=== PATIENT | female | born 1930 | race Caucasian/White ===

== ENCOUNTER → 2016-10-31 | Outpatient (CLI) | payer OTHER, BC ==
[~2016-10-31] MED LIST: ACET1TAB84 PO; ALPH1CAP PO; AMLO-110 PO; ATOR10TA88 PO; B-COCAP2 PO; BIOTPOW17 PO; CEPH500C2 PO; CHOLCAP5 PO; CYAN500T PO; FRRS300 PO; FURO-85 PO; KRIL1CAP7 PO; LACTCHW3 PO; MULTCAP36 PO; MULTTAB PO; POTA10CA28 PO; SULF800T23 PO; TYLOTC500 PO; VALS-58 PO
[2016-10-31 17:21] LABS: BLOOD UREA NITROGEN 24 mg/dl (7-18); BUN/CREATININE RATIO 29.1 (10-20); CALCIUM 9.3 mg/dl (8.5-10.1); CARBON DIOXIDE 29 mmol/L (21-32); CHLORIDE 106 mmol/L (98-107); CREATININE 0.84 mg/dl (0.60-1.20); GLUCOSE 95 mg/dl (70-99); POTASSIUM 3.6 mmol/L (3.5-5.1); SODIUM 142 mmol/L (136-145)
[2016-10-31 17:26] LABS: BASO % 0.1 %; BASO ABS # 0.01 K/uL (0-0.2); COMPLETE YES; EOS % 0.2 %; HEMATOCRIT 36.9 % (37-47); IG% 0.2 %; LYMPH ABS # 1.14 K/uL (1.2-3.4); MEAN CELL VOLUME 77.2 fL (80-100); MEAN CORPUSCULAR HEMOGLOBIN 24.5 pg (25-34); MEAN CORPUSCULAR HGB CONC 31.7 g/dl (32-36); MEAN PLATELET VOLUME 10.2 fL (7.4-10.4); MONO % 5.4 %; NEUT % 85.1 %; PLATELET COUNT 406 K/uL (130-400); RED BLOOD COUNT 4.78 M/uL (4.2-5.4); WHITE BLOOD COUNT 12.71 K/uL (4.8-10.8)
== END | disposition home or self-care (01) ==
LOC: C.LABBC 14:01
PROVIDERS: ATTEND Internal Medicine Geriatric Medicine
DX: I12.9 Hypertensive chronic kidney disease with stage 1 through stage 4 chronic kidney disease, or unspecified chronic kidney disease (principal); N18.9 Chronic kidney disease, unspecified; E21.3 Hyperparathyroidism, unspecified; M19.90 Unspecified osteoarthritis, unspecified site

== ENCOUNTER → 2016-11-13 | Outpatient (CLI) | payer OTHER, BC ==
[2016-11-13 11:46] LABS: MEAN CELL VOLUME 77.6 fL (80-100); MEAN CORPUSCULAR HEMOGLOBIN 25.1 pg (25-34); MEAN CORPUSCULAR HGB CONC 32.4 g/dl (32-36); MEAN PLATELET VOLUME 9.4 fL (7.4-10.4); PLATELET COUNT 295 K/uL (130-400); WHITE BLOOD COUNT 9.28 K/uL (4.8-10.8)
[2016-11-13 12:20] LABS: FERRITIN 32.3 ng/ml (8.0-388.0)
--- NOTE | 2016-11-20 07:45 | CODING QUERY MEDICAL NECESSITY ---
CQSUPPORTING DIAGNOSIS NEEDED A supporting diagnosis is required for the test/procedure performed on this patient in order for us to be reimbursed by the patient's insurance. Please provide a supporting diagnosis for the following test/procedure listed below next to the test name along with your signature. *If there is no additional diagnosis for this patient that would support the following test/procedure please document that below next to the test/procedure. Test(s)/Procedure(s) that require a supporting diagnosis: DOS 11/13/16 VITAMIN B12 TEST Provider Signature: Date: Thank you Trisha Villagomez Health Information Management Once completed, please kindly fax back to [phone] For questions please call [phone]
== END | disposition home or self-care (01) ==
LOC: C.LAB 10:48
PROVIDERS: ATTEND Internal Medicine Geriatric Medicine
DX: D64.9 Anemia, unspecified (principal)

== ENCOUNTER → 2016-11-21 | Outpatient (CLI) | payer OTHER, BC ==
--- NOTE | 2016-11-21 10:40 | DIAGNOSTIC IMAGING REPORT ---
ULTRASOUND VENOUS DOPPLER LWR EXT BILA CLINICAL HISTORY: BILAT LEG SWELLING COMPARISON STUDY: 11/25/2014 FINDINGS: Real-time and color flow Doppler imaging were performed. Flow was seen within the femoral, popliteal and calf veins with no intraluminal thrombus demonstrated. The saphenous vein is patent. There is a right popliteal cyst measuring 19 x 65 x 15 mm. There is a left popliteal cyst measuring 27 x 41 x 15 mm. IMPRESSION: No evidence of lower extremity DVT. Electronically signed by: Gregory Woodruff M.D. 11/21/2016 10:38 AM Dictated Date/Time: 11/21/2016 10:37 AM
== END | disposition home or self-care (01) ==
LOC: C.ULTRBC 09:50
PROVIDERS: ATTEND Internal Medicine Geriatric Medicine
DX: R60.0 Localized edema (principal)

== ENCOUNTER → 2016-11-28 | Outpatient (CLI) | payer OTHER, BC ==
--- NOTE | 2016-11-28 13:41 | DIAGNOSTIC IMAGING REPORT ---
FLUOROSCOPICALLY GUIDED LEFT HIP ANESTHETIC AND STEROID INJECTION CLINICAL HISTORY: LT HIP ARTHRITIS COMPARISON STUDY: None FLUOROSCOPY TIME: 41 seconds. A single fluoroscopic spot image was acquired.. FINDINGS: A timeout was performed. The risks the procedure were explained the patient informed consent was obtained. The patient was prepped and draped in sterile fashion. The skin was anesthetized 1% lidocaine. A 20-gauge spinal was introduced the joint capsule. Intra-articular location was documented with water-soluble contrast injection. 2 cc of betamethasone, and 3 cc of bupivacaine was then instilled into the joint capsule. There were no immediate complications. IMPRESSION: Successful intra-articular left hip injection. 2 cc of betamethasone and 3 cc of bupivacaine were introduced into the joint capsule. Electronically signed by: Gregory Woodruff M.D. 11/28/2016 1:39 PM Dictated Date/Time: 11/28/2016 1:37 PM
== END | disposition home or self-care (01) ==
LOC: C.RADBC 12:28
PROVIDERS: ATTEND Orthopaedic Surgery
DX: M16.12 Unilateral primary osteoarthritis, left hip (principal)

== ENCOUNTER → 2017-02-05 | Outpatient (CLI) | payer OTHER, BC ==
[~2017-02-05] MED LIST changes: +ATOR10TA82 PO; -ATOR10TA88 PO
[2017-02-05 13:28] LABS: COMPLETE YES; EOS % 0.4 %; HEMATOCRIT 39.1 % (37-47); IG% 0.2 %; LYMPH ABS # 1.22 K/uL (1.2-3.4); MEAN CELL VOLUME 81.5 fL (80-100); MEAN CORPUSCULAR HEMOGLOBIN 26.3 pg (25-34); MEAN CORPUSCULAR HGB CONC 32.2 g/dl (32-36); MEAN PLATELET VOLUME 9.8 fL (7.4-10.4); MONO % 4.1 %; NEUT % 83.3 %; PLATELET COUNT 289 K/uL (130-400); WHITE BLOOD COUNT 10.18 K/uL (4.8-10.8)
[2017-02-05 13:58] LABS: CHOLESTEROL/HDL RATIO 2.6
[2017-02-05 14:05] LABS: BLOOD UREA NITROGEN 25 mg/dl (7-18); BUN/CREATININE RATIO 29.5 (10-20); CARBON DIOXIDE 25 mmol/L (21-32); CHLORIDE 107 mmol/L (98-107); CREATININE 0.84 mg/dl (0.60-1.20); GLUCOSE 110 mg/dl (70-99); POTASSIUM 3.6 mmol/L (3.5-5.1); SODIUM 143 mmol/L (136-145)
[2017-02-05 14:15] LABS: CALCIUM 9.5 mg/dl (8.5-10.1)
== END | disposition home or self-care (01) ==
LOC: C.LABBC 10:11
PROVIDERS: ATTEND Internal Medicine Geriatric Medicine
DX: E78.5 Hyperlipidemia, unspecified (principal); I12.9 Hypertensive chronic kidney disease with stage 1 through stage 4 chronic kidney disease, or unspecified chronic kidney disease; M81.0 Age-related osteoporosis without current pathological fracture; D64.9 Anemia, unspecified; N18.9 Chronic kidney disease, unspecified

== ENCOUNTER 2017-03-28 12:50 | Emergency (ER) | payer OTHER, BC ==
[~2017-03-28 12:50] MED LIST changes: -ACET1TAB84 PO; -CEPH500C2 PO; -FRRS300 PO; -KRIL1CAP7 PO; -LACTCHW3 PO; -SULF800T23 PO
[2017-03-28 13:07] VITALS: TEMP 36.6; Ht 157.5 cm
[2017-03-28] MEDS ORDERED: KRIL1CAP7 PO (13:58)
[2017-03-28] MEDS ORDERED: FRRS300 PO (13:58)
[2017-03-28] MEDS ORDERED: ACET1TAB84 PO (13:58)
--- NOTE | 2017-03-28 14:01 | DIAGNOSTIC IMAGING REPORT ---
LEFT ANKLE 3 VIEWS CLINICAL HISTORY: Left ankle pain and swelling. Trauma. FINDINGS: 3 views of the left ankle are obtained. No prior studies are available for comparison at the time of dictation. The skeletal structures are osteopenic. No fracture is seen. The ankle mortise is intact. There is no significant joint effusion. Soft tissue edema is present throughout the visualized left lower extremity. Calcified phleboliths are noted in the pretibial region. There is a plantar calcaneal enthesophyte and mild degenerative spurring along the dorsal aspect of the tarsal bones. IMPRESSION: Soft tissue swelling with no radiographic evidence of left ankle fracture. Electronically signed by: Kayden Neff M.D. 03/28/2017 2:00 PM Dictated Date/Time: 03/28/2017 1:59 PM
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
[2017-03-28 15:55] VITALS: BP 148/54; PULSE 64; O2SAT 95
--- NOTE | 2017-03-28 23:32 | EMERGENCY ROOM VISIT NOTE ---
ED Visit Note First contact with patient: 15:14 I have personally seen and evaluated the patient with the PA. I agree with the diagnosis and management decisions and have been personally involved in the case. Please see Rebekah Holloway PA-C's notes for further details of the history, physical and visit.
[2017-03-30] MEDS ORDERED: CEPH500C2 PO (09:04)
[2017-04-05] MEDS ORDERED: CEPH500C2 PO (16:33)
[2017-04-05] MEDS ORDERED: SULF800T23 PO (16:33)
[2017-04-05] MEDS ORDERED: LACTCHW3 PO (16:33)
== END 2017-03-28 15:57 | disposition home or self-care (01) ==
LOC: C.EDB 12:51 → C.EDD 15:57
DX: S80.12XA Contusion of left lower leg, initial encounter (principal); X58.XXXA Exposure to other specified factors, initial encounter; I12.9 Hypertensive chronic kidney disease with stage 1 through stage 4 chronic kidney disease, or unspecified chronic kidney disease; N18.9 Chronic kidney disease, unspecified; E78.5 Hyperlipidemia, unspecified; Z86.19 Personal history of other infectious and parasitic diseases; Z79.899 Other long term (current) drug therapy; Z91.09 Other allergy status, other than to drugs and biological substances

== ENCOUNTER → 2017-03-28 | Outpatient (CLI) | payer OTHER, BC ==
[~2017-03-28] MED LIST changes: -ATOR10TA82 PO; +ATOR10TA88 PO
--- NOTE | 2017-03-28 12:51 | DIAGNOSTIC IMAGING REPORT ---
ULTRASOUND LEFT LOWER EXTREMITY VENOUS CLINICAL HISTORY: Left leg pain and erythema. COMPARISON STUDY: Left lower extremity venous ultrasound dated 01/04/2017. TECHNIQUE: Real-time, grayscale, and color Doppler sonography of the deep veins of the left lower extremity was performed from the inguinal crease to the calf. Compression and augmentation were utilized. FINDINGS: There is no sonographic evidence of deep venous thrombosis identified in the left lower extremity. The common femoral, superficial femoral, and popliteal veins are patent and normally compressible. The greater saphenous vein and the profunda femoris vein at the junction with the common femoral vein are clear. The visualized calf veins are patent. A popliteal cyst measures 4.8 x 1.2 x 2.9 cm. IMPRESSION: 1. There is no sonographic evidence of deep venous thrombosis identified in the left lower extremity. 2. Small popliteal cyst. Electronically signed by: Kayden Neff M.D. 03/28/2017 12:50 PM Dictated Date/Time: 03/28/2017 12:49 PM
== END | disposition home or self-care (01) ==
LOC: C.ULTR 12:09
PROVIDERS: ATTEND Emergency Medicine
DX: M79.605 Pain in left leg (principal); R23.8 Other skin changes; M71.22 Synovial cyst of popliteal space [Baker], left knee

== ENCOUNTER 2017-04-02 15:20 | Inpatient (IN) | payer OTHER, BC ==
[~2017-04-02] VITALS: Ht 154.9 cm; Wt 75.2 kg
[~2017-04-02 15:20] MED LIST changes: +ACET1TAB84 PO; -B-COCAP2 PO; -BIOTPOW17 PO; +CEPH500C2 PO; +FRRS300 PO; +KRIL1CAP7 PO; -TYLOTC500 PO; -VALS-58 PO
[2017-04-02 17:00] VITALS: BP 161/83; TEMP 36.8; O2SAT 94
[2017-04-02 17:01] VITALS: BP 161/83; PULSE 96; TEMP 36.8; O2SAT 94
[2017-04-02] MEDS ORDERED: PATIENT'S HEIGHT AND/OR WEIGHT NEEDED SCH (18:30)
[2017-04-02 18:32] VITALS: Ht 154.9 cm; Wt 75.2 kg
--- NOTE | 2017-04-02 19:03 | Medical Student: [facility] ---
Med Student History & Physical Date & Time of Service: Apr 02, 2017 at 18:56 Chief Complaint: Left Lower Extremity Cellulitis Primary Care Physician: Josiah Goldstein M.D. History of Present Illness Source: patient, family (Kayden (son)) Mrs. 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 She sustained a wound on her left anterior agarwal when she ran into a table 2 weeks ago and went to her local urgent care to have the leg bandaged. She over the next few days she developed warmth and sensitivity to touch in her left leg which prompted her to see her PCP Dr. Goldstein. She was referred to the [facility] wound care clinic where she underwent wound debridement, cultures positive for Staph aureus and she was started on Keflex on 03/28/17. She returned to the wound care clinic on 04/02/17 for f/u and her wound had enlarged, prompting direct admission to the inpatient medical floor for suspected nosocomial cellulitis of the left lower extremity with increasing leg swelling and tenderness to touch. Bilateral lower extremity US negative for DVTs. Repeat wound cultures on 04/02/17 pending. Past Medical/Surgical History Medical Problems: (1) Contusion of left leg Status: Acute D&C MOHs surgery for squamous cell carcinoma Social History Smoking Status: Never Smoker Alcohol Use: occasionally Drug Use: none Marital Status: Housing status: lives alone Occupational Status: retired Immunizations History of Influenza Vaccine: Yes History of Tetanus Vaccine?: Yes History of Pneumococcal: Yes History of Hepatitis B Vaccine: No Allergies Coded Allergies: Iodine (Verified Allergy, Mild, RASH, 03/28/17) topical Povidone Iodine (Verified Allergy, Mild, RASH, 03/28/17) topical Uncoded Allergies: [id number] (Allergy, Mild, RASH, 03/11/15) [id number] (Allergy, Mild, RASH, 03/11/15) Medications Acetaminophen (Tylenol Arthritis Ext Rel), 650 MG PO Q8H Alpha-Lipoic Acid (Thioctic Ac (Alpha-Lipoic Acid), 600 MG PO DAILY Amlodipine (Norvasc), 5 MG PO DAILY Atorvastatin (Lipitor), 10 MG PO HS Cephalexin Monohydrate (Keflex), 500 MG PO TID Cholecalciferol (Vitamin D3), 1 CAP PO DAILY Cyanocobalamin (Vitamin B-12), 1,000 MCG PO DAILY Ferrous Sulfate (Ferrous Sulfate), 325 MG PO DAILY Furosemide (Lasix), 20 MG PO DAILY Krill Oil (Krill Oil [place]-3), 1 CAP PO DAILY Multiple Vitamins W/ Minerals (Preservision/Lutein), 1 CAPSULE PO BID Multivitamins/Minerals (Mvi With Minerals), 1 TAB PO DAILY Potassium Chloride (Micro-K Ext Rel), 10 MEQ PO BID Review of Systems Constitutional: No fever, No chills, No sweats Eyes: No eye pain, No diplopia ENT: No sore throat, No trouble swallowing Respiratory: No cough, No wheezing, No shortness of breath Cardiovascular: + edema (L>R), No chest pain, No palpitations Abdomen: No pain, No nausea, No vomiting Musculoskeletal: + swelling (LLE > RLE ), + calf pain Genitourinary - Female: No urinary frequency, No urinary urgency, No urinary incontinence Neurologic: No paralysis, No weakness, No numbness/tingling Physical Exam Vital Signs (24 Hours) Date Time Temp Pulse Resp B/P (MAP) Pulse Ox O2 Delivery O2 Flow Rate FiO2 04/02/17 17:01 36.8 96 18 161/83 (109) 94 Room Air 04/02/17 17:00 36.8 18 161/83 General Appearance: + mild distress, + obese Head: normocephalic, atraumatic Eyes: normal inspection, PERRL, EOMI ENT: normal ENT inspection, hearing grossly normal, pharynx normal Neck: supple, no adenopathy, no carotid bruits Respiratory/Chest: lungs clear, normal breath sounds, no respiratory distress, no accessory muscle use Cardiovascular: regular rate, rhythm, no gallop, no murmur Abdomen/GI: normal bowel sounds, non tender, soft Extremities/Musculoskelatal: + calf tenderness (bilateral lower extremities exquisitely tender to palpation), + swelling (L>R, warm lower legs) Neurologic/Psych: ship's captain II-XII nml as tested, alert, normal mood/affect, oriented x 3 Skin: + pertinent finding (swollen left lower leg approx 5cm x 15cm and outlined by wound care, skin is taut and warm to touch) Impression Assessment and Plan This is a 86yo female with a 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 Initial cultures showed Staph aureus. Repeat cultures from 04/02/17 pending. Plan: 1. Left lower extremity cellulitis, cultures 04/02/17 pending -Start Vancomycin 1800mg [id number], 536ml @ 200mls/hr -Start ceftriaxone 1g, 50ml @ 100mls/hr -vancomycin trough level, draw on 04/04/17 before second dose of vancomycin -CBC drawn 04/03/17 AM -CMP drawn 04/03/17 AM -Consider PICC line as patient has history of "rolling veins" and is a hard stick 2. ?CHF -Continue home furosemide 20mg PO daily -Continue home potassium chloride 10meq PO daily 3. Hyperlipidemia -Continue home atorvastatin 10mg PO daily 4. Hypertension -Continue home amlodipine 5mg PO daily Pain -PRN Tylenol 650mg PO [id number] PRN pain FEN/GI -Regular diet -vitamin D 5000IU PO daily -vitamin B12 1000mcg PO daily DVT prophylaxis -Patient may ambulate as tolerated Disposition -Location: home to [place] [facility] -Date: TBD Level of Care Med/Surg DVT Prophylaxis patient low risk - not indicated (patient may ambulate as tolerated) Social Service Consult None Apply
[2017-04-02] MEDS ORDERED: VANCOMYCIN INJ 1,800 MG in SODIUM CHLORIDE 0.9% 500ML 500 ML IV ONE (19:30)
[2017-04-02] MEDS ORDERED: ONDANSETRON INJ 2 MG/ML 2 ML VIAL IV PRN (20:00)
[2017-04-02] MEDS ORDERED: ACETAMINOPHEN 325 MG TAB PO PRN (20:00)
[2017-04-02 20:24] LABS: COMPLETE YES; EOS % 0.7 %; HEMATOCRIT 40.5 % (37-47); IG% 0.3 %; LYMPH % 11.4 %; LYMPH ABS # 1.23 K/uL (1.2-3.4); MEAN CELL VOLUME 82.3 fL (80-100); MEAN CORPUSCULAR HEMOGLOBIN 27.6 pg (25-34); MEAN CORPUSCULAR HGB CONC 33.6 g/dl (32-36); MEAN PLATELET VOLUME 9.4 fL (7.4-10.4); MONO % 7.9 %; NEUT % 79.7 %; PLATELET COUNT 303 K/uL (130-400); RED BLOOD COUNT 4.92 M/uL (4.2-5.4)
--- NOTE | 2017-04-02 20:26 | Pharmacy Progress Note ---
Pharmacy Abx Initial Consult Date of Service Apr 02, 2017. Pharmacy Dosing Scope Date of Consult: 04/02/17 Consultation requested by: Dr. Luong Pharmacy is consulted to initiate Vancomycin IV dosing therapy, order appropriate labs and adjust drug dose/frequency. Subjective The patient is a 86 year old female admitted on Apr 02, 2017 at 16:36. Objective Height (Feet): 5 Height (Inches): 1.00 Weight (Kilograms): 75.200 Vital Signs (Past 12Hrs) Vital Signs Past 12 Hours Date Time Temp Pulse Resp B/P (MAP) Pulse Ox O2 Delivery O2 Flow Rate FiO2 04/02/17 17:01 36.8 96 18 161/83 (109) 94 Room Air 04/02/17 17:00 36.8 18 161/83 Lab Results (24Hrs) Laboratory Tests (24 Hours) Test 04/02/17 20:03 Risk Factors for Resistance * Antimicrobial use within the last 90 days; Keflex 03/28/17 to present Assessment & Plan Assessment 86 year old female admitted with left lower extremity cellulitis secondary to anterior agarwal wound * worsening pain and swelling despite being prescribed keflex PO on 03/28/17 * left leg culture from 03/28 grew MSSA * h/o walters sensitive Pseudomonas in left leg drainage (2010) Plan Vancomycin + Ceftriaxone IV for treatment of LLE cellulitis Vancomycin IV * Loading dose: 1800 mg (21 mg/kg) * Maintenance dose: 1250 mg IV (16.6 mg/kg) every 18 hours * Goal trough level for cellulitis : 15 to 20 mcg/mL (pending C&S results) * Trough level ordered for 04/05/17 Ceftriaxone 1g IV daily - not pharmacy consult Pharmacy will continue to follow and will adjust dose/frequency as necessary. Thank you.
[2017-04-02 20:43] LABS: BUN/CREATININE RATIO 26.1 (10-20); CALCIUM 9.2 mg/dl (8.5-10.1); CREATININE 0.74 mg/dl (0.60-1.20); POTASSIUM 3.7 mmol/L (3.5-5.1)
[2017-04-02 20:46] LABS: ALB/GLOB RATIO 0.9 (0.9-2)
[2017-04-02] MEDS: POTASSIUM CHLORIDE 10 MEQ TABCR PO SCH (21:00)
[2017-04-02] MEDS ORDERED: ATORVASTATIN 10 MG TAB PO SCH (21:00)
[2017-04-02] MEDS ORDERED: VANCOMYCIN CONSULT ACTIVE PRN (21:30)
[2017-04-02] MEDS: CEFTRIAXONE SOD INJ 1 GM in DEXTROSE 5% ADD-VANTAGE 50ML 50 ML IV SCH (21:33)
[2017-04-02 23:09] VITALS: BP 135/82; PULSE 78; TEMP 36.6; O2SAT 92
--- NOTE | 2017-04-03 02:38 | History and Physical ---
History & Physical Date & Time of Service: Apr 03, 2017 at 02:27. Patient was seen and examined on 04/02/2017 Chief Complaint: Left Lower Extremity Cellulitis Primary Care Physician: Josiah Goldstein M.D. History of Present Illness Source: patient, family The patient is a 86-year-old female who was referred from the wound care center today for persistent and noted worsening of left lower extremity cellulitis despite being on Keflex on March 28. Her wound culture has shown staph aureus pansensitive. She has been treated with Aquacel AG dressing. 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 The symptoms initially began after she ran into a table approximately 2 weeks ago and sustained a wound to her left anterior agarwal. Past Medical/Surgical History 1. Squamous cell carcinoma of the leg. 2. Bilateral knee osteoarthritis 3. Congestive heart failure 4. Hypertension 5. Hyperlipidemia 6. Chronic venous insufficiency 7. Vitamin B12 deficiency Family History Noncontributory Social History Smoking Status: Never Smoker Smokeless Tobacco Use: No Alcohol Use: none Drug Use: none Marital Status: Housing status: lives alone Occupational Status: retired Immunizations History of Influenza Vaccine: Yes History of Tetanus Vaccine?: Yes History of Pneumococcal: Yes History of Hepatitis B Vaccine: No Multi-Drug Resistant Organisms History of MDRO: No Allergies Coded Allergies: Iodine (Verified Allergy, Mild, RASH, 03/28/17) topical Povidone Iodine (Verified Allergy, Mild, RASH, 03/28/17) topical Uncoded Allergies: [id number] (Allergy, Mild, RASH, 03/11/15) [id number] (Allergy, Mild, RASH, 03/11/15) Home Medications Scheduled Acetaminophen (Tylenol Arthritis Ext Rel), 650 MG PO Q8H Alpha-Lipoic Acid (Thioctic Ac (Alpha-Lipoic Acid), 600 MG PO DAILY Amlodipine (Norvasc), 5 MG PO DAILY Atorvastatin (Lipitor), 10 MG PO HS Cephalexin Monohydrate (Keflex), 500 MG PO TID Cholecalciferol (Vitamin D3), 1 CAP PO DAILY Cyanocobalamin (Vitamin B-12), 1,000 MCG PO DAILY Ferrous Sulfate (Ferrous Sulfate), 325 MG PO DAILY Furosemide (Lasix), 20 MG PO DAILY Krill Oil (Krill Oil [place]-3), 1 CAP PO DAILY Multiple Vitamins W/ Minerals (Preservision/Lutein), 1 CAPSULE PO BID Multivitamins/Minerals (Mvi With Minerals), 1 TAB PO DAILY Potassium Chloride (Micro-K Ext Rel), 10 MEQ PO BID Review of Systems The patient denies chest pain, palpitations, shortness of breath, cough, sore throat, fevers, chills, sweats, weight change, fatigue, nausea, vomiting, abdominal pain, pelvic pain, blood in urine or stool, dysuria, urinary frequency or urgency, lightheadedness, dizziness, headache, memory loss, imbalance, focal or generalized weakness, numbness or tingling in arms, generalized arthralgias or myalgias, back or neck pain, night sweats, or allergy symptoms. The review of systems is otherwise negative other than for that already noted above, and at least 10 systems have been reviewed. Physical Exam Vital Signs Date Time Temp Pulse Resp B/P (MAP) Pulse Ox O2 Delivery O2 Flow Rate FiO2 04/03/17 00:45 Room Air 04/02/17 23:09 36.6 78 18 135/82 (99) 92 Room Air 04/02/17 17:01 36.8 96 18 161/83 (109) 94 Room Air 04/02/17 17:00 36.8 18 161/83 04/02/17 17:00 94 Room Air The patient is awake, well-developed and adequately nourished, alert and oriented 3, normocephalic and atraumatic, lying in bed and in no acute distress. HEENT--PERRL, EOMI, mucous membranes and oropharynx normal. Neck--supple, no JVD or bruits, thyroid normal, trachea midline, no adenopathy. Heart--normal S1 and S2, no extra beats, no murmurs, rubs or gallops. Lungs--clear bilaterally with good air movement, no respiratory distress, no accessory muscle use. Abdomen--normal bowel sounds and soft, nontender and nondistended, no hernias or masses, no organomegaly. Extremities--There are good distal pulses b/l. Dermatologic--swelling of left leg compared to right with trace to 1+ pitting edema, erythema area of erythema with 2 areas of surface abrasion. Neurologic--cranial nerves II through XII grossly intact, motor and sensory examination normal. Rheumatologic--normal range of motion Psychiatric--normal affect. Diagnostics Laboratory Results Results Past 24 Hours Test 04/02/17 20:03 Range/Units White Blood Count 10.80 4.8-10.8 K/uL Red Blood Count 4.92 4.2-5.4 M/uL Hemoglobin 13.6 12.0-16.0 g/dL Hematocrit 40.5 37-47 % Mean Corpuscular Volume 82.3 80-100 fL Mean Corpuscular Hemoglobin 27.6 25-34 pg Mean Corpuscular Hemoglobin Concent 33.6 32-36 g/dl Platelet Count 303 130-400 K/uL Mean Platelet Volume 9.4 7.4-10.4 fL Neutrophils (%) (Auto) 79.7 % Lymphocytes (%) (Auto) 11.4 % Monocytes (%) (Auto) 7.9 % Eosinophils (%) (Auto) 0.7 % Basophils (%) (Auto) 0.0 % Neutrophils # (Auto) 8.61 1.4-6.5 K/uL Lymphocytes # (Auto) 1.23 1.2-3.4 K/uL Monocytes # (Auto) 0.85 0.11-0.59 K/uL Eosinophils # (Auto) 0.08 0-0.5 K/uL Basophils # (Auto) 0.00 0-0.2 K/uL RDW Standard Deviation 47.1 36.4-46.3 fL RDW Coefficient of Variation 15.5 11.5-14.5 % Immature Granulocyte % (Auto) 0.3 % Immature Granulocyte # (Auto) 0.03 0.00-0.02 K/uL Sodium Level 141 136-145 mmol/L Potassium Level 3.7 3.5-5.1 mmol/L Chloride Level 107 98-107 mmol/L Carbon Dioxide Level 31 21-32 mmol/L Anion Gap 3.0 3-11 mmol/L Blood Urea Nitrogen 19 7-18 mg/dl Creatinine 0.74 0.60-1.20 mg/dl Est Creatinine Clear Calc Drug Dose 52.5 ml/min Estimated GFR () 86.2 Estimated GFR (Non- 74.4 BUN/Creatinine Ratio 26.1 10-20 Random Glucose 100 70-99 mg/dl Calcium Level 9.2 8.5-10.1 mg/dl Total Bilirubin 0.3 0.2-1 mg/dl Aspartate Amino Transf (AST/SGOT) 18 15-37 U/L Alanine Aminotransferase (ALT/SGPT) 24 12-78 U/L Alkaline Phosphatase 105 45-117 U/L Total Protein 6.8 6.4-8.2 gm/dl Albumin 3.3 3.4-5.0 gm/dl Globulin 3.5 2.5-4.0 gm/dl Albumin/Globulin Ratio 0.9 0.9-2 Impression Assessment and Plan Left lower extremity cellulitis/bilateral squamous cell carcinoma--stop oral Keflex. Start Vancomycin IV per pharmacokinetic monitoring, and ceftriaxone 1 g IV daily. Keep leg from being dependent. Consult wound care. Consult infectious disease Patient reports being a difficult IV stick, therefore suggested to consider a PICC line. Hypertension/CHF versus Venous insufficiency--continue amlodipine 5 mg by mouth daily, furosemide 20 mg by mouth daily and potassium chloride 10 mEq by mouth twice a day. Hyperlipidemia--continue atorvastatin 10 mg by mouth at bedtime. Vitamin B-12 deficiency--continue supplement 1000 g by mouth daily. Continue vitamin D, ferrous sulfate and multivitamins with minerals. Level of Care Med/Surg Advanced Directives Existing Advance Directive: No Existing Living Will: No Existing Power of Carbon Dioxide Operator: Yes Resuscitation Status FULL RESUSCITATION VTE Prophylaxis VTE Risk Assessment Done? Y/N: Yes Risk Level: Moderate Given or contraindicated: Treatment not indicated
[2017-04-03 07:22] LABS: BASO % 0.1 %; BASO ABS # 0.01 K/uL (0-0.2); COMPLETE YES; EOS % 1.6 %; HEMATOCRIT 39.4 % (37-47); IG% 0.1 %; LYMPH % 14.6 %; LYMPH ABS # 1.08 K/uL (1.2-3.4); MEAN CELL VOLUME 82.9 fL (80-100); MEAN CORPUSCULAR HEMOGLOBIN 27.4 pg (25-34); MEAN PLATELET VOLUME 9.5 fL (7.4-10.4); NEUT % 75.6 %; PLATELET COUNT 271 K/uL (130-400); RED BLOOD COUNT 4.75 M/uL (4.2-5.4); WHITE BLOOD COUNT 7.39 K/uL (4.8-10.8)
[2017-04-03 07:26] VITALS: BP 160/89; PULSE 78; TEMP 36.4; O2SAT 93
[2017-04-03 07:48] LABS: BUN/CREATININE RATIO 21.7 (10-20); CALCIUM 8.8 mg/dl (8.5-10.1); CREATININE 0.63 mg/dl (0.60-1.20); MAGNESIUM 2.3 mg/dl (1.8-2.4); POTASSIUM 3.7 mmol/L (3.5-5.1)
[2017-04-03] MEDS: FERROUS SULFATE 325 MG TAB PO SCH (07:58)
[2017-04-03] MEDS: POTASSIUM CHLORIDE 10 MEQ TABCR PO SCH ×2 (07:58→20:34)
[2017-04-03] MEDS: FUROSEMIDE 20 MG TAB PO SCH (07:58)
[2017-04-03] MEDS: CYANOCOBALAMIN 500 MCG TAB (VIT B-12) PO SCH (07:59)
[2017-04-03] MEDS: CHOLECALCIFEROL 1000 INTER.UNIT TAB PO SCH (07:59)
[2017-04-03] MEDS: ATORVASTATIN 10 MG TAB PO SCH (07:59)
[2017-04-03] MEDS: AMLODIPINE BESYLATE 5 MG TAB PO SCH (07:59)
--- NOTE | 2017-04-03 09:54 | Medical Consult ---
Consultation Date of Consultation: Apr 03, 2017. Attending Physician: Jamie Luong M.D. Reason for Consultation: Left lower extremity cellulitis History of Present Illness 86-year-old female in reasonably good health status post removal of squamous cell carcinoma from her left leg, who then suffered laceration recently involving her left agarwal, was seen at an urgent care center treated with Steri- Strips. She eventually went to the wound Care Center were cultures were done and patient recently grew a methicillin sensitive Staph aureus. She was started on cephalexin but very soon after developed increasing redness and severe pain and tenderness. No associated fever or chills. She was seen at the wound Care Center and referred for admission to the hospital. She has been started empirically on vancomycin and ceftriaxone and there has been improvement overnight with receding of the erythema and decrease in the tenderness. Remains afebrile. Cultures are pending. Past Medical/Surgical History Medical Problems: (1) Contusion of left leg Status: Acute Past Medical/Surgical History 1. Squamous cell carcinoma of the leg. 2. Bilateral knee osteoarthritis 3. Congestive heart failure 4. Hypertension 5. Hyperlipidemia 6. Chronic venous insufficiency 7. Vitamin B12 deficiency 8. D+C Family History Noncontributory Social History Smoking Status: Never Smoker Smokeless Tobacco Use: No Alcohol Use: none Drug Use: none Marital Status: Occupation Status: retired Allergies Coded Allergies: Iodine (Verified Allergy, Mild, RASH, 03/28/17) topical Povidone Iodine (Verified Allergy, Mild, RASH, 03/28/17) topical Current Inpatient Medications Current Inpatient Medications Medications (Trade) Dose Ordered Sig/Giovani Route Start Time Stop Time Status Last Admin Dose Admin Ceftriaxone Sodium 1 gm/ Dextrose 50 ml @ 100 mls/hr Q24H IV 04/02/17 19:00 04/12/17 18:59 04/02/17 21:33 100 MLS/HR Acetaminophen (Tylenol Tab) 650 mg Q4H PRN PO 04/02/17 20:00 05/02/17 19:59 Amlodipine Besylate (Norvasc Tab) 5 mg DAILY PO 04/03/17 09:00 05/03/17 08:59 04/03/17 07:59 5 MG Cyanocobalamin (Vitamin B-12 Tab) 1,000 mcg DAILY PO 04/03/17 09:00 05/03/17 08:59 04/03/17 07:59 1,000 MCG Ferrous Sulfate (Feosol Tab) 325 mg DAILY PO 04/03/17 09:00 05/03/17 08:59 04/03/17 07:58 325 MG Furosemide (Lasix Tab) 20 mg DAILY PO 04/03/17 09:00 05/03/17 08:59 04/03/17 07:58 20 MG Potassium Chloride (Klor-Con M10) 10 meq BID PO 04/02/17 21:00 05/02/17 20:59 04/03/17 07:58 10 MEQ Cholecalciferol (Vitamin D Tab) 5,000 inter.unit QAM PO 04/03/17 09:00 05/03/17 08:59 04/03/17 07:59 5,000 INTER.UNIT Ondansetron HCl (Zofran Inj) 4 mg Q6H PRN IV 04/02/17 20:00 05/02/17 19:59 Vancomycin HCl (Consult) 1 ea UD PRN N/A 04/02/17 21:30 05/02/17 21:29 Vancomycin HCl 1250 mg/Sodium Chloride 275 ml @ 125 mls/hr Q18H IV 04/03/17 14:00 04/12/17 20:59 Atorvastatin Calcium (Lipitor Tab) 10 mg QAM PO 04/03/17 09:00 05/02/17 20:59 04/03/17 07:59 10 MG Review of Systems All systems were reviewed and are negative except as per HPI Physical Exam Date Time Temp Pulse Resp B/P (MAP) Pulse Ox O2 Delivery O2 Flow Rate FiO2 04/03/17 08:42 Room Air 04/03/17 07:26 36.4 78 18 160/89 (112) 93 Room Air 04/03/17 00:45 Room Air 04/02/17 23:09 36.6 78 18 135/82 (99) 92 Room Air 04/02/17 17:01 36.8 96 18 161/83 (109) 94 Room Air 04/02/17 17:00 36.8 18 161/83 04/02/17 17:00 94 Room Air General Appearance: WD/WN, no apparent distress Head: normocephalic, atraumatic Eyes: normal inspection, EOMI, sclerae normal ENT: normal ENT inspection, pharynx normal Neck: supple, no adenopathy, thyroid normal, trachea midline Respiratory/Chest: chest non-tender, lungs clear, normal breath sounds, no respiratory distress Cardiovascular: regular rate, rhythm, no gallop, no murmur Abdomen/GI: normal bowel sounds, non tender, soft, no organomegaly Back: normal inspection, no CVA tenderness Extremities/Musculoskelatal: no calf tenderness, normal capillary refill Neurologic/Psych: alert, oriented x 3 Skin: normal color, no rash, + pertinent finding (Open wound left lower leg anterior with surrounding erythema, has receded from markings from admission) Lymphatic: no adenopathy Laboratory Results Last 24 Hours Test 04/02/17 20:03 04/03/17 07:00 White Blood Count 10.80 K/uL 7.39 K/uL Red Blood Count 4.92 M/uL 4.75 M/uL Hemoglobin 13.6 g/dL 13.0 g/dL Hematocrit 40.5 % 39.4 % Mean Corpuscular Volume 82.3 fL 82.9 fL Mean Corpuscular Hemoglobin 27.6 pg 27.4 pg Mean Corpuscular Hemoglobin Concent 33.6 g/dl 33.0 g/dl Platelet Count 303 K/uL 271 K/uL Mean Platelet Volume 9.4 fL 9.5 fL Neutrophils (%) (Auto) 79.7 % 75.6 % Lymphocytes (%) (Auto) 11.4 % 14.6 % Monocytes (%) (Auto) 7.9 % 8.0 % Eosinophils (%) (Auto) 0.7 % 1.6 % Basophils (%) (Auto) 0.0 % 0.1 % Neutrophils # (Auto) 8.61 K/uL 5.58 K/uL Lymphocytes # (Auto) 1.23 K/uL 1.08 K/uL Monocytes # (Auto) 0.85 K/uL 0.59 K/uL Eosinophils # (Auto) 0.08 K/uL 0.12 K/uL Basophils # (Auto) 0.00 K/uL 0.01 K/uL RDW Standard Deviation 47.1 fL 47.3 fL RDW Coefficient of Variation 15.5 % 15.6 % Immature Granulocyte % (Auto) 0.3 % 0.1 % Immature Granulocyte # (Auto) 0.03 K/uL 0.01 K/uL Sodium Level 141 mmol/L 144 mmol/L Potassium Level 3.7 mmol/L 3.7 mmol/L Chloride Level 107 mmol/L 110 mmol/L Carbon Dioxide Level 31 mmol/L 29 mmol/L Anion Gap 3.0 mmol/L 5.0 mmol/L Blood Urea Nitrogen 19 mg/dl 14 mg/dl Creatinine 0.74 mg/dl 0.63 mg/dl Est Creatinine Clear Calc Drug Dose 52.5 ml/min 61.6 ml/min Estimated GFR () 86.2 95.5 Estimated GFR (Non- 74.4 82.4 BUN/Creatinine Ratio 26.1 21.7 Random Glucose 100 mg/dl 83 mg/dl Calcium Level 9.2 mg/dl 8.8 mg/dl Total Bilirubin 0.3 mg/dl Aspartate Amino Transf (AST/SGOT) 18 U/L Alanine Aminotransferase (ALT/SGPT) 24 U/L Alkaline Phosphatase 105 U/L Total Protein 6.8 gm/dl Albumin 3.3 gm/dl Globulin 3.5 gm/dl Albumin/Globulin Ratio 0.9 Magnesium Level 2.3 mg/dl Assessment & Plan left lower extremity cellulitis, likely a Staph aureus, with what appears to be good response to current IV antibiotics. Will likely only need another 24- 48 hours of IV therapy, we will re-evaluate tomorrow.
[2017-04-03] MEDS: VANCOMYCIN INJ 1,250 MG in SODIUM CHLORIDE 0.9% 250ML 250 ML IV SCH (14:05)
[2017-04-03 15:04] VITALS: BP 147/81; PULSE 80; TEMP 36.7; O2SAT 93
[2017-04-03 16:03] VITALS: O2SAT 93
[2017-04-03] MEDS: CEFTRIAXONE SOD INJ 1 GM in DEXTROSE 5% ADD-VANTAGE 50ML 50 ML IV SCH (18:45)
--- NOTE | 2017-04-03 19:33 | Progress Note ---
Subjective Date of Service: Apr 03, 2017. Subjective Pt evaluation today including: conversation w/ patient, conversation w/ family , physical exam, chart review, lab review, review of inpatient medication list Problem List Medical Problems: (1) Contusion of left leg Status: Acute Review of Systems Constitutional: No see HPI, No fever, No chills, No sweats, No weight loss, No weakness, No fatigue, No problem reported Eyes: No see HPI, No worsening of vision, No eye pain, No redness, No discharge , No diplopia, No problem reported ENT: No see HPI, No hearing loss, No unusual epistaxis, No nasal symptoms, No sore throat, No tinnitus, No dental problems, No trouble swallowing, No problem reported Respiratory: No see HPI, No cough, No sputum, No wheezing, No shortness of breath, No dyspnea on exertion, No dyspnea at rest, No hemoptysis, No problem reported Cardiac: No see HPI, No chest pain, No orthopnea, No PND, No edema, No claudication, No palpitations, No problem reported Abdomen: No see HPI, No pain, No nausea, No vomiting, No diarrhea, No constipation, No GI bleeding, No problem reported Musculoskeletal: + problem reported (left lower ext pain), No see HPI, No joint pain, No muscle pain, No swelling, No calf pain Neurologic: No see HPI, No memory loss, No paralysis, No weakness, No numbness/ tingling, No vertigo, No balance problems, No problem reported Psychiatric: No see HPI, No depression symptoms, No anhedonism, No anxiety, No insomnia, No substance abuse, No problem reported Heme: No see HPI, No abnormal bleeding/bruising, No clotting problems, No swollen lymph nodes, No night sweats, No problem reported Endo: No see HPI, No fatigue, No excessive thirst, No excessive urination, No problem reported Skin: No see HPI, No rash, No itch, No new/changing skin lesions, No color change, No bleeding, No problem reported Objective Vital Signs Date Time Temp Pulse Resp B/P (MAP) Pulse Ox O2 Delivery O2 Flow Rate FiO2 04/03/17 16:03 93 Room Air 04/03/17 15:04 36.7 80 18 147/81 (103) 93 Room Air 04/03/17 08:42 Room Air 04/03/17 07:26 36.4 78 18 160/89 (112) 93 Room Air 04/03/17 00:45 Room Air 04/02/17 23:09 36.6 78 18 135/82 (99) 92 Room Air Physical Exam General Appearance: WD/WN, no apparent distress Eyes: normal inspection, EOMI ENT: normal ENT inspection, hearing grossly normal Neck: supple Respiratory/Chest: chest non-tender, lungs clear, normal breath sounds, no respiratory distress, no accessory muscle use Cardiovascular: regular rate, rhythm, no edema, no gallop, no JVD, no murmur Abdomen: normal bowel sounds, non tender, soft, no organomegaly Extremities: normal range of motion, + inflammation (left lower ext erythem and swelling, right lower ext scar of her Sq cell carcinoma healed well) Neurologic/Psychiatric: water conservationist II-XII nml as tested, no motor/sensory deficits, alert, normal mood/affect, oriented x 3 Skin: normal color, warm/dry, no rash Laboratory Results Last 24 Hours Test 04/02/17 20:03 04/03/17 07:00 White Blood Count 10.80 K/uL 7.39 K/uL Red Blood Count 4.92 M/uL 4.75 M/uL Hemoglobin 13.6 g/dL 13.0 g/dL Hematocrit 40.5 % 39.4 % Mean Corpuscular Volume 82.3 fL 82.9 fL Mean Corpuscular Hemoglobin 27.6 pg 27.4 pg Mean Corpuscular Hemoglobin Concent 33.6 g/dl 33.0 g/dl Platelet Count 303 K/uL 271 K/uL Mean Platelet Volume 9.4 fL 9.5 fL Neutrophils (%) (Auto) 79.7 % 75.6 % Lymphocytes (%) (Auto) 11.4 % 14.6 % Monocytes (%) (Auto) 7.9 % 8.0 % Eosinophils (%) (Auto) 0.7 % 1.6 % Basophils (%) (Auto) 0.0 % 0.1 % Neutrophils # (Auto) 8.61 K/uL 5.58 K/uL Lymphocytes # (Auto) 1.23 K/uL 1.08 K/uL Monocytes # (Auto) 0.85 K/uL 0.59 K/uL Eosinophils # (Auto) 0.08 K/uL 0.12 K/uL Basophils # (Auto) 0.00 K/uL 0.01 K/uL RDW Standard Deviation 47.1 fL 47.3 fL RDW Coefficient of Variation 15.5 % 15.6 % Immature Granulocyte % (Auto) 0.3 % 0.1 % Immature Granulocyte # (Auto) 0.03 K/uL 0.01 K/uL Sodium Level 141 mmol/L 144 mmol/L Potassium Level 3.7 mmol/L 3.7 mmol/L Chloride Level 107 mmol/L 110 mmol/L Carbon Dioxide Level 31 mmol/L 29 mmol/L Anion Gap 3.0 mmol/L 5.0 mmol/L Blood Urea Nitrogen 19 mg/dl 14 mg/dl Creatinine 0.74 mg/dl 0.63 mg/dl Est Creatinine Clear Calc Drug Dose 52.5 ml/min 61.6 ml/min Estimated GFR () 86.2 95.5 Estimated GFR (Non- 74.4 82.4 BUN/Creatinine Ratio 26.1 21.7 Random Glucose 100 mg/dl 83 mg/dl Calcium Level 9.2 mg/dl 8.8 mg/dl Total Bilirubin 0.3 mg/dl Aspartate Amino Transf (AST/SGOT) 18 U/L Alanine Aminotransferase (ALT/SGPT) 24 U/L Alkaline Phosphatase 105 U/L Total Protein 6.8 gm/dl Albumin 3.3 gm/dl Globulin 3.5 gm/dl Albumin/Globulin Ratio 0.9 Magnesium Level 2.3 mg/dl Assessment and Plan 86/F with Hx of B/L lower ext sq cell carcinoma. left lower ext got infected. failed out patient Abx therapy and sent from wound clinic Left lower extremity cellulitis/bilateral squamous cell carcinoma--stop oral Keflex. currently Vancomycin IV / ceftriaxone 1 g IV daily. responded well Dr. Mendez recommended 48 hours of IV therapy then will re evaluate well add lactinex labs in am Hypertension/CHF continue amlodipine 5 mg by mouth daily furosemide 20 mg by mouth daily and potassium chloride 10 mEq by mouth twice a day. Hyperlipidemia continue atorvastatin 10 mg by mouth at bedtime. Vitamin B-12 deficiency continue supplement 1000 g by mouth daily. Continue vitamin D, ferrous sulfate and multivitamins with minerals. Heparin for DVt prophylaxis
[2017-04-03 23:42] VITALS: BP 148/87; PULSE 80; TEMP 36.9; O2SAT 92
[2017-04-04 07:33] VITALS: BP 145/91; PULSE 88; TEMP 36.4; O2SAT 95
[2017-04-04] MEDS: VANCOMYCIN INJ 1,250 MG in SODIUM CHLORIDE 0.9% 250ML 250 ML IV SCH (08:03)
[2017-04-04] MEDS: LACTOBACILLUS ACIDOPHILUS 1 GM PACK PO SCH ×3 (08:03→17:52)
[2017-04-04] MEDS: FERROUS SULFATE 325 MG TAB PO SCH (08:04)
[2017-04-04] MEDS: ATORVASTATIN 10 MG TAB PO SCH (08:04)
[2017-04-04] MEDS: POTASSIUM CHLORIDE 10 MEQ TABCR PO SCH ×2 (08:04→20:46)
[2017-04-04] MEDS: FUROSEMIDE 20 MG TAB PO SCH (08:04)
[2017-04-04] MEDS: AMLODIPINE BESYLATE 5 MG TAB PO SCH (08:05)
[2017-04-04] MEDS: CYANOCOBALAMIN 500 MCG TAB (VIT B-12) PO SCH (08:05)
[2017-04-04] MEDS: CHOLECALCIFEROL 1000 INTER.UNIT TAB PO SCH (08:05)
[2017-04-04 08:26] LABS: BASO % 0.1 %; BASO ABS # 0.01 K/uL (0-0.2); COMPLETE YES; EOS % 0.9 %; IG% 0.4 %; LYMPH % 16.7 %; LYMPH ABS # 1.42 K/uL (1.2-3.4); MEAN CELL VOLUME 82.9 fL (80-100); MEAN CORPUSCULAR HEMOGLOBIN 27.7 pg (25-34); MEAN CORPUSCULAR HGB CONC 33.5 g/dl (32-36); MEAN PLATELET VOLUME 10.2 fL (7.4-10.4); MONO % 5.9 %; PLATELET COUNT 265 K/uL (130-400); RED BLOOD COUNT 5.55 M/uL (4.2-5.4); WHITE BLOOD COUNT 8.52 K/uL (4.8-10.8)
[2017-04-04 08:58] LABS: BUN/CREATININE RATIO 14.5 (10-20); CALCIUM 9.7 mg/dl (8.5-10.1); CREATININE 0.87 mg/dl (0.60-1.20); MAGNESIUM 2.4 mg/dl (1.8-2.4); POTASSIUM 3.9 mmol/L (3.5-5.1)
--- NOTE | 2017-04-04 10:32 | Infectious Disease Progress Nt ---
Progress Note Date of Service Apr 04, 2017. Subjective Pt evaluation today including: conversation w/ patient, physical exam, chart review, lab review, review of studies, conversation w/ talent consultant, review of inpatient medication list Patient offering no new complaints today. Left leg pain improved. No fever chills. Tolerating antibiotics without apparent difficulty. All Other Systems: Reviewed and Negative Medications Current Inpatient Medications Medications (Trade) Dose Ordered Sig/Giovani Route Start Time Stop Time Status Last Admin Dose Admin Ceftriaxone Sodium 1 gm/ Dextrose 50 ml @ 100 mls/hr Q24H IV 04/02/17 19:00 04/12/17 18:59 04/03/17 18:45 100 MLS/HR Acetaminophen (Tylenol Tab) 650 mg Q4H PRN PO 04/02/17 20:00 05/02/17 19:59 Amlodipine Besylate (Norvasc Tab) 5 mg DAILY PO 04/03/17 09:00 05/03/17 08:59 04/04/17 08:05 5 MG Cyanocobalamin (Vitamin B-12 Tab) 1,000 mcg DAILY PO 04/03/17 09:00 05/03/17 08:59 04/04/17 08:05 1,000 MCG Ferrous Sulfate (Feosol Tab) 325 mg DAILY PO 04/03/17 09:00 05/03/17 08:59 04/04/17 08:04 325 MG Furosemide (Lasix Tab) 20 mg DAILY PO 04/03/17 09:00 05/03/17 08:59 04/04/17 08:04 20 MG Potassium Chloride (Klor-Con M10) 10 meq BID PO 04/02/17 21:00 05/02/17 20:59 04/04/17 08:04 10 MEQ Cholecalciferol (Vitamin D Tab) 5,000 inter.unit QAM PO 04/03/17 09:00 05/03/17 08:59 04/04/17 08:05 5,000 INTER.UNIT Ondansetron HCl (Zofran Inj) 4 mg Q6H PRN IV 04/02/17 20:00 05/02/17 19:59 Vancomycin HCl (Consult) 1 ea UD PRN N/A 04/02/17 21:30 05/02/17 21:29 Vancomycin HCl 1250 mg/Sodium Chloride 275 ml @ 125 mls/hr Q18H IV 04/03/17 14:00 04/12/17 20:59 04/04/17 08:03 125 MLS/HR Atorvastatin Calcium (Lipitor Tab) 10 mg QAM PO 04/03/17 09:00 05/02/17 20:59 04/04/17 08:04 10 MG Lactobacillus Acidophilus (Lactinex Granules Pack) 1 gm TIDM PO 04/04/17 08:00 05/04/17 07:59 04/04/17 08:03 1 GM Objective Vital Signs Date Time Temp Pulse Resp B/P (MAP) Pulse Ox O2 Delivery O2 Flow Rate FiO2 04/04/17 09:57 Room Air 04/04/17 07:33 36.4 88 18 145/91 (109) 95 Room Air 04/04/17 00:15 Room Air 04/03/17 23:42 36.9 80 20 148/87 (107) 92 Room Air 04/03/17 16:03 93 Room Air 04/03/17 15:04 36.7 80 18 147/81 (103) 93 Room Air Physical Exam General Appearance: WD/WN, no apparent distress Eyes: normal inspection, EOMI, sclerae normal ENT: normal ENT inspection, pharynx normal Neck: supple, no adenopathy, trachea midline Respiratory/Chest: chest non-tender, lungs clear, normal breath sounds, no respiratory distress Cardiovascular: regular rate, rhythm, no gallop, no murmur Abdomen: normal bowel sounds, non tender, soft, no organomegaly Extremities: normal range of motion, non-tender, + inflammation (Left leg) Neurologic/Psychiatric: alert, oriented x 3 Skin: normal color, no rash, + pertinent finding (Improving left lower extremity cellulitis) Lymphatic: no adenopathy Laboratory Results Last 24 Hours Test 04/04/17 08:00 White Blood Count 8.52 K/uL Red Blood Count 5.55 M/uL Hemoglobin 15.4 g/dL Hematocrit 46.0 % Mean Corpuscular Volume 82.9 fL Mean Corpuscular Hemoglobin 27.7 pg Mean Corpuscular Hemoglobin Concent 33.5 g/dl Platelet Count 265 K/uL Mean Platelet Volume 10.2 fL Neutrophils (%) (Auto) 76.0 % Lymphocytes (%) (Auto) 16.7 % Monocytes (%) (Auto) 5.9 % Eosinophils (%) (Auto) 0.9 % Basophils (%) (Auto) 0.1 % Neutrophils # (Auto) 6.48 K/uL Lymphocytes # (Auto) 1.42 K/uL Monocytes # (Auto) 0.50 K/uL Eosinophils # (Auto) 0.08 K/uL Basophils # (Auto) 0.01 K/uL RDW Standard Deviation 47.1 fL RDW Coefficient of Variation 15.5 % Immature Granulocyte % (Auto) 0.4 % Immature Granulocyte # (Auto) 0.03 K/uL Sodium Level 141 mmol/L Potassium Level 3.9 mmol/L Chloride Level 107 mmol/L Carbon Dioxide Level 27 mmol/L Anion Gap 7.0 mmol/L Blood Urea Nitrogen 13 mg/dl Creatinine 0.87 mg/dl Est Creatinine Clear Calc Drug Dose 44.6 ml/min Estimated GFR () 70.9 Estimated GFR (Non- 61.2 BUN/Creatinine Ratio 14.5 Random Glucose 93 mg/dl Calcium Level 9.7 mg/dl Magnesium Level 2.4 mg/dl Assessment and Plan left lower extremity cellulitis, likely a Staph aureus, with what appears to be good response to current IV antibiotics. Will continue antibiotics IV through today, then hopefully transition to oral antibiotics tomorrow. We will continue to follow.
--- NOTE | 2017-04-04 12:11 | Clinical Documentation Query ---
VINAY Blair : CLINICAL DOCUMENTATION QUERY Documentation includes CHF, not otherwise specified. Last echocardiogram available to this reader (02/21/13) demonstrated normal biventricular systolic function. Patient is being treated with Lasix and Norvasc. In your clinical opinion is this patient being managed for: ( ) Chronic diastolic/preserved EF congestive heart failure ( ) Other explanation of clinical findings (Please Explain) ( ) Unable to determine (Please Define) ( ) Need to Discuss ( ) Not Agree The medical record reflects the following clinical findings, treatment, and risk factors. Clinical Indicators: As above Treatment:Lasix, Norvasc Risk Factors: Age, hypertension Please clarify and document your clinical opinion in the progress notes and discharge summary. Terms such as "probable", "suspected", "likely", "questionable", "possible", or "still to be ruled out" are acceptable. IF IN AGREEMENT, YOU MUST DOCUMENT ABOVE DIAGNOSTIC STATEMENT IN DAILY PROGRESS NOTES AND DISCHARGE SUMMARY. This document is not part of the patient's record. Thank You, Viktor Smyth, RN [phone]
[2017-04-04 14:47] VITALS: BP 133/78; PULSE 96; TEMP 36.7; O2SAT 93
[2017-04-04 16:01] VITALS: O2SAT 93
--- NOTE | 2017-04-04 20:42 | Progress Note ---
Subjective Date of Service: Apr 04, 2017. Subjective Pt evaluation today including: conversation w/ patient, conversation w/ family (son, daughter - at bedside), physical exam, chart review, lab review, review of studies (reviewed inpatient records & outpatient records from [facility]), review of inpatient medication list Pain: denies PO Intake: normal Voiding: no voiding problems no issues overnight states "I think I am going home tomorrow" was seen by wound care and left leg ulcer was dressed Problem List Medical Problems: (1) Contusion of left leg Status: Acute Review of Systems Constitutional: No fever Respiratory: No shortness of breath Cardiac: + edema, No chest pain Abdomen: No pain, No diarrhea Objective Vital Signs Date Time Temp Pulse Resp B/P (MAP) Pulse Ox O2 Delivery O2 Flow Rate FiO2 04/04/17 16:01 93 Room Air 04/04/17 14:47 36.7 96 18 133/78 (96) 93 Room Air 04/04/17 09:57 Room Air 04/04/17 07:33 36.4 88 18 145/91 (109) 95 Room Air 04/04/17 00:15 Room Air 04/03/17 23:42 36.9 80 20 148/87 (107) 92 Room Air Physical Exam General Appearance: no apparent distress ENT: pharynx normal Neck: no JVD Respiratory/Chest: lungs clear, no respiratory distress, no accessory muscle use Cardiovascular: regular rate, rhythm, no gallop, no murmur Abdomen: normal bowel sounds, non tender, soft, no organomegaly Extremities: + pedal edema (L>R leg), + swelling (2+ on left, 1+ on right) Skin: + pertinent finding (venous stasis changes b/l shins; left leg ulceration dressed - this was not removed; demarkation lines superior and inferior edges noted; erythema is NOT near the demarkation lines) Laboratory Results Last 24 Hours Test 04/04/17 08:00 White Blood Count 8.52 K/uL Red Blood Count 5.55 M/uL Hemoglobin 15.4 g/dL Hematocrit 46.0 % Mean Corpuscular Volume 82.9 fL Mean Corpuscular Hemoglobin 27.7 pg Mean Corpuscular Hemoglobin Concent 33.5 g/dl Platelet Count 265 K/uL Mean Platelet Volume 10.2 fL Neutrophils (%) (Auto) 76.0 % Lymphocytes (%) (Auto) 16.7 % Monocytes (%) (Auto) 5.9 % Eosinophils (%) (Auto) 0.9 % Basophils (%) (Auto) 0.1 % Neutrophils # (Auto) 6.48 K/uL Lymphocytes # (Auto) 1.42 K/uL Monocytes # (Auto) 0.50 K/uL Eosinophils # (Auto) 0.08 K/uL Basophils # (Auto) 0.01 K/uL RDW Standard Deviation 47.1 fL RDW Coefficient of Variation 15.5 % Immature Granulocyte % (Auto) 0.4 % Immature Granulocyte # (Auto) 0.03 K/uL Sodium Level 141 mmol/L Potassium Level 3.9 mmol/L Chloride Level 107 mmol/L Carbon Dioxide Level 27 mmol/L Anion Gap 7.0 mmol/L Blood Urea Nitrogen 13 mg/dl Creatinine 0.87 mg/dl Est Creatinine Clear Calc Drug Dose 44.6 ml/min Estimated GFR () 70.9 Estimated GFR (Non- 61.2 BUN/Creatinine Ratio 14.5 Random Glucose 93 mg/dl Calcium Level 9.7 mg/dl Magnesium Level 2.4 mg/dl Assessment and Plan 86yo female with: 1. LLE venous stasis ulcer/traumatic ulcer with superimposed cellulitis - by history is improving. All cultures grew walters-sensitive staph aureus. ID feels can transition to PO antibiotics in am and likely d/c home. Appreciate ID and wound care consultations. Will need wound care center f/u in 1 week. 2. HTN - controlled. 3. ? h/o CHF - inpatient and outpatient records reviewed. Outpatient record makes no mention of CHF. Inpatient record refers to 2013 hospital stay suggesting possible acute CHF but this was not proven. ECHO 2013 was normal; no mention of diastolic dysfunction on that echo. Has no CHF symptoms by history. Will give reassurance to patient & her family there is no evidence of CHF. 4. chronic venous insufficiency - lasix, really needs compression moving forward. 5. DVT proph - add lovenox 40mg daily. 6. CKD stage 3 - creatinine at baseline. Family updated. Anticipate d/c tomorrow. Continued [facility] stay due to: multiple IV medications needed Discharge planning: home
[2017-04-04] MEDS ORDERED: ENOXAPARIN 40 MG/0.4 ML SYR SQ STA (20:45)
[2017-04-04] MEDS: CEFTRIAXONE SOD INJ 1 GM in DEXTROSE 5% ADD-VANTAGE 50ML 50 ML IV SCH (20:46)
[2017-04-04 21:56] LABS: CREATININE 0.91 mg/dl (0.60-1.20)
[2017-04-04 22:22] LABS: INR 0.9 (0.9-1.1); PROTHROMBIN TIME (PATIENT) 10.1 SECONDS (9.0-12.0)
[2017-04-04 22:42] VITALS: BP 131/83; PULSE 84; TEMP 36.6; O2SAT 91
[2017-04-05] MEDS ORDERED: VANCOMYCIN TROUGH SCH (01:30)
[2017-04-05] MEDS: VANCOMYCIN INJ 1,250 MG in SODIUM CHLORIDE 0.9% 250ML 250 ML IV SCH (02:10)
[2017-04-05 07:18] VITALS: BP 145/81; PULSE 90; TEMP 36.6; O2SAT 93
[2017-04-05 07:57] LABS: BASO % 0.1 %; BASO ABS # 0.01 K/uL (0-0.2); COMPLETE YES; EOS % 0.7 %; HEMATOCRIT 44.4 % (37-47); IG% 0.2 %; LYMPH % 13.9 %; LYMPH ABS # 1.22 K/uL (1.2-3.4); MEAN CELL VOLUME 83.3 fL (80-100); MEAN CORPUSCULAR HEMOGLOBIN 25.9 pg (25-34); MEAN CORPUSCULAR HGB CONC 31.1 g/dl (32-36); MEAN PLATELET VOLUME 9.3 fL (7.4-10.4); MONO % 5.6 %; NEUT % 79.5 %; PLATELET COUNT 296 K/uL (130-400); RED BLOOD COUNT 5.33 M/uL (4.2-5.4); WHITE BLOOD COUNT 8.76 K/uL (4.8-10.8)
[2017-04-05 08:28] LABS: BUN/CREATININE RATIO 21.7 (10-20); CALCIUM 9.2 mg/dl (8.5-10.1); CREATININE 0.88 mg/dl (0.60-1.20); MAGNESIUM 2.1 mg/dl (1.8-2.4); POTASSIUM 3.6 mmol/L (3.5-5.1)
[2017-04-05] MEDS: FERROUS SULFATE 325 MG TAB PO SCH (08:40)
[2017-04-05] MEDS: LACTOBACILLUS ACIDOPHILUS 1 GM PACK PO SCH ×3 (08:40→17:00)
[2017-04-05] MEDS: POTASSIUM CHLORIDE 10 MEQ TABCR PO SCH (08:40)
[2017-04-05] MEDS: AMLODIPINE BESYLATE 5 MG TAB PO SCH (08:41)
[2017-04-05] MEDS: CHOLECALCIFEROL 1000 INTER.UNIT TAB PO SCH (08:41)
[2017-04-05] MEDS: FUROSEMIDE 20 MG TAB PO SCH (08:41)
[2017-04-05] MEDS: CYANOCOBALAMIN 500 MCG TAB (VIT B-12) PO SCH (08:41)
[2017-04-05] MEDS: ATORVASTATIN 10 MG TAB PO SCH (08:41)
--- NOTE | 2017-04-05 08:49 | Pharmacy Progress Note ---
Pharmacy Abx Dose Short Note Date of Service Apr 05, 2017. Assessment & Plan Assessment 86 year old female receiving IV Vancomycin/IV Ceftriaxone for treatment of left lower extremity cellulitis. Patient symptomatically improving and note that change to oral antibiotics and discharge to home may be imminent today. Patient had worsening pain and swelling despite being prescribed keflex PO on . Left leg culture from 03/28 grew MSSA Day # 12/11 of antimicrobial therapy. Plan Vancomycin * Trough level of 15.1 mcg/mL is therapeutic. * Continue dose of Vancomycin 1250 mg IV every 18 hours * Goal trough level for cellulitis (VIJAY Vanc = 2): 15 to 20 mcg/mL * No further levels planned Pharmacy will continue to follow and will adjust dose/frequency as necessary. Thank you.
--- NOTE | 2017-04-05 11:43 | Infectious Disease Progress Nt ---
Progress Note Date of Service Apr 05, 2017. Subjective Pt evaluation today including: conversation w/ patient, physical exam, chart review, lab review, review of studies, conversation w/ event management consultant, review of inpatient medication list Offers no new complaints. Remains afebrile. Leg improving. All Other Systems: Reviewed and Negative Medications Current Inpatient Medications Medications (Trade) Dose Ordered Sig/Giovani Route Start Time Stop Time Status Last Admin Dose Admin Ceftriaxone Sodium 1 gm/ Dextrose 50 ml @ 100 mls/hr Q24H IV 04/02/17 19:00 04/12/17 18:59 04/04/17 20:46 100 MLS/HR Acetaminophen (Tylenol Tab) 650 mg Q4H PRN PO 04/02/17 20:00 05/02/17 19:59 Amlodipine Besylate (Norvasc Tab) 5 mg DAILY PO 04/03/17 09:00 05/03/17 08:59 04/05/17 08:41 5 MG Cyanocobalamin (Vitamin B-12 Tab) 1,000 mcg DAILY PO 04/03/17 09:00 05/03/17 08:59 04/05/17 08:41 1,000 MCG Ferrous Sulfate (Feosol Tab) 325 mg DAILY PO 04/03/17 09:00 05/03/17 08:59 04/05/17 08:40 325 MG Furosemide (Lasix Tab) 20 mg DAILY PO 04/03/17 09:00 05/03/17 08:59 04/05/17 08:41 20 MG Potassium Chloride (Klor-Con M10) 10 meq BID PO 04/02/17 21:00 05/02/17 20:59 04/05/17 08:40 10 MEQ Cholecalciferol (Vitamin D Tab) 5,000 inter.unit QAM PO 04/03/17 09:00 05/03/17 08:59 04/05/17 08:41 5,000 INTER.UNIT Ondansetron HCl (Zofran Inj) 4 mg Q6H PRN IV 04/02/17 20:00 05/02/17 19:59 Vancomycin HCl (Consult) 1 ea UD PRN N/A 04/02/17 21:30 05/02/17 21:29 Vancomycin HCl 1250 mg/Sodium Chloride 275 ml @ 125 mls/hr Q18H IV 04/03/17 14:00 04/12/17 20:59 04/05/17 02:10 125 MLS/HR Atorvastatin Calcium (Lipitor Tab) 10 mg QAM PO 04/03/17 09:00 05/02/17 20:59 04/05/17 08:41 10 MG Lactobacillus Acidophilus (Lactinex Granules Pack) 1 gm TIDM PO 04/04/17 08:00 05/04/17 07:59 04/05/17 08:40 1 GM Enoxaparin Sodium (Lovenox Inj) 40 mg DAILY@2100 SQ 04/05/17 21:00 05/05/17 20:59 Objective Vital Signs Date Time Temp Pulse Resp B/P (MAP) Pulse Ox O2 Delivery O2 Flow Rate FiO2 04/05/17 07:18 36.6 90 17 145/81 (102) 93 Room Air 04/05/17 00:00 Room Air 04/04/17 22:42 36.6 84 18 131/83 (99) 91 Room Air 04/04/17 16:01 93 Room Air 04/04/17 14:47 36.7 96 18 133/78 (96) 93 Room Air Physical Exam General Appearance: WD/WN, no apparent distress Eyes: normal inspection, sclerae normal ENT: normal ENT inspection, pharynx normal Neck: supple, no adenopathy, trachea midline Respiratory/Chest: lungs clear, normal breath sounds, no respiratory distress Cardiovascular: regular rate, rhythm, no gallop, no murmur Abdomen: normal bowel sounds, non tender, soft, no organomegaly Extremities: no calf tenderness, + swelling Neurologic/Psychiatric: alert Skin: normal color, no rash, + pertinent finding (improving cellulitis) Lymphatic: no adenopathy Laboratory Results Last 24 Hours Test 04/04/17 20:55 04/04/17 21:38 04/05/17 01:28 04/05/17 07:39 Creatinine 0.91 mg/dl 0.88 mg/dl Est Creatinine Clear Calc Drug Dose 42.7 ml/min 44.1 ml/min Estimated GFR () 67.1 69.9 Estimated GFR (Non- 57.9 60.3 Prothrombin Time 10.1 SECONDS Prothromb Time International Ratio 0.9 Vancomycin Level Trough 15.2 mcg/ml White Blood Count 8.76 K/uL Red Blood Count 5.33 M/uL Hemoglobin 13.8 g/dL Hematocrit 44.4 % Mean Corpuscular Volume 83.3 fL Mean Corpuscular Hemoglobin 25.9 pg Mean Corpuscular Hemoglobin Concent 31.1 g/dl Platelet Count 296 K/uL Mean Platelet Volume 9.3 fL Neutrophils (%) (Auto) 79.5 % Lymphocytes (%) (Auto) 13.9 % Monocytes (%) (Auto) 5.6 % Eosinophils (%) (Auto) 0.7 % Basophils (%) (Auto) 0.1 % Neutrophils # (Auto) 6.96 K/uL Lymphocytes # (Auto) 1.22 K/uL Monocytes # (Auto) 0.49 K/uL Eosinophils # (Auto) 0.06 K/uL Basophils # (Auto) 0.01 K/uL RDW Standard Deviation 47.3 fL RDW Coefficient of Variation 15.5 % Immature Granulocyte % (Auto) 0.2 % Immature Granulocyte # (Auto) 0.02 K/uL Sodium Level 141 mmol/L Potassium Level 3.6 mmol/L Chloride Level 106 mmol/L Carbon Dioxide Level 27 mmol/L Anion Gap 8.0 mmol/L Blood Urea Nitrogen 19 mg/dl BUN/Creatinine Ratio 21.7 Random Glucose 114 mg/dl Calcium Level 9.2 mg/dl Magnesium Level 2.1 mg/dl Assessment and Plan left lower extremity cellulitis, likely a Staph aureus, with what appears to be good response to current IV antibiotics. Will transition to oral Rx with Bactrim and cephalexin for 10 more days.
[2017-04-05 15:04] VITALS: BP 145/81; PULSE 90; TEMP 36.6; O2SAT 93
[2017-04-05] MEDS ORDERED: CEPH500C2 PO (16:33)
[2017-04-05] MEDS ORDERED: SULF800T23 PO (16:33)
[2017-04-05] MEDS ORDERED: LACTCHW3 PO (16:33)
--- NOTE | 2017-04-05 16:44 | Discharge Instructions ---
Discharge Instructions Date of Service Apr 05, 2017. Admission Reason for Admission: Left Leg Cellulitis and Ulcer Discharge Discharge Diagnosis / Problem: left leg ulcer with cellulitis (skin infection) - much improved Discharge Goals Goal(s): Learn about illness, Diagnostic testing, Therapeutic intervention Activity Recommendations Activity Limitations: resume your previous activity Bathing - you may shower at this time but keep the dressing on the leg covered with a plastic bag, etc during the shower. Do not take a tub bath or submerge the leg until given the OK by the wound care clinic. . Instructions / Follow-Up Instructions / Follow-Up From Dr. Aquino - 1. Antibiotics for your left leg infection - * start the following antibiotics on 04/06/17, in the morning * both antibiotics have been called to your pharmacy ([facility], [facility]) * bactrim (sulfa drug) 1 tablet twice daily for 10 days * cephalexin (keflex) 500mg three times daily for 10 days * you can use your current cephalexin supply (you have about 6.5 days left in the bottle) and when that runs out you have an additional 4 days that I have called to the [facility] for you * I have also called to [facility] "lactinex"; this is a probiotic to help prevent diarrhea from the antibiotics; take these for 10 days 2. A home health nurse will come to your home daily to help change the dressings on the left leg. 3. Try to keep your left leg elevated when you are at home resting to help with swelling. In the future we will recommend compression stockings for you to prevent chronic swelling and reduce the chances of additional infections. 4. All of your other chronic medications are the same including your blood pressure medication, diuretic, etc. 5. As discussed I have reviewed all of your inpatient and outpatient records. You do NOT have a diagnosis of congestive heart failure at this time. 6. Return to [facility] if - * you develop fever greater than 100.5 degrees * you notice worsening redness, swelling, pain, or drainage from the left leg 7. Appointments have been made for you for next week for the wound care clinic , Dr. Mendez (infectious disease), and your primary care doctor/family doctor ( see separate appointment information). Current Hospital Diet Patient's current hospital diet: Regular Diet Discharge Diet Recommended Diet: AHA Diet (Heart Healthy) Pending Studies Studies pending at discharge: no Laboratory Results Lipid Panel Test 6/5/17 10:22 Range/Units Triglycerides Level 183 H 0-150 mg/dl Cholesterol Level 164 0-200 mg/dl HDL Cholesterol 62 mg/dl Cholesterol/HDL Ratio 2.6 LDL Cholesterol, Calculated 65 mg/dl Medical Emergencies . Who to Call and When: Medical Emergencies: If at any time you feel your situation is an emergency, please call 911 immediately. . Non-Emergent Contact Non-Emergency issues call your: Primary Care Provider Call Non-Emergent contact if: temperature is above 100.5, wound has increased drainage, wound has increased redness, wound has increased pain, you have any medication questions . . "Provider Documentation" section prepared by Rigo Aquino. . VTE Core Measure Inpt VTE Proph given/why not?: Treatment not indicated
[2017-04-05] MEDS ORDERED: ENOXAPARIN 40 MG/0.4 ML SYR SQ SCH (21:00)
--- NOTE | 2017-04-10 22:01 | Discharge Summary ---
Discharge Summary Date of Service Apr 10, 2017. Discharge Summary Admission Date: Apr 02, 2017 at 19:55 Discharge Date: Apr 05, 2017 Discharge Disposition: Home with services Principal Diagnosis: left leg ulcer with superimposed infection & cellulitis - 2nd staph aureus Problems/Secondary Diagnoses: 1. chronic venous insufficiency 2. HTN 3. 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 Bilateral knee osteoarthritis 6. Hyperlipidemia Immunizations: Have You Had Influenza Vaccine: Yes History of Tetanus Vaccine?: Yes History of Pneumococcal: Yes History of Hepatitis B Vaccine: No Consultations: wound care nurse & provider infectious disease - Dr. Bony Mendez Medication Reconciliation New Medications: Lactobacillus (Lactinex) Chw 3 TAB PO TID for 10 Days, #90 CHW 0 Refills Sulfa/Trimethoprim (Bactrim Ds 800MG/160MG) Tab 1 TAB PO BID, #20 TAB 0 Refills Continued Medications: Acetaminophen (Tylenol Arthritis Ext Rel) 650 Mg Cplt 650 MG PO Q8H, CAP Alpha-Lipoic Acid (Thioctic Ac (Alpha-Lipoic Acid) 200 Mg Cap 600 MG PO DAILY Amlodipine (Norvasc) 5 Mg Tab 5 MG PO DAILY, TAB Atorvastatin (Lipitor) 10 Mg Tab 10 MG PO HS, TAB Cephalexin Monohydrate (Keflex) 500 Mg Cap 500 MG PO TID, #12 CAP 0 Refills (This prescription has been renewed) Cholecalciferol (Vitamin D3) 5,000 Unit Cap 1 CAP PO DAILY Cyanocobalamin (Vitamin B-12) 500 Mcg Tab 1000 MCG PO DAILY, TAB Ferrous Sulfate (Ferrous Sulfate) 325 Mg Tab 325 MG PO DAILY Furosemide (Lasix) 20 Mg Tab 20 MG PO DAILY, TAB Krill Oil (Krill Oil [place]-3) 1 Cap Cap 1 CAP PO DAILY Multiple Vitamins W/ Minerals (Preservision/Lutein) 1 Cap Cap 1 CAPSULE PO BID Multivitamins/Minerals (Mvi With Minerals) Tab 1 TAB PO DAILY, TAB Potassium Chloride (Micro-K Ext Rel) 10 Meq Capcr 10 MEQ PO BID, CAP Referrals At Discharge Follow up Referrals: Infectious Disease - 04/11/17 with Bony Mendez MD Physician Referral - 04/10/17 with Junito De, DO Discharge Exam Physical Exam: General Appearance: no apparent distress ENT: pharynx normal Neck: no JVD Respiratory/Chest: lungs clear, no respiratory distress, no accessory muscle use Cardiovascular: regular rate, rhythm, no gallop, no murmur, normal peripheral pulses Abdomen / GI: normal bowel sounds, non tender, soft, no organomegaly Extremities: + pedal edema (2+ on left, 1+ on right ), + swelling Neurologic/Psychiatric: alert Skin: + pertinent finding (left leg agarwal ulcer relatively clean; resolving cellulitis surrounding the ulcer, venous stasis changes b/l shins) Hospital Course HISTORY OF PRESENT ILLNESS: The patient is a 86-year-old female who was referred from the wound care center for worsening left lower extremity cellulitis despite being on Keflex since March 28. Her wound culture from an ulcer of the left leg grew pansensitive staph aureus. She had been treated with Aquacel AG dressing. 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 The symptoms initially began after she ran into a table approximately 2 weeks ago and sustained a wound to her left anterior agarwal. HOSPITAL COURSE: The patient's LLE venous stasis ulcer/traumatic ulcer with superimposed cellulitis improved during her stay with IV antibiotic therapy. Multiple wound cultures from the outpatient clinic all grew walters-sensitive staph aureus. She was seen by Dr. Bony Mendez, infectious disease, and he recommended a course of keflex with bactrim after discharge. She was also seen in consult by the wound care team who provided local wound care and dressings. She was set up with home health to assist with daily dressing changes and will continue to see Dr. Junito De in the [facility]. All other medical problems remained stable while hospitalized. She remained afebrile with stable vitals. Lastly, although her [place] health record suggests a history of CHF, she does NOT have clinical CHF. I reviewed all of her inpatient & outpatient records and in 2012 there was some concern about possible diastolic CHF but this was ruled out at that time. I reassured the patient and her family that her chronic venous insufficiency is not synonymous with CHF. I did recommend she ultimately get fitted for compression stockings for her chronic lower extremity edema once her infection has resolved. Total Time Spent: Greater than 30 minutes This includes examination of the patient, discharge planning, medication reconciliation, and communication with other providers. Discharge Instructions Please refer to the electronic Patient Visit Report (Discharge Instructions) for additional information. Follow-Up 1. Wound Care - Dr De -Sunday 8th - 830am 2. PCP - Lin Turcios PA-C Sunday 9 - 11am 3. Infectious Disease - Dr Mendez - Sunday 16 - 115pm Additional Copies To Bony Mendez MD; Josiah Goldstein M.D.; Lin Turcios,P.A.; Junito De, DO
--- NOTE | 2017-04-11 07:57 | Wound Progress Note: Inpatient ---
Wound Progress Note Date of Service Apr 04, 2017. Subjective Patient was seen today for further evaluation following admission to the hospital for cellulitis secondary to a traumatic wound of the left lower extremity. Patient today denies any significant pain swelling or redness at site. Patient denies any fever chills. Patient denies any other systemic complaints. Objective Physical Exam Notes: Patient currently lying in a hospital bed in no acute distress alert and cooperative throughout the examination. Patients vital signs were reviewed and found to be unremarkable patient is afebrile. The wound site today measures 3 x 3 x 0.1 cm on the left lower extremity. There is central slough and surrounding eschar noted. There is no active drainage or odor no periwound erythema noted. Assessment and Plan Assessment: Traumatic wound left lower extremity Plan: At this time the site did require debridement with patient's permission and after the application of topical Xylocaine 4% site was debridement with a # 5 curette central slough eschar and some subcutaneous tissue was removed minimal bleeding occurred which was controlled direct pressure site will be dressed with Aquacel Ag and gauze changed daily basis patient will continue to be monitored during her hospitalization and followed up in the outpatient clinic. This represented an excisional debridement of less than 20 cm.
== END 2017-04-05 17:45 | disposition home health service (06) | DRG 580 ==
LOC: C.MS2W 16:36 → UNDOADMIN 16:36 → C.MS2W 19:55
PROVIDERS: ADMIT Hospitalist; ATTEND Internal Medicine
PROC: 0JBP3ZZ Excision of Left Lower Leg Subcutaneous Tissue and Fascia, Percutaneous Approach (ICD-10-PCS; principal; 2017-04-02)
DX: L03.116 Cellulitis of left lower limb (principal); L97.329 Non-pressure chronic ulcer of left ankle with unspecified severity; Z85.828 Personal history of other malignant neoplasm of skin; M17.0 Bilateral primary osteoarthritis of knee; I12.9 Hypertensive chronic kidney disease with stage 1 through stage 4 chronic kidney disease, or unspecified chronic kidney disease; N18.3 Chronic kidney disease, stage 3 (moderate); E53.8 Deficiency of other specified B group vitamins; E78.5 Hyperlipidemia, unspecified; I87.2 Venous insufficiency (chronic) (peripheral); Z91.041 Radiographic dye allergy status; Z79.899 Other long term (current) drug therapy; S81.802A Unspecified open wound, left lower leg, initial encounter; X58.XXXA Exposure to other specified factors, initial encounter; Y84.8 Other medical procedures as the cause of abnormal reaction of the patient, or of later complication, without mention of misadventure at the time of the procedure; C44.729 Squamous cell carcinoma of skin of left lower limb, including hip; R60.9 Edema, unspecified; Z87.891 Personal history of nicotine dependence; R23.8 Other skin changes; M71.22 Synovial cyst of popliteal space [Baker], left knee; S80.12XA Contusion of left lower leg, initial encounter; N18.9 Chronic kidney disease, unspecified; Z86.19 Personal history of other infectious and parasitic diseases; Z91.09 Other allergy status, other than to drugs and biological substances

== ENCOUNTER → 2017-07-31 | Outpatient (CLI) | payer OTHER, BC ==
[~2017-07-31] MED LIST changes: +ATOR10TA82 PO; -ATOR10TA88 PO; -CEPH500C2 PO; +LACTCHW3 PO
[2017-07-31 16:57] LABS: BASO % 0.1 %; BASO ABS # 0.01 K/uL (0-0.2); COMPLETE YES; EOS % 0.2 %; HEMATOCRIT 36.8 % (37-47); IG% 0.3 %; LYMPH % 10.7 %; LYMPH ABS # 1.19 K/uL (1.2-3.4); MEAN CELL VOLUME 81.8 fL (80-100); MEAN CORPUSCULAR HEMOGLOBIN 25.8 pg (25-34); MEAN CORPUSCULAR HGB CONC 31.5 g/dl (32-36); MEAN PLATELET VOLUME 9.6 fL (7.4-10.4); MONO % 5.6 %; NEUT % 83.1 %; PLATELET COUNT 344 K/uL (130-400); WHITE BLOOD COUNT 11.09 K/uL (4.8-10.8)
[2017-07-31 17:05] LABS: BLOOD UREA NITROGEN 17 mg/dl (7-18); BUN/CREATININE RATIO 21.8 (10-20); CALCIUM 9.5 mg/dl (8.5-10.1); CARBON DIOXIDE 28 mmol/L (21-32); CHLORIDE 106 mmol/L (98-107); CREATININE 0.79 mg/dl (0.60-1.20); GLUCOSE 102 mg/dl (70-99); POTASSIUM 3.6 mmol/L (3.5-5.1); SODIUM 141 mmol/L (136-145)
[2017-07-31 17:16] LABS: THYROID STIMULATING HORMONE 0.939 uIu/ml (0.300-4.500)
== END | disposition home or self-care (01) ==
LOC: C.LABBC 14:56
PROVIDERS: ATTEND Internal Medicine Geriatric Medicine
DX: I10 Essential (primary) hypertension (principal); E21.3 Hyperparathyroidism, unspecified; D64.9 Anemia, unspecified

== ENCOUNTER → 2017-11-22 | Outpatient (CLI) | payer OTHER, BC ==
--- NOTE | 2017-11-22 14:51 | DIAGNOSTIC IMAGING REPORT ---
L FOOT MIN 3 VIEWS ROUTINE CLINICAL HISTORY: 86 years-old Female presenting with M79.673 Foot [id number]. TECHNIQUE: Frontal, oblique, and lateral views of the left foot were obtained. COMPARISON: 11/16/2015. FINDINGS: Severe osteopenia. This limits evaluation for nondisplaced fracture. Allowing for this, no displaced fracture. No advanced degenerative change. No malalignment. Prominent enthesophyte at the origin of the plantar fascia. Mild diffuse subcutaneous edema suggested. IMPRESSION: 1. Severe osteopenia limits evaluation for nondisplaced fracture. Allowing for this, no acute osseous injury. 2. Enthesophyte at the origin of the plantar fascia. Electronically signed by: Joni Linares M.D. 11/22/2017 2:49 PM Dictated Date/Time: 11/22/2017 2:48 PM
[2017-11-22 17:16] LABS: BASO % 0.1 %; BASO ABS # 0.01 K/uL (0-0.2); EOS % 0.3 %; EOS ABS # 0.03 K/uL (0-0.5); HEMATOCRIT 40.2 % (37-47); HEMOGLOBIN 13.2 g/dL (12.0-16.0); IG# 0.04 K/uL (0.00-0.02); LYMPH % 12.8 %; LYMPH ABS # 1.36 K/uL (1.2-3.4); MEAN CELL VOLUME 79.9 fL (80-100); MEAN CORPUSCULAR HEMOGLOBIN 26.2 pg (25-34); MEAN CORPUSCULAR HGB CONC 32.8 g/dl (32-36); MEAN PLATELET VOLUME 10.3 fL (7.4-10.4); MONO % 5.6 %; MONO ABS # 0.59 K/uL (0.11-0.59); NEUT % 80.8 %; PLATELET COUNT 278 K/uL (130-400); RED CELL DISTRIBUTION WIDTH CV 17.4 % (11.5-14.5); RED CELL DISTRIBUTION WIDTH SD 50.5 fL (36.4-46.3); WHITE BLOOD COUNT 10.63 K/uL (4.8-10.8)
[2017-11-22 17:28] LABS: BLOOD UREA NITROGEN 23 mg/dl (7-18); CALCIUM 9.1 mg/dl (8.5-10.1); CARBON DIOXIDE 27 mmol/L (21-32); CREATININE 0.82 mg/dl (0.60-1.20); GLUCOSE 89 mg/dl (70-99); POTASSIUM 3.8 mmol/L (3.5-5.1); SODIUM 140 mmol/L (136-145)
== END | disposition home or self-care (01) ==
LOC: C.RADBC 14:18
PROVIDERS: ATTEND Internal Medicine Geriatric Medicine
DX: M79.673 Pain in unspecified foot (principal); I12.9 Hypertensive chronic kidney disease with stage 1 through stage 4 chronic kidney disease, or unspecified chronic kidney disease; N18.9 Chronic kidney disease, unspecified; D64.9 Anemia, unspecified; E21.3 Hyperparathyroidism, unspecified

== ENCOUNTER → 2017-12-19 | Outpatient (CLI) | payer OTHER, BC | END | disposition home or self-care (01) | LOC: C.PATHSPEC 17:11 | PROVIDERS: ATTEND Dermatology | DX: L57.0 Actinic keratosis (principal) ==

== ENCOUNTER 2020-04-03 10:26 | Inpatient (IN) ==
[2020-04-03] MEDS ORDERED: MoRPHine SULFATE 2 MG/ML CARP IV PRN (11:06)
[2020-04-03] MEDS ORDERED: ACETAMINOPHEN 1,000 MG/100 ML VIAL IV STA (11:09)
[2020-04-03] MEDS: MoRPHine SULFATE 4 MG/ML 1 ML CARP\\VIAL IV PRN ×3 (11:33→15:09)
[2020-04-03 11:43] LABS: Basophils # (auto) 0.01 K/uL (0-0.2); Basophils % (auto) 0.1 %; Eosinophils # (auto) 0.02 K/uL (0-0.5); Eosinophils % (auto) 0.1 %; Hematocrit (blood only) 42.6 % (37-47); Hemoglobin 14.3 g/dL (12.0-16.0); Immature Granulocytes # (auto) 0.05 K/uL (0.00-0.02); Immature Granulocytes % (auto) 0.3 %; Lymphocytes # (auto) 1.07 K/uL (1.2-3.4); Lymphocytes % (auto) 6.8 %; Mean Corpuscular Hemoglobin 28.6 pg (25-34); Mean Corpuscular Hgb Conc 33.6 g/dL (32-36); Mean Corpuscular Volume 85.2 fL (80-100); Mean Platelet Volume 9.3 fL (7.4-10.4); Monocytes # (auto) 0.81 K/uL (0.11-0.59); Monocytes % (auto) 5.1 %; Neutrophils # (auto) 13.77 K/uL (1.4-6.5); Neutrophils % (auto) 87.6 %; Platelet Count 257 K/uL (130-400); RDW Coefficient of Variation 15.4 % (11.5-14.5); RDW Standard Deviation 47.9 fL (36.4-46.3); White Blood Count 15.73 K/uL (4.8-10.8)
[2020-04-03 11:53] LABS: Partial Thromboplastin Time 27.5 Seconds (21.0-31.0); Prothrombin Time 10.4 Seconds (9.0-12.0)
[2020-04-03 11:59] LABS: BUN Creatinine Ratio 21.9 (10-20); Calcium 9.8 mg/dl (8.5-10.1); Creatinine Clr Calc Pharmacy 45.6 ml/min; Est GFR (African American) 76.8; Est GFR (Non-African American) 66.3; Potassium 3.5 mmol/L (3.5-5.1)
--- NOTE | 2020-04-03 12:26 | CT Scan Report ---
Study: CT bony pelvis HISTORY: Left hip pain COMPARISON: None. FINDINGS: Fracture base left femoral neck. Considerable degenerative change of the hip joint spaces b ilaterally. Slight superior migration left femoral shaft. There is again negative for dislocation. Nonspecific lucency at the base of the femoral neck which may simply represent osteoporotic change al though pathologic component is not excluded. The recent PET scan dated 03/31/2020 suggest a probable n onpathologic fracture although this again is not stated with absolute certainty. There are degenerative changes of all remaining bony structures. No additional acute abnormality is a ppreciated. IMPRESSION: 1. Slightly angled fracture base left femoral neck.. 2. This statistically is most consistent with that of an osteoporotic etiology, with a true pathologi c etiology less likely 3. Slight superior migration left femoral shaft. 4. No evidence for dislocation. Electronically signed by: Junito Flaherty M.D. 04/03/2020 12:25 PM
--- NOTE | 2020-04-03 13:47 | History & Physical Report ---
Date of Service April 03, 2020 Assessment & Plan (1) 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: Presented with progressively worsening left hip pain over the last month to the point where she could no longer walk and had severe pain With region of hypermetabolic activity noted in the left hip on recent PET/CT scan on 03/31 performed due to new diagnosis of breast cancer Fracture may be related to stress fracture in the setting of osteoporosis versus pathologic fracture related to metastatic breast cancer -Admit to medical/surgical floor -Consult orthopedic surgery-discussed the case with Dr. Pena who will perform surgery tomorrow to stabilize the fracture -Pain control with IV morphine, p.o. tramadol, and scheduled p.o. Tylenol -N.p.o. after midnight -We will check a rapid COVID test prior to surgery -Preoperative antibiotics ordered with Ancef-MRSA swab ordered-if positive, wou ld change preoperative antibiotics to IV vancomycin -Complete bedrest, Padilla catheter placed -Bowel regimen ordered on a as needed basis ECG is without significant abnormalities. Her renal function is stable, normally she is active and can easily achieve at least 4 METS. She has no evidence of angina or heart failure. She is at average cardiovascular perioperative risk to undergo an intermediate risk surgery and should proceed with surgery as planned. -Start maintenance IV fluids at midnight when she is n.p.o. (2) Breast cancer: Recently diagnosed, in the right breast, with evidence of hypermetabolic activity in right-sided right axillary, subpectoral and internal mammary chain lymph node involvement, as well as a hypermetabolic mass in the right hepatic lobe of the liver, and also with uptake on PET/CT in the left femoral neck. She has already been seen by Dr. Horner on one occasion for consultation in his office and he was awaiting results of PET/CT scan. 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 Membreno, and there are upcoming plans for right mastectomy with right axillary dissection after consideration of neoadjuvant chemotherapy - will consult hematology on Sunday as per patient's request -Orthopedics plans on sending the bone for pathology analysis as well after surgery to see if this is indeed metastatic disease in the bone (3) Bilateral lower extremity edema: Patient has a long history of lower extremity edema and takes Lasix as needed On examination here, her left lower extremity is more swollen than the right Venous Doppler of the left lower extremity is negative for DVT Could be secondary to venous insufficiency versus side effect of amlodipine -We will hold home Lasix for now and give as needed (4) Leukocytosis: WBC count elevated at 15 with neutrophilia on admission She is afebrile and no evidence of infection anywhere Suspect this is a stress response due to significant pain. Also completed a recent course of prednisone which could be contributing. 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, baseline GFR in the 50s to 60s Currently at baseline creatinine of 0.8 -Avoid nephrotoxins -renally dose meds when appropriate -follow BMP (9) Macular degeneration: Continue eye vitamins (10) Spinal stenosis: Pain control as needed (11) Cystocele, midline: Has a pessary in place Padilla catheter currently inserted (12) DVT prophylaxis: SCDs Disposition-admit to medical/surgical floor Full code All care discussed with daughter at the bedside at length History of Present Illness Chief Complaint: Left hip pain Primary Care Provider: Viktor Ayon, DO This patient is an 89-year-old female with a history of HTN, hyperlipidemia, CKD stage II-III, lower extremity edema secondary to venous insufficiency, osteoporosis, spinal stenosis with chronic pain, cystocele, macular degeneration and history of gastric ulcer with recent diagnosis of likely metastatic breast cancer who presents to the ER with significantly worsening left hip pain. She has had left hip pain for the last month. An x-ray initially showed arthritis a month ago. She then was diagnosed with breast cancer/invasive ductal carcinoma ER positive/OR negative, HER-2/REUBEN positive and had a PET scan which showed m etastatic disease to lymph nodes, possibly in the liver and the left hip. She was being treated with NSAIDs and a prednisone taper and then tramadol for left hip pain but the pain became worse to the point where she could not walk for the last few days. Here in the ER, she was found to have a slightly angled fracture of the base of the left femoral neck with slight superior migration of the left femoral shaft on a CT scan of the pelvis which was then confirmed also on plain films. Her WBC count was elevated at 15 K, but has been afebrile. No urinary symptoms, no cough or chest pain or shortness of breath. Denies nausea or vomiting, no abdominal pain. She will be admitted for left hip pathologic fracture for pain control and further evaluation with orthopedics. She has had no known COVID contacts and no risk factors for COVID. She lives alone and her daughter assists her. Allergies Allergy/AdvReac Type Severity Reaction Status Date / Time povidone-iodine Allergy Mild Rash Verified 04/03/20 11:17 triamcinolone [From Kenalog] Allergy hoarseness Verified 04/03/20 11:17 chlorthalidone AdvReac Intermediate hypercalcem Verified 04/03/20 11:17 ia Home Medications Home Medications Medication Instructions Recorded Confirmed Type biotin 10 mg tablet 10 mg PO Q2D tab 02/17/19 04/03/20 History cholecalciferol (vitamin D3) 125 5,000 unit PO QAM tab 02/17/19 04/03/20 History mcg (5,000 unit) tablet cyanocobalamin (vitamin B-12) 500 500 mcg PO QAM tab 02/17/19 04/03/20 History mcg tablet ferrous sulfate 325 mg (65 mg 325 mg PO 3XWK tab 02/17/19 04/03/20 History iron) tablet furosemide 20 mg tablet 20 mg PO DAILY PRN #30 tab 02/27/19 04/03/20 History vit C-vit K-[id number]-hkvk-lutein 1 cap PO BID 02/27/19 04/03/20 History [PreserVision Lutein] amlodipine 5 mg tablet 5 mg PO QAM #90 tab 02/03/20 04/03/20 Rx atorvastatin 10 mg tablet 5 mg PO QAM #45 tab 02/03/20 04/03/20 Rx acetaminophen 500 mg capsule 500 mg PO TID cap 02/24/20 04/03/20 History ascorbic acid (vitamin C) 500 mg 500 mg PO QAM cap 03/18/20 04/03/20 History capsule estradiol 2 gm PV WK gm 03/18/20 04/03/20 History tramadol 50 mg tablet 50 - 100 mg PO Q8H PRN #90 tab 03/29/20 04/03/20 Rx valsartan 160 mg tablet 160 mg PO QAM #90 tab 03/29/20 04/03/20 Rx meloxicam 15 mg tablet 15 mg PO DAILY #30 tab 04/02/20 04/03/20 Rx [id number] 12.5 mg PO QAM 04/03/20 04/03/20 History [Immune Support] Past Med/Surg History Medical History Actinic keratosis AMD (age related macular degeneration) Anxiety (Acute) Arthritis Back problem Bilateral chronic knee pain (Inactive) Osteoarthritis Bilateral lower extremity edema (Chronic) Cataract Chronic kidney disease (Suspected) Chronic serous otitis media of left ear Cystocele, midline (Acute) Dyslipidemia (Chronic) Gait disturbance (Acute) History of basal cell carcinoma History of bronchitis History of gastric ulcer History of SCC (squamous cell carcinoma) of skin Hyperparathyroidism (Acute) Hypertension (Chronic) Lentigines (Acute) Lumbar radiculopathy Macular degeneration 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 Osteoporosis (Chronic) 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 Rectocele (Acute) Spinal stenosis (Acute) Urticaria (Acute) Venous insufficiency Surgical History H/O Mohs micrographic surgery for skin cancer H/O oral surgery History of dilation and curettage Hx of cataract surgery S/P tonsillectomy Family History Mother Diabetes Acute myocardial infarction Aneurysm of abdominal aorta Hypertension Aunt Breast cancer Colon cancer Father Renal failure Prostate cancer Hypertension Unknown FHx: deafness or hearing loss Daughter Breast cancer Social History Smoking Status: Never smoker Hx Alcohol Use: No Hx Substance Use: No Preferred Language: Mauritian Communication Ability: Effective Visual Impairment: Limited Hearing Ability: Normal [employer] Required: No Beliefs That Will Affect Care: None marital status: / Current Living Situation: Alone current occupational status: retired Feels Safe at Home: Yes caffeine: Yes Dental Care, Regularly: No Physical Activity Frequency: 3-4 Times per Week Seatbelt Use: always Review of Systems Review of Systems: All systems reviewed & are unremarkable except as noted in HPI & below Physical Exam Constitutional: WD/WN, vitals as above Eyes: PERRL, conjunctivae normal, anicteric sclerae ENMT: external ear and nose normal, oropharynx normal Neck: trachea midline, no thyromegaly Respiratory: normal respiratory effort, lungs clear to auscultation Cardiovascular: Rate/Rhythm: regular rate and regular rhythm Heart Sounds: no murmur Extremities: + edema (Trace edema of the left leg); no calf tenderness Chest (Breasts): Chest: normal inspection of chest Gastrointestinal (Abdomen): normal bowel sounds, soft, nontender, no hepatosplenomegaly Musculoskeletal: Extremities: no cyanosis and no clubbing Positive tenderness to palpation over the left groin and pain in the left groin with any movement of the left lower extremity Neurovascularly intact throughout lower extremities bilaterally Skin: no rashes, warm and dry Neurologic: awake; no focal motor deficits Psychiatric: A+Ox3, euthymic affect Genitourinary: Padilla catheter in place draining clear yellow urine Lymphatic: no lymphedema Results & Data Results & Data ([facility]) Vital Signs (Past 12 Hours) Vital Signs Temp Pulse Pulse Resp BP BP Pulse Ox 04/03/20 13:00 88 18 192/96 H 96 04/03/20 11:53 90 20 166/90 H 92 04/03/20 10:29 36.7 C 92 H 20 186/90 H 97 Laboratory Results 04/03/20 04/03/20 04/03/20 Range/Units 13:55 13:30 11:30 WBC (4.8-10.8) K/uL RBC (4.2-5.4) M/uL Hgb (12.0-16.0) g/dL Hct (37-47) % MCV (80-100) fL MCH (25-34) pg MCHC (32-36) g/dL RDW Std Deviation (36.4-46.3) fL RDW Coeff of Sukhwinder (11.5-14.5) % Plt Count (130-400) K/uL MPV (7.4-10.4) fL Immature Gran % (Auto) % Neut % (Auto) % Lymph % (Auto) % [facility] % (Auto) % Eos % (Auto) % Baso % (Auto) % Neut # (Auto) (1.4-6.5) K/uL Lymph # (Auto) (1.2-3.4) K/uL [facility] # (Auto) (0.11-0.59) K/uL Eos # (Auto) (0-0.5) K/uL Baso # (Auto) (0-0.2) K/uL Immature Gran # (Auto) (0.00-0.02) K/uL PT (9.0-12.0) Seconds INR (0.9-1.1) APTT (21.0-31.0) Seconds PTT Ratio Sodium 139 (136-145) mmol/L Potassium 3.5 (3.5-5.1) mmol/L Chloride 105 (98-107) mmol/L Carbon Dioxide 31 (21-32) mmol/L Anion Gap 4.0 (3-11) BUN 17 (7-18) mg/dl Creatinine 0.80 (0.6-1.2) mg/dl Est Cr Clr Drug Dosing 45.6 ml/min Est GFR ( Amer) 76.8 Est GFR (Non-Af Amer) 66.3 BUN/Creatinine Ratio 21.9 H (10-20) Glucose 104 H (70-99) mg/dl Calcium 9.8 (8.5-10.1) mg/dl Urine Color Yellow Urine Appearance Clear (Clear) Urine pH 7.5 (4.5-7.5) Ur Specific [place] 1.010 (1.000-1.030) Urine Protein Negative (Negative) Urine Glucose (UA) Negative (Negative) Urine Ketones Negative (Negative) Urine Blood Negative (Negative) Urine Nitrite Negative (Negative) Urine Bilirubin Negative (Negative) Urine Urobilinogen Negative (Negative) Ur Leukocyte Esterase Trace H (Negative) Urine WBC (Auto) 1-5 (0-5) /hpf Urine RBC (Auto) 0-4 (0-4) /hpf U Hyaline Cast (Auto) 1-5 (0-5) /lpf U Epithel Cells (Auto) 10-20 H (0-5) /lpf Urine Bacteria (Auto) Negative (Negative) Blood Type O Positive Antibody Screen NEGATIVE 04/03/20 04/03/20 Range/Units 11:30 11:30 WBC 15.73 H (4.8-10.8) K/uL RBC 5.00 (4.2-5.4) M/uL Hgb 14.3 (12.0-16.0) g/dL Hct 42.6 (37-47) % MCV 85.2 (80-100) fL MCH 28.6 (25-34) pg MCHC 33.6 (32-36) g/dL RDW Std Deviation 47.9 H (36.4-46.3) fL RDW Coeff of Sukhwinder 15.4 H (11.5-14.5) % Plt Count 257 (130-400) K/uL MPV 9.3 (7.4-10.4) fL Immature Gran % (Auto) 0.3 % Neut % (Auto) 87.6 % Lymph % (Auto) 6.8 % [facility] % (Auto) 5.1 % Eos % (Auto) 0.1 % Baso % (Auto) 0.1 % Neut # (Auto) 13.77 H (1.4-6.5) K/uL Lymph # (Auto) 1.07 L (1.2-3.4) K/uL [facility] # (Auto) 0.81 H (0.11-0.59) K/uL Eos # (Auto) 0.02 (0-0.5) K/uL Baso # (Auto) 0.01 (0-0.2) K/uL Immature Gran # (Auto) 0.05 H (0.00-0.02) K/uL PT 10.4 (9.0-12.0) Seconds INR 1.0 (0.9-1.1) APTT 27.5 (21.0-31.0) Seconds PTT Ratio 1.0 Sodium (136-145) mmol/L Potassium (3.5-5.1) mmol/L Chloride (98-107) mmol/L Carbon Dioxide (21-32) mmol/L Anion Gap (3-11) BUN (7-18) mg/dl Creatinine (0.6-1.2) mg/dl Est Cr Clr Drug Dosing ml/min Est GFR ( Amer) Est GFR (Non-Af Amer) BUN/Creatinine Ratio (10-20) Glucose (70-99) mg/dl Calcium (8.5-10.1) mg/dl Urine Color Urine Appearance (Clear) Urine pH (4.5-7.5) Ur Specific [place] (1.000-1.030) Urine Protein (Negative) Urine Glucose (UA) (Negative) Urine Ketones (Negative) Urine Blood (Negative) Urine Nitrite (Negative) Urine Bilirubin (Negative) Urine Urobilinogen (Negative) Ur Leukocyte Esterase (Negative) Urine WBC (Auto) (0-5) /hpf Urine RBC (Auto) (0-4) /hpf U Hyaline Cast (Auto) (0-5) /lpf U Epithel Cells (Auto) (0-5) /lpf Urine Bacteria (Auto) (Negative) Blood Type Antibody Screen Diagnostic Findings CT of the pelvis images personally reviewed by me and agree with the following report: Study: CT bony pelvis HISTORY: Left hip pain COMPARISON: None. FINDINGS: Fracture base left femoral neck. Considerable degenerative change of the hip joint spaces bilaterally. Slight superior migration left femoral shaft. There is again negative for dislocation. Nonspecific lucency at the base of the femoral neck which may simply represent osteoporotic change although pathologic component is not excluded. The recent PET scan dated 03/31/2020 suggest a probable nonpathologic fracture although this again is not stated with absolute certainty. There are degenerative changes of all remaining bony structures. No additional acute abnormality is appreciated. IMPRESSION: 1. Slightly angled fracture base left femoral neck.. 2. This statistically is most consistent with that of an osteoporotic etiology, with a true pathologic etiology less likely 3. Slight superior migration left femoral shaft. 4. No evidence for dislocation. Chest x-ray images personally reviewed by me and agree with the following report: XR chest 1V portable CLINICAL HISTORY: preop preoperative COMPARISON STUDY: 04/23/2013 FINDINGS: Mild cardiomegaly. Hiatal hernia. Lungs are clear. Diaphragms are smooth. IMPRESSION: Hiatal hernia. Otherwise negative study. XR hip LT 2V w pelvis CLINICAL HISTORY: left hip fx pain COMPARISON: None. DISCUSSION: Fracture base left femoral neck. Slight superior migration left femoral shaft. Remaining bony structures are intact. There is no evidence for soft tissue swelling. IMPRESSION: Fracture base left femoral neck. XR femur LT 2V routine CLINICAL HISTORY: fracture/metastatic disease evaluation COMPARISON: None. DISCUSSION: The bones and joint spaces appear intact. There is no evidence of fracture, dislocation or bony disease. There is no evidence for soft tissue swelling. IMPRESSION: Negative study. US venous doppler LE LT CLINICAL HISTORY: r/o DVT,edema,Breast CA COMPARISON STUDY: No previous studies for comparison. FINDINGS: Real-time and color flow Doppler imaging were performed. Flow was seen within the femoral, popliteal and calf veins with no intraluminal thrombus demonstrated. The saphenous vein is patent. IMPRESSION: No evidence of deep venous thrombosis. ECG Additional Comments: ECG on 04/03/2020 at 1501 with normal sinus rhythm, rate 84, nonspecific ST and T wave abnormality, unchanged from previous Code Status & VTE Plan Code Status Full code, but states she would not want prolonged life support if in a vegetative state VTE Prophylaxis Plan VTE Prophylaxis will be ordered: Yes PG Care Time/CCT Total # of Minutes Spent Total Time Spent with Patient: Total time spent is greater than 50% in coordination of care (as documented) at patient's floor/unit and/or counseling patient: Coding Level of Care Code 85857 Initial Inpt Care Lvl 3 Diagnoses 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 M84.452A Breast cancer C50.919 Bilateral lower extremity edema R60.0 Leukocytosis D72.829 Osteoporosis M81.0 Hypertension I10 Dyslipidemia E78.5 Chronic kidney disease N18.9 Macular degeneration H35.30 Spinal stenosis M48.00 Cystocele, midline N81.11 DVT prophylaxis Z29.9
[2020-04-03 14:12] LABS: Appearance Urine Clear (Clear); Bacteria Urine Automated Negative (Negative); Bilirubin Urine Negative (Negative); Blood Urine Negative (Negative); Color Urine Yellow; Glucose Urine UA Negative (Negative); Ketones Urine Negative (Negative); Leukocyte Esterase Urine Trace (Negative); Nitrite Urine Negative (Negative); Protein Urine Negative (Negative); RBC Urine Automated 0-4 /hpf (0-4); Urobilinogen Urine Negative (Negative); pH Urine 7.5 (4.5-7.5)
--- NOTE | 2020-04-03 15:44 | XRay Report ---
XR hip LT 2V w pelvis CLINICAL HISTORY: left hip fx pain COMPARISON: None. DISCUSSION: Fracture base left femoral neck. Slight superior migration left femoral shaft. Remaining bony structures are intact. There is no evidence for soft tissue swelling. IMPRESSION: Fracture base left femoral neck. ACT 112: Negative or not required by law. The above report was generated using voice recognition software. It may contain grammatical, syntax or spelling errors. Electronically signed by: Junito Flaherty M.D. 04/03/2020 3:43 PM
--- NOTE | 2020-04-03 15:46 | XRay Report ---
XR chest 1V portable CLINICAL HISTORY: preop preoperative COMPARISON STUDY: 04/23/2013 FINDINGS: Mild cardiomegaly. Hiatal hernia. Lungs are clear. Diaphragms are smooth. IMPRESSION: Hiatal hernia. Otherwise negative study. ACT 112: Negative or not required by law. The above report was generated using voice recognition software. It may contain grammatical, syntax or spelling errors. Electronically signed by: Junito Flaherty M.D. 04/03/2020 3:45 PM
--- NOTE | 2020-04-03 15:47 | XRay Report ---
XR femur LT 2V routine CLINICAL HISTORY: fracture/metastatic disease evaluation COMPARISON: None. DISCUSSION: The bones and joint spaces appear intact. There is no evidence of fracture, dislocation o r bony disease. There is no evidence for soft tissue swelling. IMPRESSION: Negative study. ACT 112: Negative or not required by law. The above report was generated using voice recognition software. It may contain grammatical, syntax or spelling errors. Electronically signed by: Junito Flaherty M.D. 04/03/2020 3:46 PM
--- NOTE | 2020-04-03 16:44 | Orthopedic Consultation ---
Date of Consultation April 03, 2020 Assessment & Plan (1) 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: History and imaging are consistent with a pathological fracture due to the absence of trauma. More than likely, it is a pathologic fracture from metastatic disease versus completed stress fracture from osteoporosis. In either regard, this fracture should be stabilized with surgery which which would involve arthroplasty. Given her age and likely metastatic disease, consideration should be given to hemiarthroplasty. She does have symptomology and radiographs consistent with end-stage osteoarthritis, so a total hip arthroplasty is not out of the question. I like to confer with my partners to do total hip arthroplasty to ensure that we have the right plan for her. Hemiarthroplasty offers the advantage of the less blood loss, less morbidity and less complications such as hip instability. Resected bone will be sent to pathology for tissue diagnosis. Implant will be chosen to allow any adjuvant radiation the may be necessary from an oncologic perspective. I evaluated the patient in the emergency room with her daughter present. They both offered history and appropriate questions. I discussed the purpose and indications for surgery. The risks were discussed include but not limited to infection, neurovascular injury, arthrofibrosis of the hip, persistent pain related to osteoarthritis if a hemiarthroplasty is chosen, hip instability, leg length discrepancy, blood clots, and complications related to anesthesia. They both asked appropriate questions, demonstrated good understanding, and elected proceed with surgery. I did offer that I will consult with my partners before make a definitive surgical plan. I will make contact with the primary medical admitting team to ensure she is otherwise healthy and optimized for surgery. She should be n.p.o. at midnight and be on bedrest. Plan for DVT prophylaxis postop for least 6 weeks. Present on Admission?: Yes History of Present Illness Reason for Consultation: LEFT hip fx History of Present Illness 89-year-old female with a history of HTN, hyperlipidemia, CKD stage III, lower extremity edema secondary to venous insufficiency, multiple episodes of cellulitis and soft tissue infections, osteoporosis, spinal stenosis with chronic pain, history of gastric ulcer, and recent diagnosis of likely metastatic breast cancer (biopsy for breast cancer/invasive ductal carcinoma ER positive/MA negative, HER-2/REUBEN positive; PET scan showing increased metabolic activity in the lymph nodes, liver and left femoral neck) presents to the ER with significantly worsening left hip pain and inability to ambulate. Prior to 1 month ago, she was quite active. She did ambulate with a walker to avoid falling but she regularly exercised and went swimming. She has had left hip pain for the last month. This is been managed by her primary care. Initial x-ray showed no evidence of pathologic bone and there was severe osteoarthritis of the left femoral acetabular joint. She been managed with pain control and physical therapy. She was due to see Dr. Peña in the orthopedic clinic at the end of April. In the last few days, hip pain is increased to the point where she had difficulty walking. She denies any acute injuries or falls. Her ambulation was so limited that she was brought to the emergency room for this hip pain. Recent treatment for the osteoarthritis has included a prednisone taper. Patient reports that she has been otherwise well. She denies any fevers, chills, nausea, vomiting, respiratory complaints nor urinary symptoms. She has had a history of bilateral lower extremity edema that is been complicated by soft tissue trauma and infections. More recently, the left lower extremity has been more swollen and there was some concern for potential blood clot. She denies a history of any blood clots. Oncological work-up was underway. She was due to see Dr. Armstrong again in the coming weeks. Allergies Allergy/AdvReac Type Severity Reaction Status Date / Time povidone-iodine Allergy Mild Rash Verified 04/03/20 11:17 triamcinolone [From Kenalog] Allergy hoarseness Verified 04/03/20 11:17 chlorthalidone AdvReac Intermediate hypercalcem Verified 04/03/20 11:17 ia Home Medications Home Medications Medication Instructions Recorded Confirmed Type biotin 10 mg tablet 10 mg PO Q2D tab 02/17/19 04/03/20 History cholecalciferol (vitamin D3) 125 5,000 unit PO QAM tab 02/17/19 04/03/20 History mcg (5,000 unit) tablet cyanocobalamin (vitamin B-12) 500 500 mcg PO QAM tab 02/17/19 04/03/20 History mcg tablet ferrous sulfate 325 mg (65 mg 325 mg PO 3XWK tab 02/17/19 04/03/20 History iron) tablet furosemide 20 mg tablet 20 mg PO DAILY PRN #30 tab 02/27/19 04/03/20 History vit C-vit I-ushbgk-tffr-lutein 1 cap PO BID 02/27/19 04/03/20 History [PreserVision Lutein] amlodipine 5 mg tablet 5 mg PO QAM #90 tab 02/03/20 04/03/20 Rx atorvastatin 10 mg tablet 5 mg PO QAM #45 tab 02/03/20 04/03/20 Rx acetaminophen 500 mg capsule 500 mg PO TID cap 02/24/20 04/03/20 History ascorbic acid (vitamin C) 500 mg 500 mg PO QAM cap 03/18/20 04/03/20 History capsule estradiol 2 gm PV WK gm 03/18/20 04/03/20 History tramadol 50 mg tablet 50 - 100 mg PO Q8H PRN #90 tab 03/29/20 04/03/20 Rx valsartan 160 mg tablet 160 mg PO QAM #90 tab 03/29/20 04/03/20 Rx meloxicam 15 mg tablet 15 mg PO DAILY #30 tab 04/02/20 04/03/20 Rx [id number] 12.5 mg PO QAM 04/03/20 04/03/20 History [Immune Support] Patient History Medical History Actinic keratosis AMD (age related macular degeneration) Anxiety (Acute) Arthritis Back problem Bilateral chronic knee pain (Inactive) Osteoarthritis Bilateral lower extremity edema (Chronic) Cataract Chronic kidney disease (Suspected) Chronic serous otitis media of left ear Cystocele, midline (Acute) Dyslipidemia (Chronic) Gait disturbance (Acute) History of basal cell carcinoma History of bronchitis History of gastric ulcer History of SCC (squamous cell carcinoma) of skin Hyperparathyroidism (Acute) Hypertension (Chronic) Lentigines (Acute) Lumbar radiculopathy Macular degeneration 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 Osteoporosis (Chronic) Rectocele (Acute) Spinal stenosis (Acute) Urticaria (Acute) Venous insufficiency Surgical History H/O Mohs micrographic surgery for skin cancer H/O oral surgery History of dilation and curettage Hx of cataract surgery S/P tonsillectomy Family History Mother Diabetes Acute myocardial infarction Aneurysm of abdominal aorta Hypertension Aunt Breast cancer Colon cancer Father Renal failure Prostate cancer Hypertension Unknown FHx: deafness or hearing loss Daughter Breast cancer Social History Smoking Status: Former smoker Hx Alcohol Use: Yes Hx Substance Use: No Preferred Language: Chinese Communication Ability: Effective Visual Impairment: Limited Hearing Ability: Normal Share D[employer] Required: No marital status: / current occupational status: retired Feels Safe at Home: Yes caffeine: Yes Dental Care, Regularly: No Physical Activity Frequency: 3-4 Times per Week Seatbelt Use: always Review of Systems Review of Systems: All systems reviewed & are unremarkable except as noted in HPI & below Respiratory: no dyspnea and no pain on inspiration Cardiovascular: no chest pain and no lightheadedness Gastrointestinal: no nausea and no vomiting Genitourinary: no urinary frequency, no urinary hesitancy and no urinary urgency Integumentary: no rash and no lesions Neurologic: no numbness and no paresthesia Results & Data ([facility]) Vital Signs (Past 12 Hours) Vital Signs Temp Pulse Pulse Resp BP BP Pulse Ox 04/03/20 16:01 89 20 190/80 H 95 04/03/20 15:01 85 20 183/97 H 95 04/03/20 13:00 88 18 192/96 H 96 04/03/20 11:53 90 20 166/90 H 92 04/03/20 10:29 36.7 C 92 H 20 186/90 H 97 Radiographs have been performed of the pelvis, hip and left femur. Radiographs demonstrate a comminuted fracture at the base of the femoral neck with complete displacement. There is no obvious atypical bone on the x-rays. The full-length femur x-ray demonstrates no lytic bone lesions nor atypical architecture. PET scan from earlier this month demonstrates increased metabolic activity in the femoral neck that extends to about the level of the calcar. The lesser trochanter appears uninvolved. The proximal femur is without any lesions. CT imaging was reviewed as well as radiologist for interpretation. I agree with the interpretation that there is an isolated fracture to the femoral neck. There is some osteoporotic appearing bone at the base of the femoral neck adjacent to the fracture. There is no definitive atypical bone. There is severe osteoarthritis with [id number] articulation in the femoral acetabular joint. The acetabular bone architecture appears to be normal. PG Care Time/CCT Total # of Minutes Spent Total Time Spent with Patient: Total time spent is greater than 50% in coordination of care (as documented) at patient's floor/unit and/or counseling patient: Coding Level of Care Code 07258 Initial Inpt Care Lvl 3 Diagnoses 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 M84.452A
[2020-04-03] MEDS ORDERED: MAGNESIUM HYDROXIDE SUSP 30 ML UDC PO PRN (17:02)
[2020-04-03] MEDS ORDERED: ONDANSETRON INJ 2 MG/ML 2 ML VIAL IV PRN (17:02)
[2020-04-03] MEDS ORDERED: bisacodyL 10 MG SUPP PR PRN (17:02)
[2020-04-03] MEDS ORDERED: TRAMADOL HCL 50 MG TABLET PO PRN (17:02)
[2020-04-03] MEDS ORDERED: NALOXONE HCL 0.4 MG/1 ML VIAL/CARP IV PRN (17:02)
[2020-04-03] MEDS ORDERED: HydrALAZINE HCL 20 MG/ML VIAL IV PRN (17:02)
[2020-04-03] MEDS: MoRPHine SULFATE 2 MG/ML CARP IV PRN ×3 (17:36→22:15)
--- NOTE | 2020-04-03 17:49 | Emergency Department Note ---
Impression & Plan Femoral neck fracture, Metastatic breast cancer, Osteoporosis ED Provider Note NAME: ANIBAL KEY AGE: 89 SEX: F ARRIVES VIA: Walk-In INFORMANT: Patient, ED PROVIDER(S): Jayme Nelson MD CHIEF COMPLAINT: Left hip pain PLAN: Disposition: Admit MEDICAL DECISION MAKING: The patient is a pleasant 89 y/o woman with a pmhx of HTN, Osteoarthritis, and recent diagnosis of metastatic breast cancer with lymphatic spread and hepatic lesion on PET scan who presents to the emergency department with worsening left hip pain over the past few days where she is unable to walk 2/2 to her pain, which occurs in the setting of Hip XR in early March showing osteoarthritis but no fracture. PET scan this week showed question of healing stress fracture though could no exclude metastasis. Patient and daughter at beside deny any falls. Denies fevers, cough, congestion, n/v/d, urinary sx. On arrival the patient is uncomfortable but in NAD, AFVSS. On exam she exhibits moderate left inguinal tenderness with limited ROM 2/2 pain. Distal PMS intact. EKG without evidence of acute ischemia. CXR negative. WBC 15.7, nonspecific. H/H and platelets wnl. Chemistry without acidosis. UA negative for infection. CT pelvis demonstrates slightly angled fracture base left femoral neck. Dr. Kennedy, orthopedic surgery on-call, and agrees with admission to medicine service. They will be available for inpatient team consultation. Findings and plan for admission reviewed with patient and daughter. They agree. Dr. Bradshaw, [facility] hospitalist, who will evaluate the patient for admssion. Triage Nursing notes reviewed and agree them. Additional history obtained from Prior medical records reviewed Vital Signs: reviewed and remarkable for no significant abnormalities Differential diagnosis: Fracture, subluxation, dislocation, contusion, ligamentous injury, neurovascular, compartment syndrome, rhabdomyolysis, as well as other pathologies. ER treatment provided: See below. Diagnostics interpreted by me: ECG: NSR, 84 bpm, no ectopy, non specific ST and TW abnormality, no overt ST elevation or depression, QTC 451, QRS 90 Cardiac Monitoring: An order for continuous cardiac monitoring was placed and demonstrated NSR, 84 bpm, no ectopy Laboratory studies: See below Imaging studies: XR chest 1V portable CLINICAL HISTORY: preop preoperative COMPARISON STUDY: 04/23/2013 FINDINGS: Mild cardiomegaly. Hiatal hernia. Lungs are clear. Diaphragms are smooth. IMPRESSION: Hiatal hernia. Otherwise negative study. -- Study: CT bony pelvis HISTORY: Left hip pain COMPARISON: None. FINDINGS: Fracture base left femoral neck. Considerable degenerative change of the hip joint spaces bilaterally. Slight superior migration left femoral shaft. There is again negative for dislocation. Nonspecific lucency at the base of the femoral neck which may simply represent osteoporotic change although pathologic component is not excluded. The recent PET scan dated 03/31/2020 suggest a probable nonpathologic fracture although this again is not stated with absolute certainty. There are degenerative changes of all remaining bony structures. No additional acute abnormality is appreciated. IMPRESSION: 1. Slightly angled fracture base left femoral neck.. 2. This statistically is most consistent with that of an osteoporotic etiology, with a true pathologic etiology less likely 3. Slight superior migration left femoral shaft. -- XR hip LT 2V w pelvis CLINICAL HISTORY: left hip fx pain COMPARISON: None. DISCUSSION: Fracture base left femoral neck. Slight superior migration left femoral shaft. Remaining bony structures are intact. There is no evidence for soft tissue swelling. IMPRESSION: Fracture base left femoral neck. -- Consultation(s): Dr. Kennedy, orthopedic surgery on-call. Dr. Bradshaw, [facility] hospitalist. HPI: The patient is a pleasant 89 y/o woman with a pmhx of HTN, Osteoarthritis, and recent diagnosis of metastatic breast cancer with lymphatic spread and hepatic lesion on PET scan who presents to the emergency department with worsening left hip pain over the past few days where she is unable to walk 2/2 to her pain, which occurs in the setting of Hip XR in early March showing osteoarthritis but no fracture. PET scan this week showed question of healing stress fracture though could no exclude metastasis. Patient and daughter at beside deny any falls. Denies fevers, cough, congestion, n/v/d, urinary sx. ROS: See above HPI for pertinent positives & negatives. A total of 10 systems reviewed and were otherwise negative. PAST MEDICAL HISTORY:See Below PAST SURGICAL HISTORY:See Below FAMILY HISTORY:See Below SOCIAL HISTORY:See Below HOME MEDICATIONS:See Below ALLERGIES:See Below VITALS:See Below PHYSICAL EXAMINATION: GENERAL: Awake, alert, uncomfortable-appearing, in no distress HENT: Normocephalic, atraumatic. Oropharynx with dry mucous membranes and otherwise unremarkable. EYES: Normal conjunctiva. Sclera non-icteric. NECK: Supple. No nuchal rigidity. FROM. No JVD. RESPIRATORY: Clear to auscultation. CARDIAC: Regular rate, normal rhythm. Extremities warm and well perfused. Pulses equal. ABDOMEN: Soft, non-distended. No tenderness to palpation. No rebound or guarding. No masses. RECTAL: Deferred. MUSCULOSKELETAL: Chest examination reveals no tenderness. The back is symmetrical on inspection without obvious abnormality. There is no CVA tenderness to palpation. Moderate left inguinal tenderness with limited ROM 2/2 pain. Distal PMS intact. LOWER EXTREMITIES: Calves are equal size bilaterally and non-tender. Scant BLE edema. No discoloration. NEURO: Normal sensorium. No sensory or motor deficits noted. SKIN: No rash or jaundice noted. Jayme Nelson MD Past Med/Surg History Medical History Actinic keratosis AMD (age related macular degeneration) Anxiety (Acute) Arthritis Back problem Bilateral chronic knee pain (Inactive) Osteoarthritis Bilateral lower extremity edema (Chronic) Cataract Chronic kidney disease (Suspected) Chronic serous otitis media of left ear Cystocele, midline (Acute) Dyslipidemia (Chronic) Gait disturbance (Acute) History of basal cell carcinoma History of bronchitis History of gastric ulcer History of SCC (squamous cell carcinoma) of skin Hyperparathyroidism (Acute) Hypertension (Chronic) Lentigines (Acute) Lumbar radiculopathy Macular degeneration 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 Osteoarthritis of left hip Osteoporosis (Chronic) 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 Rectocele (Acute) Spinal stenosis (Acute) Urticaria (Acute) Venous insufficiency Surgical History H/O Mohs micrographic surgery for skin cancer H/O oral surgery History of dilation and curettage Hx of cataract surgery S/P tonsillectomy Family History Mother Diabetes Acute myocardial infarction Aneurysm of abdominal aorta Hypertension Aunt Breast cancer Colon cancer Father Renal failure Prostate cancer Hypertension Unknown FHx: deafness or hearing loss Daughter Breast cancer Social History Smoking Status: Never smoker Hx Alcohol Use: No Hx Substance Use: No Preferred Language: Georgian Communication Ability: Effective Visual Impairment: Limited Hearing Ability: Normal 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 Beliefs That Will Affect Care: None marital status: / Current Living Situation: Alone current occupational status: retired Feels Safe at Home: Yes caffeine: Yes Dental Care, Regularly: No Physical Activity Frequency: 3-4 Times per Week Seatbelt Use: always Allergies Allergies Allergy/AdvReac Type Severity Reaction Status Date / Time povidone-iodine Allergy Mild Rash Verified 04/03/20 11:17 triamcinolone [From Kenalog] Allergy hoarseness Verified 04/03/20 11:17 chlorthalidone AdvReac Intermediate hypercalcem Verified 04/03/20 11:17 ia Home Meds Home Medications Medication Instructions Recorded Confirmed biotin 10 mg tablet 10 mg PO Q2D tab 02/17/19 04/03/20 cholecalciferol (vitamin D3) 125 5,000 unit PO QAM tab 02/17/19 04/03/20 mcg (5,000 unit) tablet cyanocobalamin (vitamin B-12) 500 500 mcg PO QAM tab 02/17/19 04/03/20 mcg tablet ferrous sulfate 325 mg (65 mg 325 mg PO 3XWK tab 02/17/19 04/03/20 iron) tablet furosemide 20 mg tablet 20 mg PO DAILY PRN #30 tab 02/27/19 04/03/20 vit C-vit Y-pmfqga-inon-lutein 1 cap PO BID 02/27/19 04/03/20 [PreserVision Lutein] acetaminophen 500 mg capsule 500 mg PO TID cap 02/24/20 04/03/20 ascorbic acid (vitamin C) 500 mg 500 mg PO QAM cap 03/18/20 04/03/20 capsule estradiol 2 gm PV WK gm 03/18/20 04/03/20 [id number]-[id number]-[id number]-[id number] 12.5 mg PO QAM 04/03/20 04/03/20 [Immune Support] Previous Rx's Medication Instructions Recorded amlodipine 5 mg tablet 5 mg PO QAM #90 tab 02/03/20 atorvastatin 10 mg tablet 5 mg PO QAM #45 tab 02/03/20 tramadol 50 mg tablet 50 - 100 mg PO Q8H PRN #90 tab 03/29/20 valsartan 160 mg tablet 160 mg PO QAM #90 tab 03/29/20 meloxicam 15 mg tablet 15 mg PO DAILY #30 tab 04/02/20 Results & Data (ED) Vital Signs Vital Signs - 24 hr 04/03/20 10:29 04/03/20 11:53 04/03/20 13:00 Temperature 36.7 C Temperature Source Oral Pulse Rate 92 H Pulse Rate [Left Finger] 90 88 Pulse Rhythm Regular Pulse Strength Normal Respiratory Rate 20 20 18 Respiratory Effort / Characteristics Non-Labored Spontaneous Respiratory Depth Normal Respiratory Pattern Regular Blood Pressure 186/90 H Blood Pressure [Left Arm] 166/90 H 192/96 H Blood Pressure Mean 122 Blood Pressure Mean [Left Arm] 115 128 Blood Pressure Position Sitting Pulse Oximetry 97 92 96 Oxygen Delivery Method Room Air Room Air Room Air Sepsis Recent Fever Within 48 Hours No Sepsis New/Unexplained Change in Mental Status No Sepsis Action Taken by Nursing No Action Required Laboratory Data Attestation: I reviewed the patient's lab results. Result diagrams: 04/03/20 11:30 04/03/20 11:30 Lab Results 04/03/20 04/03/20 04/03/20 Range/Units 11:30 11:30 11:30 WBC 15.73 H (4.8-10.8) K/uL RBC 5.00 (4.2-5.4) M/uL Hgb 14.3 (12.0-16.0) g/dL Hct 42.6 (37-47) % MCV 85.2 (80-100) fL MCH 28.6 (25-34) pg MCHC 33.6 (32-36) g/dL RDW Std Deviation 47.9 H (36.4-46.3) fL RDW Coeff of Sukhwinder 15.4 H (11.5-14.5) % Plt Count 257 (130-400) K/uL MPV 9.3 (7.4-10.4) fL Immature Gran % (Auto) 0.3 % Neut % (Auto) 87.6 % Lymph % (Auto) 6.8 % [place] % (Auto) 5.1 % Eos % (Auto) 0.1 % Baso % (Auto) 0.1 % Neut # (Auto) 13.77 H (1.4-6.5) K/uL Lymph # (Auto) 1.07 L (1.2-3.4) K/uL [place] # (Auto) 0.81 H (0.11-0.59) K/uL Eos # (Auto) 0.02 (0-0.5) K/uL Baso # (Auto) 0.01 (0-0.2) K/uL Immature Gran # (Auto) 0.05 H (0.00-0.02) K/uL PT 10.4 (9.0-12.0) Seconds INR 1.0 (0.9-1.1) APTT 27.5 (21.0-31.0) Seconds PTT Ratio 1.0 Sodium 139 (136-145) mmol/L Potassium 3.5 (3.5-5.1) mmol/L Chloride 105 (98-107) mmol/L Carbon Dioxide 31 (21-32) mmol/L Anion Gap 4.0 (3-11) BUN 17 (7-18) mg/dl Creatinine 0.80 (0.6-1.2) mg/dl Est Cr Clr Drug Dosing 45.6 ml/min Est GFR ( Amer) 76.8 Est GFR (Non-Af Amer) 66.3 BUN/Creatinine Ratio 21.9 H (10-20) Glucose 104 H (70-99) mg/dl Calcium 9.8 (8.5-10.1) mg/dl Urine Color Urine Appearance (Clear) Urine pH (4.5-7.5) Ur Specific [place] (1.000-1.030) Urine Protein (Negative) Urine Glucose (UA) (Negative) Urine Ketones (Negative) Urine Blood (Negative) Urine Nitrite (Negative) Urine Bilirubin (Negative) Urine Urobilinogen (Negative) Ur Leukocyte Esterase (Negative) Urine WBC (Auto) (0-5) /hpf Urine RBC (Auto) (0-4) /hpf U Hyaline Cast (Auto) (0-5) /lpf U Epithel Cells (Auto) (0-5) /lpf Urine Bacteria (Auto) (Negative) Blood Type Antibody Screen 04/03/20 04/03/20 Range/Units 13:30 13:55 WBC (4.8-10.8) K/uL RBC (4.2-5.4) M/uL Hgb (12.0-16.0) g/dL Hct (37-47) % MCV (80-100) fL MCH (25-34) pg MCHC (32-36) g/dL RDW Std Deviation (36.4-46.3) fL RDW Coeff of Sukhwinder (11.5-14.5) % Plt Count (130-400) K/uL MPV (7.4-10.4) fL Immature Gran % (Auto) % Neut % (Auto) % Lymph % (Auto) % [place] % (Auto) % Eos % (Auto) % Baso % (Auto) % Neut # (Auto) (1.4-6.5) K/uL Lymph # (Auto) (1.2-3.4) K/uL [place] # (Auto) (0.11-0.59) K/uL Eos # (Auto) (0-0.5) K/uL Baso # (Auto) (0-0.2) K/uL Immature Gran # (Auto) (0.00-0.02) K/uL PT (9.0-12.0) Seconds INR (0.9-1.1) APTT (21.0-31.0) Seconds PTT Ratio Sodium (136-145) mmol/L Potassium (3.5-5.1) mmol/L Chloride (98-107) mmol/L Carbon Dioxide (21-32) mmol/L Anion Gap (3-11) BUN (7-18) mg/dl Creatinine (0.6-1.2) mg/dl Est Cr Clr Drug Dosing ml/min Est GFR ( Amer) Est GFR (Non-Af Amer) BUN/Creatinine Ratio (10-20) Glucose (70-99) mg/dl Calcium (8.5-10.1) mg/dl Urine Color Yellow Urine Appearance Clear (Clear) Urine pH 7.5 (4.5-7.5) Ur Specific [place] 1.010 (1.000-1.030) Urine Protein Negative (Negative) Urine Glucose (UA) Negative (Negative) Urine Ketones Negative (Negative) Urine Blood Negative (Negative) Urine Nitrite Negative (Negative) Urine Bilirubin Negative (Negative) Urine Urobilinogen Negative (Negative) Ur Leukocyte Esterase Trace H (Negative) Urine WBC (Auto) 1-5 (0-5) /hpf Urine RBC (Auto) 0-4 (0-4) /hpf U Hyaline Cast (Auto) 1-5 (0-5) /lpf U Epithel Cells (Auto) 10-20 H (0-5) /lpf Urine Bacteria (Auto) Negative (Negative) Blood Type O Positive Antibody Screen NEGATIVE Administered Medications Acetaminophen (Tylenol) 1,000 mg PO TID CHELLE Stop: 05/03/20 20:59 Last Admin: 04/03/20 20:06 Dose: 1,000 mg Documented by: [id number] Hydralazine HCl (Hydralazine Hcl) 5 mg IV Q8H PRN PRN Reason: SBP>180 Stop: 05/03/20 17:01 Last Admin: 04/03/20 17:36 Dose: 5 mg Documented by: [id number] Morphine Sulfate (Morphine Sulfate) 2 mg IV Q2H PRN PRN Reason: MODERATE Pain (Scale 4,5,6) Stop: 04/17/20 17:01 Last Admin: 04/03/20 20:05 Dose: 2 mg Documented by: [id number] Admin: 04/03/20 17:36 Dose: 2 mg Documented by: [id number] Multivitamins/Minerals (Multivitamin W/ Minerals Tab) 1 tab PO QAM CHELLE Stop: 05/03/20 17:29 Last Admin: 04/03/20 18:36 Dose: 1 tab Documented by: [id number] Senna/Docusate Sodium (Senokot S) 2 tab PO HS [facility] Stop: 05/03/20 20:59 Last Admin: 04/03/20 20:06 Dose: Not Given Documented by: [id number] Discontinued Medications Acetaminophen (Ofirmev) 1,000 mg in 100 mls @ 400 mls/hr IV NOW STA Stop: 04/03/20 11:23 Last Infusion: 04/03/20 11:50 Dose: 0 mls/hr Documented by: [id number] Admin: 04/03/20 11:32 Dose: 400 mls/hr Documented by: [id number] Morphine Sulfate (Morphine Sulfate) 4 mg IV Q1H PRN PRN Reason: Severe Pain (Rating 7,8,9,10) Stop: 04/17/20 11:05 Last Admin: 04/03/20 15:09 Dose: 4 mg Documented by: [id number] Admin: 04/03/20 12:58 Dose: 4 mg Documented by: [id number] Admin: 04/03/20 11:33 Dose: 4 mg Documented by: [id number] Blood Pressure Blood Pressure Findings: Elevated blood pressure Blood Pressure Disposition: further management by hospitalist Discharge Plan Visit Data *Final* Discharge Date/Time: 04/03/20 16:01 Chief Complaint: Hip Pain Stated Complaint: LEFT HIP PAIN - DR PRO REF ED Provider: Jayme Nelson Discharge Problem: Femoral neck fracture, Metastatic breast cancer, Osteoporosis Patient Disposition: Admitted As Inpatient Discharge Instructions Interventions: ED Discharge Assessment Last Done: 04/03/20 16:01 Discharge Problem: Femoral neck fracture Qualifiers: Encounter type: initial encounter Fracture type: closed Laterality: left Qualified Code(s): S72.002A - Fracture of unspecified part of neck of left femur, initial encounter for closed fracture
[2020-04-03] MEDS: CEROVITE ADV FORMULA TAB PO SCH (18:36)
--- NOTE | 2020-04-03 19:41 | Ultrasound Report ---
US venous doppler LE LT CLINICAL HISTORY: r/o DVT,edema,Breast CA COMPARISON STUDY: No previous studies for comparison. FINDINGS: Real-time and color flow Doppler imaging were performed. Flow was seen within the femoral, popliteal and calf veins with no intraluminal thrombus demonstrated. The saphenous vein is patent. IMPRESSION: No evidence of deep venous thrombosis. ACT 112: Negative or not required by law. The above report was generated using voice recognition software. It may contain grammatical, syntax or spelling errors. Electronically signed by: Junito Flaherty M.D. 04/03/2020 7:39 PM
[2020-04-03] MEDS: DOCUSATE SODIUM/SENNA 50/8.6MG TAB PO SCH (20:06)
[2020-04-03] MEDS: ACETAMINOPHEN 500 MG TAB PO SCH (20:06)
[2020-04-04] MEDS: NSS + 20MEQ KCL 20 MEQ/1,000 ML BAG IV SCH ×2 (00:10→13:36)
[2020-04-04] MEDS ORDERED: CEFAZOLIN 2000MG 2,000 MG/15 ML SYR IV SCH (06:00)
[2020-04-04 06:07] LABS: Eosinophils # (auto) 0.04 K/uL (0-0.5); Eosinophils % (auto) 0.3 %; Hemoglobin 13.5 g/dL (12.0-16.0); Immature Granulocytes # (auto) 0.03 K/uL (0.00-0.02); Immature Granulocytes % (auto) 0.3 %; Lymphocytes # (auto) 1.24 K/uL (1.2-3.4); Lymphocytes % (auto) 10.8 %; Mean Corpuscular Hgb Conc 32.9 g/dL (32-36); Mean Corpuscular Volume 85.1 fL (80-100); Mean Platelet Volume 9.5 fL (7.4-10.4); Monocytes # (auto) 0.72 K/uL (0.11-0.59); Monocytes % (auto) 6.3 %; Neutrophils # (auto) 9.45 K/uL (1.4-6.5); Neutrophils % (auto) 82.3 %; Platelet Count 224 K/uL (130-400); RDW Coefficient of Variation 15.8 % (11.5-14.5); RDW Standard Deviation 49.4 fL (36.4-46.3); Red Blood Count 4.82 M/uL (4.2-5.4); White Blood Count 11.48 K/uL (4.8-10.8)
[2020-04-04 06:42] LABS: BUN Creatinine Ratio 23.5 (10-20); Calcium 9.2 mg/dl (8.5-10.1); Est GFR (African American) 73.5; Est GFR (Non-African American) 63.4
[2020-04-04] MEDS: MoRPHine SULFATE 2 MG/ML CARP IV PRN ×3 (06:42→23:32)
--- NOTE | 2020-04-04 07:47 | Anesthesiology Consultation ---
Date of Service April 04, 2020 Assessment & Plan (1) Encounter for pre-operative examination: Chart Review Chart Review: Acceptable Risk for Surgery and Patient NOT seen in Pre Admission Testing Consults Requested none ASA ASA3 Proposed Anesthesia Anesthesia Type: General Risk / Benefits Reviewed With: PT / POA / Parent / Guardian, Accepts Plan and I nformed Consent Obtained Additional Notes Discussed both GA and spinal anesthesia with the patient and her daughters. Advised GA since there is a small but possible risk of introducing metastatic cancer cells to the CSF. Discussed risks of GA including postoperative memory loss. Patient and family comfortable with proceeding with GA. History Surgery Operation Date: 04/04/20 08:00 Proposed Procedures p Total Hip Arthroplasty Cemented(Left) - Easton Pena Height/Weight Height: 5 ft 2.5 in Weight: 69 kg Allergies Allergy/AdvReac Type Severity Reaction Status Date / Time povidone-iodine Allergy Mild Rash Verified 04/03/20 11:17 triamcinolone [From Kenalog] Allergy hoarseness Verified 04/03/20 11:17 chlorthalidone AdvReac Intermediate hypercalcem Verified 04/03/20 11:17 ia Medications Home Medications Medication Instructions Recorded Confirmed Last Taken biotin 10 mg tablet 10 mg PO Q2D tab 02/17/19 04/03/20 04/01/20 cholecalciferol (vitamin D3) 125 5,000 unit PO QAM tab 02/17/19 04/03/20 04/02/20 mcg (5,000 unit) tablet cyanocobalamin (vitamin B-12) 500 500 mcg PO QAM tab 02/17/19 04/03/20 04/02/20 mcg tablet ferrous sulfate 325 mg (65 mg 325 mg PO 3XWK tab 02/17/19 04/03/20 04/02/20 iron) tablet furosemide 20 mg tablet 20 mg PO DAILY PRN #30 tab 02/27/19 04/03/20 04/02/20 vit C-vit G-sqoujg-mzyj-lutein 1 cap PO BID 02/27/19 04/03/20 04/02/20 [PreserVision Lutein] amlodipine 5 mg tablet 5 mg PO QAM #90 tab 02/03/20 04/03/20 04/03/20 atorvastatin 10 mg tablet 5 mg PO QAM #45 tab 02/03/20 04/03/20 04/03/20 acetaminophen 500 mg capsule 500 mg PO TID cap 02/24/20 04/03/20 04/03/20 ascorbic acid (vitamin C) 500 mg 500 mg PO QAM cap 03/18/20 04/03/20 04/02/20 capsule estradiol 2 gm PV WK gm 03/18/20 04/03/20 Unknown tramadol 50 mg tablet 50 - 100 mg PO Q8H PRN #90 tab 03/29/20 04/03/20 04/02/20 75 MG valsartan 160 mg tablet 160 mg PO QAM #90 tab 03/29/20 04/03/20 04/03/20 meloxicam 15 mg tablet 15 mg PO DAILY #30 tab 04/02/20 04/03/20 04/02/20 [id number]-[id number]-H-[id number]-[id number]-[id number] 12.5 mg PO QAM 04/03/20 04/03/20 04/02/20 [Immune Support] Active Medications Generic Name Dose Route Start Last Admin Trade Name Fre PRN Reason Stop Dose Admin Acetaminophen 1,000 mg 04/03/20 21:00 04/03/20 20:06 Tylenol PO 05/03/20 20:59 1,000 mg TID CHELLE Administration Hydralazine HCl 5 mg 04/03/20 17:02 04/03/20 17:36 Hydralazine Hcl IV 05/03/20 17:01 5 mg Q8H PRN Administration SBP>180 Potassium Chloride/Sodium Chloride 20 meq in 1,000 mls @ 70 mls/hr 04/03/20 23:59 04/04/20 00:10 Normal Saline W/20 Meq Kcl IV 05/03/20 23:58 70 mls/hr .[id number] CHELLE Administration Miscellaneous 1 ea 04/04/20 00:00 04/04/20 00:13 Order Awaiting Action N/A 05/04/20 00:00 Not Given QS CHELLE Morphine Sulfate 2 mg 04/03/20 17:02 04/04/20 06:42 Morphine Sulfate IV 04/17/20 17:01 2 mg Q2H PRN Administration MODERATE Pain (Scale 4,5,6) Multivitamins/Minerals 1 tab 04/03/20 17:30 04/03/20 18:36 Multivitamin W/ Minerals Tab PO 08/31/20 17:29 1 tab QAM CHELLE Administration Senna/Docusate Sodium 2 tab 04/03/20 21:00 04/03/20 20:06 Senokot S PO 05/03/20 20:59 Not Given HS CHELLE NPO Date Last Intake of Fluids: 04/03/20 Time Last Intake of Fluids: 18:30 Date Last Intake of Solids: 04/03/20 Time Last Intake of Solids: 18:30 Past Medical History Medical History Actinic keratosis AMD (age related macular degeneration) Anxiety (Acute) Arthritis Back problem Bilateral chronic knee pain (Inactive) Osteoarthritis Bilateral lower extremity edema (Chronic) Cataract Chronic kidney disease (Suspected) Chronic serous otitis media of left ear Cystocele, midline (Acute) Dyslipidemia (Chronic) Gait disturbance (Acute) History of basal cell carcinoma History of bronchitis History of gastric ulcer History of SCC (squamous cell carcinoma) of skin Hyperparathyroidism (Acute) Hypertension (Chronic) Lentigines (Acute) Lumbar radiculopathy Macular degeneration 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 Osteoporosis (Chronic) 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 Rectocele (Acute) Spinal stenosis (Acute) Urticaria (Acute) Venous insufficiency Exercise / Class Metabolic Activity III < 4 Walking/Shop/Light housework Past Family History Family History Mother Diabetes Acute myocardial infarction Aneurysm of abdominal aorta Hypertension Aunt Breast cancer Colon cancer Father Renal failure Prostate cancer Hypertension Unknown FHx: deafness or hearing loss Daughter Breast cancer Past Surgical History Surgical History H/O Mohs micrographic surgery for skin cancer H/O oral surgery History of dilation and curettage Hx of cataract surgery S/P tonsillectomy Past Anesthesia History No Hx of Anesthesia Complications History of PONV No Hx of PONV Social History Smoking Status: Never smoker Hx Alcohol Use: No Hx Substance Use: No Review of Systems Negative for chest pain or shortness of breath. Patient denies active symptoms of GERD. Physical Exam Vital Signs Last Vital Signs Temp 36.9 C 04/04/20 07:00 Pulse 89 04/04/20 07:00 Resp 20 04/04/20 07:00 BP 134/78 04/04/20 07:00 Pulse Ox 94 04/04/20 07:00 Constitutional not obese ENMT Mouth: + edentulous; no TMJ abnormality and oral opening not small Thyromental Distance: < 3.5 Finger Breadths Mallampati Class: II Neck normal visual inspection; neck extension not limited Respiratory normal respiratory effort Auscultation: lungs clear to auscultation bilaterally Cardiovascular Rate/Rhythm: regular rate and regular rhythm Heart Sounds: no murmur Neurologic moves all extremities Psychiatric Orientation: alert and oriented x 3 Testing Laboratory Results 04/04/20 05:33 04/04/20 05:33 PT 10.4 Seconds (9.0-12.0) 04/03/20 11:30 INR 1.0 (0.9-1.1) 04/03/20 11:30 APTT 27.5 Seconds (21.0-31.0) 04/03/20 11:30 Urine Color Yellow 04/03/20 13:30 Urine Appearance Clear (Clear) 04/03/20 13:30 Urine pH 7.5 (4.5-7.5) 04/03/20 13:30 Ur Specific [place] 1.010 (1.000-1.030) 04/03/20 13:30 Urine Protein Negative (Negative) 04/03/20 13:30 Urine Glucose (UA) Negative (Negative) 04/03/20 13:30 Urine Ketones Negative (Negative) 04/03/20 13:30 Urine Nitrite Negative (Negative) 04/03/20 13:30 Ur Leukocyte Esterase Trace (Negative) H 04/03/20 13:30 Urine WBC (Auto) 1-5 /hpf (0-5) 04/03/20 13:30 Urine RBC (Auto) 0-4 /hpf (0-4) 04/03/20 13:30 U Hyaline Cast (Auto) 1-5 /lpf (0-5) 04/03/20 13:30 U Epithel Cells (Auto) 10-20 /lpf (0-5) H 04/03/20 13:30 Urine Bacteria (Auto) Negative (Negative) 04/03/20 13:30 Blood Type O Positive 04/03/20 13:55 Antibody Screen NEGATIVE 04/03/20 13:55 Electrocardiogram Date: 04/03/20 Findings: + NSR @ (84) Nonspecific ST and T wave abnormality
[2020-04-04] MEDS ORDERED: fentaNYL citrate 100 MCG/2 ML VIAL ONE ×3 (07:57→11:12)
[2020-04-04] MEDS ORDERED: PROPOFOL IV EMULSION 10 MG/ML 20 ML VIAL IV ONE (07:59)
[2020-04-04] MEDS ORDERED: ROCURONIUM BROMIDE 10 MG/ML 5 ML VIAL IV ONE (07:59)
[2020-04-04] MEDS ORDERED: LIDOCAINE HCL 2% 2 ML VIAL/AMP(20MG/ML) INFIL ONE (07:59)
[2020-04-04] MEDS ORDERED: ONDANSETRON INJ 2 MG/ML 2 ML VIAL ONE (07:59)
[2020-04-04] MEDS ORDERED: DEXAMETHASONE SOD INJ 4 MG/ML VIAL ONE (07:59)
[2020-04-04] MEDS ORDERED: EPINEPHrine INJ 1 MG/ML AMP ONE (08:23)
[2020-04-04] MEDS ORDERED: BUPIVACAINE 0.5 % 5 MG/1 ML MPF 30ML VIAL ONE (08:24)
[2020-04-04] MEDS ORDERED: BACITRACIN INJ 50,000 UNIT VIAL ONE (08:24)
[2020-04-04] MEDS ORDERED: CEFAZOLIN 250 MG/ML 1 GM VIAL ONE (08:43)
[2020-04-04] MEDS ORDERED: GLYCOPYRROLATE 0.2 MG/ML VIAL ONE (08:58)
[2020-04-04] MEDS ORDERED: NEOSTIGMINE METHYLSULFATE 5 MG/5 ML SYR ONE (08:58)
[2020-04-04] MEDS ORDERED: ASCORBIC ACID 500 MG TAB PO SCH (09:00)
[2020-04-04] MEDS ORDERED: HYDROmorphone INJ 2 MG/ML SYR/VIAL IV PRN (09:11)
[2020-04-04] MEDS ORDERED: ATROPINE SULFATE 0.1 MG/ML 10ML SYR IV PRN (09:11)
[2020-04-04] MEDS ORDERED: ONDANSETRON INJ 2 MG/ML 2 ML VIAL IV PRN ×2 (09:11→11:45)
[2020-04-04] MEDS ORDERED: ePHEDrine sulfate 50 MG/ML AMP IV PRN (09:11)
--- NOTE | 2020-04-04 10:43 | Post Operative Brief Note ---
PG Immediate Post Op with CF Date of Surgery April 04, 2020 Pre & Post Diagnosis Operation Date: 04/04/20 08:00 Pre-Op Diagnosis: Left Hip Fracture Post-Op Diagnosis: Left Hip Fracture I identified the patient and participated in the time-out.: Yes Procedure Operation Date: 04/04/20 08:00 Actual Procedures p Total Hip Arthroplasty Cemented(Left) - Abdirashid Peña Surgeon Abdirashid Peña MD Silk Screener Easton Pena MD Estimated Blood Loss 200 Findings Consistent with Post-Op Diagnosis Specimens Specimen Description: A. Left Femoral Head
--- NOTE | 2020-04-04 10:58 | Operative Report ---
Post Operative Report Pre & Post Diagnosis Operation Date: 04/04/20 08:00 Pre-Op Diagnosis: Left displaced femoral neck/hip Fracture Post-Op Diagnosis: Left displaced femoral neck/hip Fracture I identified the patient and participated in the time-out.: Yes Procedure Operation Date: 04/04/20 08:00 Actual Procedures p Total Hip Arthroplasty Cemented(Left) - Easton Pena Surgeon Abdirashid Peña MD Powerhouse Mechanic Supervisor Easton Pena MD Estimated Blood Loss 200 Findings Consistent with Post-Op Diagnosis Operative findings were displaced femoral neck fracture. There was a fairly noted lower neck fracture. She had diffuse osteopenia. There was no obvious pathological fracture. She did have underlying hip arthritis. Fluids 1100 cc. Specimens Left femoral head sent for pathology. Drains None. Anesthesia Type General Complications none Disposition Accompanied Patient To Recovery: Yes Disposition: Recovery Room Indications Patient is an 89-year-old elderly frail female with a host of medical issues but a fairly active despite this to had a several week history of increasing left hip pain discomfort. She is recently been diagnosed with metastatic breast cancer. She had a PET scan which suggested increased activity in the femoral neck area. It was questionable whether this is metastatic disease versus a stress fracture. She was scheduled to be seen later this week at the end of the week in clinic and she had increased pain discomfort decreased ambulatory ability. She was brought to emergency room x-ray of his x-rays revealed a displaced femoral neck fracture. She was medically admitted and medically optimized and indicated for surgical fixation. She does have underlying hip arthritis and therefore elected proceed with hybrid total hip arthroplasty. Was felt that this was most likely an osteopenic insufficiency fracture but always a possibility of a metastatic lesion and pathological fracture. Description of Procedure Operative implants consist of: 1. Biomet G7 size 54 mm acetabular shell. 2. 6.5 cancellus acetabular screws 1 of 35 mm length and 120 mm length. 3. Dola hole eliminator. 4. Highly cross-linked polyethylene liner with a 54 mm outer diameter and 40 mm inner diameter. 5. Josefina size 12 cemented LD fracture fracture stem. 6. +10.5/40 mm metal articular ball. Patient was taken to the operating identified and placed on the operating table supine position protectors were properly padded. IV antibiotics arrived by anesthesia team. A general anesthetic was employed by the anesthesia team. Patient was then placed in the right lateral decubitus position. An axillary roll was placed. A Stulberg hip positioner was used for positioning. Left hip and leg were then prepped and draped in usual sterile fashion. A posterior lateral posterior left hip was then performed through a curvilinear incision centered over the greater trochanter but sharp dissection got through subcutaneous tissue down to level the IT band gluteal fascia the IT band gluteal fascia were then incised longitudinally in line with skin incision. There is quite a bit of hemorrhage posteriorly. I did release the external rotators as well as the piriformis along with the posterior capsule as a single layer. Hip was internally rotated. Femoral neck osteotomy cut was made at the base of the fracture which was just above the lesser trochanter. The femoral neck was removed and sent to pathology. The femoral head was removed and sent for pathology. The femur was retracted anteriorly. Attention drawn the acetabulum. The acetabulum labrum was excised. The pulmonary fat was excised. Sequential reaming the acetabular was then performed begin with size 45 and progressing up to 53. A 54 mm Biomet G7 acetabular shell was then placed in about 40 degrees lateral opening and 20 degrees of anteversion. Fairly large anterior osteophyte was removed. Trial liner was placed. Attention drawn the femur. The proximal femur was entered with a cookie-cutter followed by canal finder. I then broached begin the size 10 and progressing up to 12. We got pretty good fit of the 12. I did leave this just a little proud of the calcar cut. We then trialed the hip. Her soft tissue tension was fairly lax. Therefore we ended up using a test of 10.5 head in order to try to maximize her soft tissue tension and her stability. The hip was fully stable in full extension and external rotation flexion to 9 degrees internal rotation about [address] these implants. All trial implants were removed. An apex hole eliminator was placed. Highly cross-linked polyethylene liner was placed. A small cement restrictor was placed in the canal. A double batch Palacos G cement was mixed and injected into the canal and a size 12 LD fracture fracture stem was impacted in position along with a centralizer. We held this until the cement hardened. I then trialed it again and elected to place a 10.5 neck length in order to optimize soft tissue tension and stability. We did use a 40 head in order to maximize her stability. Attention drawn toward closing. The posterior capsule and external rotators were repaired as a single layer through drill holes in the posterior trochanter. The IT band gluteal fascia then closed in 1 PDS suture in a running fashion the subcutaneous tissue then closed 2 layers the deep layer #1 Vicryl suture and subcutaneous tissues with 2- 0 Dexon suture in a buried interrupted fashion the skin was closed skin prem. Leg was then cleaned dried a sterile dressing composed Xeroform, 4 x 4's, sterile ABD pad and foam tape was applied. Patient then transferred to the recovery room in stable condition. She was brought out of general anesthesia and transferred to the recovery room. All needle sponge counts were correct at the end the operation. Easton Pena MD was present and scrubbed and assisted throughout the entire case. His presence was essential to appropriate positioning, prepping and draping, exposure, performing the technical aspects of the surgery, implanting the implants, closure, and placement of the sterile dressing. I attest to the content of the Intraoperative Record and any orders documented therein. Any exceptions are noted below.
[2020-04-04] MEDS: fentaNYL citrate 100 MCG/2 ML VIAL IV PRN ×2 (11:13→11:19)
--- NOTE | 2020-04-04 11:31 | XRay Report ---
XR hip LT min 2V CLINICAL HISTORY: Total hip arthroplasty COMPARISON: 04/03/2020 DISCUSSION: There are postsurgical changes of a total left hip arthroplasty. The acetabular and femor al components appear well seated. There are no acute fractures. There is no dislocation. There is gas present within the soft tissues consistent with recent surgery. There are overlying skin prem. IMPRESSION: Postsurgical changes of a total left hip arthroplasty. ACT 112: Negative or not required by law. Electronically signed by: Gregory Woodruff M.D. 04/04/2020 11:29 AM
[2020-04-04] MEDS ORDERED: SODIUM CHLORIDE 0.9% 1000ML 1,000 ML IV SCH (11:45)
[2020-04-04] MEDS ORDERED: ALUMINUM/MAGNESIUM SUSP 30 ML UDC PO PRN (11:45)
[2020-04-04] MEDS ORDERED: METOCLOPRAMIDE HCL INJ 5 MG/ML 2 ML VIAL IV PRN (11:45)
[2020-04-04] MEDS ORDERED: NALOXONE HCL 0.4 MG/1 ML VIAL/CARP IV PRN (11:45)
[2020-04-04] MEDS ORDERED: MAGNESIUM HYDROXIDE SUSP 30 ML UDC PO PRN (11:45)
[2020-04-04] MEDS ORDERED: bisacodyL 10 MG SUPP PR PRN (11:45)
[2020-04-04] MEDS ORDERED: HYDROmorphone INJ 0.5 MG/0.5 ML SYR IV PRN (11:45)
--- NOTE | 2020-04-04 11:45 | Anesthesiology Progress Note ---
Date of Service April 04, 2020 Anesthesia Post Procedure Vital Signs Vital Signs: Temp Pulse Pulse Pulse Pulse Pulse Resp 04/04/20 11:35 36.6 C 94 H 13 04/04/20 11:25 94 H 12 04/04/20 11:15 102 H 16 04/04/20 11:05 97 H 15 04/04/20 10:55 97 H 14 04/04/20 10:45 37 C 96 H 16 04/04/20 07:00 36.9 C 89 20 04/03/20 23:08 36.6 C 97 H 16 04/03/20 18:34 04/03/20 17:03 36.7 C 96 H 16 04/03/20 16:01 89 20 04/03/20 15:01 85 20 04/03/20 13:00 88 18 04/03/20 11:53 90 20 BP BP Pulse Ox 04/04/20 11:35 138/66 100 04/04/20 11:25 146/64 H 100 04/04/20 11:15 156/83 H 100 04/04/20 11:05 158/74 H 100 04/04/20 10:55 156/81 H 100 04/04/20 10:45 154/80 H 100 04/04/20 07:00 134/78 94 04/03/20 23:08 122/76 93 04/03/20 18:34 136/80 94 04/03/20 17:03 187/106 H 99 04/03/20 16:01 190/80 H 95 04/03/20 15:01 183/97 H 95 04/03/20 13:00 192/96 H 96 04/03/20 11:53 166/90 H 92 Pain Intensity Head: Pain Intensity: 5 Left Hip: Pain Intensity: 7 Left Leg: Pain Intensity: 3 Transfer of Care Handoff Completed per policy Notes Mental Status: alert / awake / arousable and participated in evaluation Patient Amnestic to Procedure: Yes Nausea / Vomiting: adequately controlled Pain: adequately controlled Airway Patency, RR, SpO2: stable & adequate BP & HR: stable & adequate Hydration State: stable & adequate Anesthetic Complications: no major complications apparent and Pt Satisfied with anesthetic care
--- NOTE | 2020-04-04 13:10 | Electrocardiogram Report ---
Test Reason : Blood Pressure : / mmHG Vent. Rate : 084 BPM Atrial Rate : 084 BPM P-R Int : 160 ms QRS Dur : 090 ms QT Int : 382 ms P-R-T Axes : 059 020 071 degrees QTc Int : 451 ms Normal sinus rhythm Nonspecific ST and T wave abnormality Abnormal ECG When compared with ECG of 23-APR-2013 09:04, No significant change was found Confirmed by Jordon Solis ([id number]) on 04/04/2020 1:09:38 PM Referred By: REFERRED SELF Confirmed By:Jordon Solis
[2020-04-04] MEDS: ACETAMINOPHEN 500 MG TAB PO SCH ×3 (13:29→20:19)
[2020-04-04] MEDS: VALSARTAN 80 MG TAB PO SCH (13:30)
[2020-04-04] MEDS: ATORVASTATIN 10 MG TAB PO SCH (13:31)
[2020-04-04] MEDS: CEROVITE ADV FORMULA TAB PO SCH (13:32)
[2020-04-04] MEDS: CYANOCOBALAMIN 500 MCG TABLET (VITAMIN B-12) PO SCH (13:32)
[2020-04-04] MEDS: AMLODIPINE BESYLATE 5 MG TAB PO SCH (13:32)
[2020-04-04] MEDS: CHOLECALCIFEROL 1,000 UNITS 25 MCG TAB PO SCH (13:33)
[2020-04-04] MEDS ORDERED: ACETAMINOPHEN 500 MG TAB PO SCH (14:00)
[2020-04-04] MEDS ORDERED: Nursing to Pharmacy Communication SCH (14:00)
[2020-04-04] MEDS: ASCORBIC ACID 500 MG TAB PO SCH (16:41)
[2020-04-04] MEDS: FERROUS GLUCONATE 324 MG TAB PO SCH (16:41)
[2020-04-04] MEDS: CEFAZOLIN 1000MG 1,000 MG/7.5 ML SYR IV SCH (16:42)
[2020-04-04] MEDS ORDERED: TRANEXAMIC ACID / 0.7% NACL 1,000 MG/100 ML BAG IV SCH (17:01)
[2020-04-04] MEDS: ASPIRIN 81 MG ECTAB PO SCH (20:19)
[2020-04-04] MEDS: DOCUSATE SODIUM 100 MG CAP PO SCH (20:19)
[2020-04-04] MEDS: SENNA 8.6 MG TAB PO SCH (20:19)
[2020-04-04] MEDS: DOCUSATE SODIUM/SENNA 50/8.6MG TAB PO SCH (20:20)
--- NOTE | 2020-04-04 22:09 | Communication Note ---
Date of Service: April 04, 2020 Patient was reassigned to ortho as primary service. please call hospital service if needs to be seen.
[2020-04-05] MEDS: CEFAZOLIN 1000MG 1,000 MG/7.5 ML SYR IV SCH (00:10)
[2020-04-05] MEDS: NSS + 20MEQ KCL 20 MEQ/1,000 ML BAG IV SCH ×2 (02:36→16:03)
[2020-04-05] MEDS: MoRPHine SULFATE 2 MG/ML CARP IV PRN ×3 (05:06→13:42)
[2020-04-05] MEDS: ASCORBIC ACID 500 MG TAB PO SCH ×2 (07:54→16:05)
[2020-04-05] MEDS: ASPIRIN 81 MG ECTAB PO SCH ×2 (07:55→20:55)
[2020-04-05] MEDS: MULTIVITAMIN TAB PO SCH (07:58)
[2020-04-05] MEDS: VALSARTAN 80 MG TAB PO SCH (08:12)
[2020-04-05] MEDS: AMLODIPINE BESYLATE 5 MG TAB PO SCH (08:12)
[2020-04-05] MEDS: ATORVASTATIN 10 MG TAB PO SCH (08:12)
[2020-04-05] MEDS: CEROVITE ADV FORMULA TAB PO SCH (08:12)
[2020-04-05] MEDS: CYANOCOBALAMIN 500 MCG TABLET (VITAMIN B-12) PO SCH (08:12)
[2020-04-05] MEDS: ACETAMINOPHEN 500 MG TAB PO SCH ×3 (08:14→20:43)
[2020-04-05] MEDS: DOCUSATE SODIUM 100 MG CAP PO SCH ×2 (08:14→20:56)
[2020-04-05] MEDS: CHOLECALCIFEROL 1,000 UNITS 25 MCG TAB PO SCH (08:14)
[2020-04-05] MEDS: FERROUS GLUCONATE 324 MG TAB PO SCH ×2 (08:15→16:05)
[2020-04-05] MEDS ORDERED: FERROUS SULFATE 325 MG TAB PO SCH (09:00)
[2020-04-05] MEDS: OXYCODONE HCL IR 5 MG TAB (IMMEDIATE RELEASE) PO PRN (10:06)
--- NOTE | 2020-04-05 10:39 | Orthopedic Progress Note ---
Date of Service April 05, 2020 Assessment & Plan (1) Femoral neck fracture: Uncomplicated progress at [facility] for ANDRES for femoral neck fracture - may be completed stress fx or metastatic lesion, path pending. - Mobilize with PT/OT: posterior hip precautions, WBAT. - DVT ppx - Pain control: wean towards oral regimen. - Dressing change tomorrow and then daily Dispo: Depending on PT/OT eval. Could be ready tomorrow if pain is tolerable. Present on Admission?: Yes Subjective Seen in the room with her daughter, Nanad, present. She reports that she stood at bedside last night. Pain was severe and required morphine but comfortable now. Patient and daughter interested in Oncology input, if possible, on this admission, but they are aware that oncology unlikely to provide treatment during this stay. They have appt with Dr. Armstrong on Saturday 04/07. Review of Systems Review of Systems: All systems reviewed & are unremarkable except as noted in HPI & below Physical Exam Physical Exam: LLE: Dressing c/d/i. +DF/PF/EHL. palpable dp/pt pulses. Abd pillow present. Constitutional: well developed and well nourished; no acute distress and not intoxicated appearing ENMT: external ear and nose normal, oropharynx normal Respiratory: normal respiratory effort; no respiratory distress Cardiovascular: Extremities: normal capillary refill; no edema Skin: no rashes, warm and dry Psychiatric: A+Ox3, euthymic affect Results & Data ([facility]) Vital Signs (Past 12 Hours) Vital Signs Temp Pulse Resp BP Pulse Ox 04/05/20 07:13 36.4 C L 86 16 133/78 92 04/05/20 03:03 36.4 C L 87 16 114/71 97 04/04/20 23:25 100 04/04/20 23:20 99 04/04/20 22:59 36.8 C 93 H 16 107/68 100 PG Care Time/CCT Total # of Minutes Spent Total Time Spent with Patient: Total time spent is greater than 50% in coordination of care (as documented) at patient's floor/unit and/or counseling patient: Coding Level of Care Code None Diagnoses Femoral neck fracture S72.002A Encounter type: initial encounter Fracture type: closed Laterality: left (1) Femoral neck fracture Encounter type: initial encounter Fracture type: closed Laterality: left Qualified Code(s): S72.002A - Fracture of unspecified part of neck of left femur, initial encounter for closed fracture
[2020-04-05] MEDS: SENNA 8.6 MG TAB PO SCH (20:44)
[2020-04-05] MEDS: DOCUSATE SODIUM/SENNA 50/8.6MG TAB PO SCH (20:55)
[2020-04-06 06:54] LABS: Hematocrit (blood only) 28.6 % (37-47); Hemoglobin 9.3 g/dL (12.0-16.0); Mean Corpuscular Hemoglobin 28.3 pg (25-34); Mean Corpuscular Hgb Conc 32.5 g/dL (32-36); Mean Corpuscular Volume 86.9 fL (80-100); Mean Platelet Volume 9.7 fL (7.4-10.4); Platelet Count 199 K/uL (130-400); RDW Standard Deviation 51.9 fL (36.4-46.3); Red Blood Count 3.29 M/uL (4.2-5.4); White Blood Count 14.77 K/uL (4.8-10.8)
[2020-04-06 07:05] LABS: BUN Creatinine Ratio 47.1 (10-20); Calcium 8.7 mg/dl (8.5-10.1); Creatinine Clr Calc Pharmacy 39.7 ml/min; Est GFR (African American) 64.9
[2020-04-06] MEDS: OXYCODONE HCL IR 5 MG TAB (IMMEDIATE RELEASE) PO PRN (08:57)
[2020-04-06] MEDS: ASPIRIN 81 MG ECTAB PO SCH ×2 (08:58→21:54)
[2020-04-06] MEDS: AMLODIPINE BESYLATE 5 MG TAB PO SCH (08:58)
[2020-04-06] MEDS: DOCUSATE SODIUM 100 MG CAP PO SCH ×2 (08:58→21:54)
[2020-04-06] MEDS: CYANOCOBALAMIN 500 MCG TABLET (VITAMIN B-12) PO SCH (08:58)
[2020-04-06] MEDS: CHOLECALCIFEROL 1,000 UNITS 25 MCG TAB PO SCH (08:58)
[2020-04-06] MEDS: CEROVITE ADV FORMULA TAB PO SCH (08:59)
[2020-04-06] MEDS: VALSARTAN 80 MG TAB PO SCH (08:59)
[2020-04-06] MEDS: MULTIVITAMIN TAB PO SCH (08:59)
[2020-04-06] MEDS: ASCORBIC ACID 500 MG TAB PO SCH ×3 (08:59→17:36)
[2020-04-06] MEDS: ATORVASTATIN 10 MG TAB PO SCH (08:59)
[2020-04-06] MEDS: ACETAMINOPHEN 500 MG TAB PO SCH ×3 (09:00→21:54)
[2020-04-06] MEDS: FERROUS GLUCONATE 324 MG TAB PO SCH ×2 (09:01→17:34)
[2020-04-06] MEDS: NSS + 20MEQ KCL 20 MEQ/1,000 ML BAG IV SCH (10:21)
--- NOTE | 2020-04-06 10:57 | XCELERA ---
[id number]
--- NOTE | 2020-04-06 11:09 | Progress Notes ---
DATE: 04/06/2020 SUBJECTIVE: An 89-year-old female postop day 2 from a left hybrid total hip arthroplasty for displaced femoral neck fracture. She is doing reasonably well. Having a moderate amount of pain. No chest pain or shortness of breath. Not feeling dizzy or lightheaded. No other complaints. OBJECTIVE: VITAL SIGNS: Temperature is 36.9. Vital signs stable. Heart rate in the low 100s intermittently. PHYSICAL EXAMINATION: GENERAL: Shows a pleasant elderly female. She is sitting up in bed, looks quite comfortable. She is talking to her daughter. She is awake, alert and oriented. EXTREMITIES: Examination of the left leg reveals the leg lengths to be equal. Her dressing is clean, dry and intact. Thigh is soft and supple. She is neurologically intact. LABORATORY DATA: Hemoglobin is 9.3. Hematocrit 28.6. Electrolytes are stable. Pathology results are pending. ASSESSMENT: An 89-year-old female postop day #2 from a left hybrid total hip replacement for displaced femoral neck fracture with a recent diagnosis of metastatic breast cancer. There was concern about pathological fracture. Pathology is still pending. She has been a little bit tachycardic, but asymptomatic. Her hemoglobin is stable. Hip is located. She is neurologically intact. PLAN: 1. DVT prophylaxis including thigh-high TEDs, SCDs, and aspirin twice a day for the next 6 weeks. 2. PT/OT. She can weightbear as tolerated. Needs to obey hip precautions. 3. Pain control. She seems to be doing pretty well with current pain regimen. 4. Medical management as per the medicine service. 5. History of a recent diagnosis of breast cancer. She was seen by Dr. Horner her oncologist this morning. He has apparently ordered some tests. She can follow up with those as an outpatient. 6. Disposition: She was initially planning to go to [facility] but now decided on a [facility] facility at her daughter's choosing. We will look into that further with hopeful discharge in the next day or so.
--- NOTE | 2020-04-06 12:32 | Hospitalist Progress Note ---
Date of Service April 06, 2020 Assessment & Plan (1) 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: Presented with progressively worsening left hip pain over the last month to the point where she could no longer walk and had severe pain With region of hypermetabolic activity noted in the left hip on recent PET/CT scan on 03/31 performed due to new diagnosis of breast cancer Fracture may be related to stress fracture in the setting of osteoporosis versus pathologic fracture related to metastatic breast cancer s/p left hybrid ANDRES pathology of left hip still pending, looking for evidence of metastatic breast CA drop in Hb to 9.6 today, represents mild acute blood loss anemia continue aspirin 81 BID for DVT prophylaxis continue PT/OT planning on rehab once she is ready for discharge suspect she will be here 2-3 more days (2) Breast cancer: Recently diagnosed, in the right breast, with evidence of hypermetabolic activity in right-sided right axillary, subpectoral and internal mammary chain lymph node involvement, as well as a hypermetabolic mass in the right hepatic lobe of the liver, and also with uptake on PET/CT in the left femoral neck. She has already been seen by Dr. Horner on one occasion for consultation in his office and he was awaiting results of PET/CT scan. 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 Horner (3) Bilateral lower extremity edema: Patient has a long history of lower extremity edema and takes Lasix as needed Venous Doppler of the left lower extremity is negative for DVT (4) Leukocytosis: WBC count elevated at 15 with neutrophilia on admission She is afebrile and no evidence of infection anywhere Suspect this is a stress response due to significant pain. Also completed a recent course of prednisone which could be contributing. 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, baseline GFR in the 50s to 60s Currently at baseline creatinine of 0.92 -Avoid nephrotoxins -renally dose meds when appropriate -follow BMP (9) Macular degeneration: Continue eye vitamins (10) Spinal stenosis: Pain control as needed (11) Cystocele, midline: Has a pessary in place Padilla catheter currently inserted (12) DVT prophylaxis: aspirin BID Disposition- continue medical floor plan for SNF rehab in a few days Full code All care discussed with daughter at the bedside at length Admission and Anticipated Discharge Date Admission Date: April 03, 2020 Subjective patient seen with her daughter at the bedside several complaints her hip is painful intermittently but overall well controlled she had a headache but that is improving she has some swelling in her right hand, IV is placed on that side and has known axillary adenopathy on the right daughter concerned about HR in low 100's, explained that it could be due to pain and Hb dropping Hb was 9.3 this morning, repeat is 9.6 BP normal to low normal today daughter requested echo to be done, EF is 65%, this is needed prior to treatment for breast CA patient does not want any surgery, she is willing to try chemotherapy pills, daughter stresses that quality of life is focus patient eating okay, not great, she ate better yesterday Review of Systems Review of Systems: All systems reviewed & are unremarkable except as noted in Subjective Physical Exam Constitutional: WD/WN, vitals as above Eyes: PERRL, conjunctivae normal, anicteric sclerae ENMT: external ear and nose normal, oropharynx normal Neck: trachea midline, no thyromegaly Respiratory: normal respiratory effort; no respiratory distress and no cough Auscultation: lungs clear to auscultation bilaterally and + diminished lung sounds (bases) Cardiovascular: Rate/Rhythm: regular rhythm and + tachycardic Heart Sounds: normal S1 and normal S2; no murmur Vessels: no JVD Extremities: normal capillary refill and + edema (mild in hands) Gastrointestinal (Abdomen): Inspection/Auscultation: + abdomen distended (mildly) and normal bowel sounds Percussion/Palpation: abdomen soft and normal to percussion; abdomen nontender, no guarding and abdomen not rigid Musculoskeletal: Head/Neck/Chest: normocephalic, head atraumatic and neck supple Extremities: + limited ROM of extremities (hip due to pain) and strength 5/5 throughout; no cyanosis and no clubbing Skin: no rashes, warm and dry Neurologic: patellar DTR's 2+ bilat, sensation intact and PERRL, EOMI, accommodation nl, no face palsy, no dysarthria Psychiatric: A+Ox3, euthymic affect Lymphatic: no cervical or axillary lymphadenopathy Results & Data Results & Data ([facility]) Vital Signs (Past 12 Hours) Vital Signs Temp Pulse Resp BP Pulse Ox 04/06/20 07:39 36.9 C 101 H 17 125/74 96 Laboratory Results Laboratory Results - last 24 hr 04/06/20 04/06/20 05:38 05:38 WBC 14.77 H RBC 3.29 L Hgb 9.3 L Hct 28.6 L MCV 86.9 MCH 28.3 MCHC 32.5 RDW Std Deviation 51.9 H RDW Coeff of Sukhwinder 16.0 H Plt Count 199 MPV 9.7 Sodium 140 Potassium 5.0 Chloride 111 H Carbon Dioxide 25 Anion Gap 4.0 BUN 43 H Creatinine 0.92 Est Cr Clr Drug Dosing 39.7 Est GFR ( Amer) 64.9 Est GFR (Non-Af Amer) 56.0 BUN/Creatinine Ratio 47.1 H Glucose 93 Calcium 8.7 PG Care Time/CCT Total # of Minutes Spent Total Time Spent: 40 Total Time Spent with Patient: Total time spent is greater than 50% in coordination of care (as documented) at patient's floor/unit and/or counseling patient: Coding Level of Care Code 44583 Subseq Hosp Care Lvl 3 Diagnoses 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 M84.452A Breast cancer C50.919 Bilateral lower extremity edema R60.0 Leukocytosis D72.829 Osteoporosis M81.0 Hypertension I10 Dyslipidemia E78.5 Chronic kidney disease N18.9 Macular degeneration H35.30 Spinal stenosis M48.00 Cystocele, midline N81.11 DVT prophylaxis Z29.9
[2020-04-06 15:20] LABS: Hemoglobin 9.6 g/dL (12.0-16.0)
[2020-04-06] MEDS: EMERGEN C PO SCH (15:42)
[2020-04-06] MEDS: MoRPHine SULFATE 2 MG/ML CARP IV PRN (20:22)
[2020-04-06] MEDS: DOCUSATE SODIUM/SENNA 50/8.6MG TAB PO SCH (21:54)
[2020-04-06] MEDS: SENNA 8.6 MG TAB PO SCH (21:54)
[2020-04-07 06:00] LABS: Hematocrit (blood only) 25.6 % (37-47); Hemoglobin 8.5 g/dL (12.0-16.0); Mean Corpuscular Hemoglobin 28.5 pg (25-34); Mean Corpuscular Hgb Conc 33.2 g/dL (32-36); Mean Corpuscular Volume 85.9 fL (80-100); Mean Platelet Volume 9.5 fL (7.4-10.4); Platelet Count 227 K/uL (130-400); RDW Coefficient of Variation 15.9 % (11.5-14.5); RDW Standard Deviation 50.2 fL (36.4-46.3); Red Blood Count 2.98 M/uL (4.2-5.4); White Blood Count 13.12 K/uL (4.8-10.8)
[2020-04-07 06:29] LABS: BUN Creatinine Ratio 53.3 (10-20); Calcium 8.6 mg/dl (8.5-10.1); Creatinine Clr Calc Pharmacy 44.5 ml/min; Est GFR (African American) 74.6; Est GFR (Non-African American) 64.3; Potassium 4.4 mmol/L (3.5-5.1)
[2020-04-07] MEDS: OXYCODONE HCL IR 5 MG TAB (IMMEDIATE RELEASE) PO PRN (09:06)
[2020-04-07] MEDS: EMERGEN C PO SCH (09:09)
[2020-04-07] MEDS: ASCORBIC ACID 500 MG TAB PO SCH ×2 (09:11→16:58)
[2020-04-07] MEDS: MULTIVITAMIN TAB PO SCH (09:11)
[2020-04-07] MEDS: VALSARTAN 80 MG TAB PO SCH (09:11)
[2020-04-07] MEDS: CYANOCOBALAMIN 500 MCG TABLET (VITAMIN B-12) PO SCH ×2 (09:11→11:07)
[2020-04-07] MEDS: CEROVITE ADV FORMULA TAB PO SCH (09:12)
[2020-04-07] MEDS: ACETAMINOPHEN 500 MG TAB PO SCH ×3 (09:13→21:14)
[2020-04-07] MEDS: CHOLECALCIFEROL 1,000 UNITS 25 MCG TAB PO SCH (09:13)
[2020-04-07] MEDS: FERROUS GLUCONATE 324 MG TAB PO SCH ×2 (09:15→17:00)
[2020-04-07] MEDS: ATORVASTATIN 10 MG TAB PO SCH (09:16)
[2020-04-07] MEDS: AMLODIPINE BESYLATE 5 MG TAB PO SCH ×2 (09:16→11:06)
[2020-04-07] MEDS: DOCUSATE SODIUM 100 MG CAP PO SCH ×3 (09:16→21:08)
[2020-04-07] MEDS: ASPIRIN 81 MG ECTAB PO SCH ×3 (09:16→21:14)
--- NOTE | 2020-04-07 09:58 | Progress Notes ---
DATE: 04/07/2020 SUBJECTIVE: An 89-year-old female postop day 3 from a left hybrid total hip replacement done for fracture. She is doing okay. She was pretty confused last night, but doing a bit better this morning. Just feels wiped out. No chest pain or shortness of breath. Not feeling dizzy or lightheaded. OBJECTIVE: VITAL SIGNS: Temperature 36.8. Vital signs stable. Some mild intermittent tachycardia. EXTREMITIES: Examination of the left hip reveals the dressing to be clean, dry and intact. Thigh is soft and supple. Hip is located. She is neurologically intact. LABORATORY DATA: Hemoglobin 8.5. Hematocrit 25.6. Electrolytes are stable. ASSESSMENT: An 89-year-old white female postoperative day 3 from a left hybrid hip replacement done for fracture. She is doing okay. She is trying to decide where to go for recovery. PLAN: 1. DVT prophylaxis including thigh-high TEDs, SCDs, and aspirin twice a day. 2. PT/OT. She can fully weightbear on the left leg. She needs to obey hip precautions. 3. Pain control, doing okay with current pain regimen. 4. Medical management as per the medicine service. 5. Disposition: She is planning to be discharged to either rehab or [facility] facility. Family is trying to make a decision on this. Social service is involved. She is orthopedically okay for discharge any time medically stable.
[2020-04-07] MEDS ORDERED: FUROSEMIDE 20 MG TAB PO ONE (11:15)
--- NOTE | 2020-04-07 11:46 | Electrocardiogram Report ---
Test Reason : Blood Pressure : / mmHG Vent. Rate : 102 BPM Atrial Rate : 102 BPM P-R Int : 160 ms QRS Dur : 082 ms QT Int : 326 ms P-R-T Axes : 024 015 072 degrees QTc Int : 424 ms Sinus tachycardia Otherwise normal ECG When compared with ECG of 03-APR-2020 15:01, No significant change was found Confirmed by Amado Ortiz ([id number]) on 04/07/2020 11:46:20 AM Referred By: REFERRED SELF Confirmed By:Aniket Ortiz
[2020-04-07 14:38] LABS: Hematocrit (blood only) 27.7 % (37-47); Hemoglobin 8.8 g/dL (12.0-16.0)
[2020-04-07] MEDS ORDERED: OPTIRAY 320 125ml IV ONE (16:40)
--- NOTE | 2020-04-07 16:51 | CT Scan Report ---
CT ANGIOGRAM OF THE CHEST CLINICAL HISTORY: Dyspnea. COMPARISON STUDY: Chest CT dated 02/06/2013. Chest x-ray dated 04/03/2020. PET CT dated 03/31/2020. TECHNIQUE: Following the IV administration of 118 cc of Optiray 320, CT angiogram of the chest was pe rformed from the upper abdomen to the thoracic inlet utilizing the pulmonary embolus protocol. Images are reviewed in the axial, sagittal, and coronal planes. 3-D MIPS images are created and assessed. I V contrast was administered without complication. A dose lowering technique was utilized adhering to the principles of ALARA. The examination is compromised by motion artifact. There is streak artifact from a necklace. CT DOSE: 568.35 mGy.cm FINDINGS: Thyroid: Imaged portions of the thyroid gland are normal in size and attenuation. Thoracic aorta: There is atherosclerotic calcification of the thoracic aorta, which is normal in tomasz gustavo and demonstrates standard 3-vessel arch anatomy. No dissection is seen. Pulmonary vasculature: The pulmonary trunk is normal in caliber. There are no filling defects identif ied in main, lobar, or proximal segmental pulmonary branches to suggest pulmonary embolus. Evaluation of the peripheral branches is degraded by motion artifact, especially in the right lower lobe. Heart: The heart is normal in size and without pericardial effusion. Lungs and pleural spaces: Evaluation of the lung parenchyma is degraded by motion artifact. The trach ea and central airways are clear. There is no airspace consolidation or pleural effusion. Foci of lukas ear atelectasis/scarring are present in both lungs, greatest at the right lung base. Mediastinum: There is no mediastinal lymphadenopathy. Nikki: Clear. Axillae: There are enlarged right axillary lymph nodes. A lakia aggregate seen on image #112 measures approximately 3 x 1.5 cm. Surgical clips are noted. No left axillary adenopathy is identified. Upper abdomen: There is a large hiatal hernia, with nearly the entire stomach located in the thoracic cavity. Partially visualized upper abdominal viscera is otherwise grossly unremarkable. Skeletal structures: The skeletal structures are osteopenic. Degenerative change and hyperkyphosis is seen in the thoracic spine. There are mild compression deformities in the upper to midthoracic regio n. No lytic or blastic bony lesions are seen. Soft tissues: There is diffuse infiltration of the right breast with mild overlying dermal thickening . There is a suggestion of a masslike opacity in image #36 measuring 2.8 cm. IMPRESSION: 1. Motion compromised examination. 2. There is no evidence of pulmonary embolus in the main, lobar, or proximal segmental pulmonary alexander jake. 3. There is no airspace consolidation typical for pneumonia or pleural effusion. 4. There is soft tissue infiltration of the right breast with masslike densities and pathologically e nlarged right axillary lymph nodes. Correlation with the patient's oncological history will be requir ed. 5. Large hiatal hernia. ACT 112: Negative or not required by law. Electronically signed by: Kayden Neff M.D. 04/07/2020 4:50 PM
[2020-04-07] MEDS: SENNA 8.6 MG TAB PO SCH (21:08)
[2020-04-07] MEDS: DOCUSATE SODIUM/SENNA 50/8.6MG TAB PO SCH (21:08)
--- NOTE | 2020-04-07 22:25 | Hospitalist Progress Note ---
Date of Service April 07, 2020 Assessment & Plan (1) 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: Presented with progressively worsening left hip pain over the last month to the point where she could no longer walk and had severe pain With region of hypermetabolic activity noted in the left hip on recent PET/CT scan on 03/31 performed due to new diagnosis of breast cancer Fracture may be related to stress fracture in the setting of osteoporosis versus pathologic fracture related to metastatic breast cancer s/p left hybrid ANDRES pathology of left hip shows stress fracture, no evidence of metastatic breast CA drop in Hb to 8.8 today, represents mild acute blood loss anemia, repeat in the AM continue aspirin 81 BID for DVT prophylaxis continue PT/OT planning on rehab, should be ready for [facility] tomorrow (2) Breast cancer: Recently diagnosed, in the right breast, with evidence of hypermetabolic activity in right-sided right axillary, subpectoral and internal mammary chain lymph node involvement, as well as a hypermetabolic mass in the right hepatic lobe of the liver, and also with uptake on PET/CT in the left femoral neck. She has already been seen by Dr. Horner on one occasion for consultation in his office and he was awaiting results of PET/CT scan. 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 Horner, plan for chemotherapy (3) Bilateral lower extremity edema: Patient has a long history of lower extremity edema and takes Lasix as needed Venous Doppler of the left lower extremity is negative for DVT resume Lasix (4) Leukocytosis: WBC count elevated at 15 with neutrophilia on admission She is afebrile and no evidence of infection anywhere Suspect this is a stress response due to significant pain. Also completed a recent course of prednisone which could be contributing. 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, baseline GFR in the 50s to 60s Currently at baseline creatinine of 0.8 -Avoid nephrotoxins -renally dose meds when appropriate -follow BMP (9) Macular degeneration: Continue eye vitamins (10) Spinal stenosis: Pain control as needed (11) Cystocele, midline: Has a pessary in place Padilla catheter currently inserted (12) Sinus tachycardia: CT chest negative for PE likely HR being driven by anemia, pain monitor (13) DVT prophylaxis: aspirin BID Disposition- continue medical floor plan for SNF rehab in a few days Full code All care discussed with daughter at the bedside at length Admission and Anticipated Discharge Date Admission Date: April 03, 2020 Subjective patient doing better, she moved her bowels twice which made her feel better breathing is stable HR still in the low 100's, minimal pain she did have a little chest pain last night Hb down to 8.5 this morning, repeat up to 8.8 d/w daughter at the bedside, will check CTA chest -- negative for PE patient likely for d/c tomorrow, cleared by Dr. Peña for d/c Review of Systems Review of Systems: All systems reviewed & are unremarkable except as noted in Subjective Constitutional: no fever, no fatigue and no weakness Respiratory: no cough and no dyspnea Cardiovascular: + chest pain (transient, last night) and + edema; no dyspnea and no palpitations Gastrointestinal: no abdominal pain, no nausea, no vomiting, no constipation and no diarrhea/loose stools Musculoskeletal: + joint pain (left hip) Physical Exam Constitutional: WD/WN, vitals as above Eyes: PERRL, conjunctivae normal, anicteric sclerae ENMT: external ear and nose normal, oropharynx normal Neck: trachea midline, no thyromegaly Respiratory: normal respiratory effort; no respiratory distress and no cough Auscultation: lungs clear to auscultation bilaterally and + diminished lung sounds (bases) Cardiovascular: Rate/Rhythm: regular rhythm and + tachycardic Heart Sounds: normal S1 and normal S2; no murmur Vessels: no JVD Extremities: normal capillary refill and + edema (mild in hands) Gastrointestinal (Abdomen): Inspection/Auscultation: abdomen normal to inspec tion and normal bowel sounds Percussion/Palpation: abdomen soft and normal to percussion; abdomen nontender, no guarding and abdomen not rigid Musculoskeletal: Head/Neck/Chest: normocephalic, head atraumatic and neck supple Extremities: + limited ROM of extremities (hip due to pain) and stre ngth 5/5 throughout; no cyanosis and no clubbing Skin: no rashes, warm and dry Neurologic: patellar DTR's 2+ bilat, sensation intact and PERRL, EOMI, accommodation nl, no face palsy, no dysarthria Psychiatric: A+Ox3, euthymic affect Lymphatic: no cervical or axillary lymphadenopathy Results & Data Results & Data ([facility]) Vital Signs (Past 12 Hours) Vital Signs Temp Pulse Resp BP Pulse Ox 04/07/20 15:28 36.7 C 90 18 111/61 91 Laboratory Results Laboratory Results - last 24 hr 04/07/20 04/07/20 04/07/20 05:35 05:35 14:27 WBC 13.12 H RBC 2.98 L Hgb 8.5 L 8.8 L Hct 25.6 L 27.7 L MCV 85.9 MCH 28.5 MCHC 33.2 RDW Std Deviation 50.2 H RDW Coeff of Sukhwinder 15.9 H Plt Count 227 MPV 9.5 Sodium 141 Potassium 4.4 Chloride 112 H Carbon Dioxide 25 Anion Gap 4.0 BUN 44 H Creatinine 0.82 Est Cr Clr Drug Dosing 44.5 Est GFR ( Amer) 74.6 Est GFR (Non-Af Amer) 64.3 BUN/Creatinine Ratio 53.3 H Glucose 101 H Calcium 8.[address] chest PE protocol IMPRESSION: 1. Motion compromised examination. 2. There is no evidence of pulmonary embolus in the main, lobar, or proximal segmental pulmonary arteries. 3. There is no airspace consolidation typical for pneumonia or pleural effusion. 4. There is soft tissue infiltration of the right breast with masslike densities and pathologically enlarged right axillary lymph nodes. Correlation with the patient's oncological history will be required. 5. Large hiatal hernia. Medications Administered Current Inpatient Medications Acetaminophen (Tylenol) 1,000 mg PO TID [facility] Stop: 05/03/20 20:59 Last Admin: 04/07/20 21:14 Dose: 1,000 mg Documented by: Al Hydrox/Mg Hydrox/Simethicone (Maalox) 15 ml PO Q4H PRN PRN Reason: Heartburn Stop: 05/04/20 11:44 Amlodipine Besylate (Norvasc) 5 mg PO [facility] Stop: 05/04/20 08:59 Last Admin: 04/07/20 11:06 Dose: 5 mg Documented by: Ascorbic Acid (Vitamin C) 500 mg PO BIDM [facility] Stop: 05/04/20 16:59 Last Admin: 04/07/20 16:58 Dose: Not Given Documented by: Aspirin (Ecotrin Ectab) 81 mg PO BID [facility] Stop: 05/04/20 20:59 Last Admin: 04/07/20 21:14 Dose: 81 mg Documented by: Atorvastatin Calcium (Lipitor) 5 mg PO [facility] Stop: 05/04/20 08:59 Last Admin: 04/07/20 09:16 Dose: 5 mg Documented by: Bisacodyl (Dulcolax) 10 mg AR DAILY PRN PRN Reason: Constipation Stop: 05/04/20 11:44 Cyanocobalamin (Vitamin B-12) 500 mcg PO [facility] Stop: 05/04/20 08:59 Last Admin: 04/07/20 11:07 Dose: 500 mcg Documented by: Docusate Sodium (Colace) 100 mg PO BID [facility] Stop: 05/04/20 20:59 Last Admin: 04/07/20 21:08 Dose: Not Given Documented by: Ferrous Gluconate (Ferrous Gluconate) [facility] Stop: 05/04/20 16:59 Last Admin: 04/07/20 17:00 Dose: 324 mg Documented by: Furosemide (Lasix) 20 mg PO [facility] Stop: 05/08/20 08:59 Hydralazine HCl (Hydralazine Hcl) 5 mg IV Q8H PRN PRN Reason: SBP>180 Stop: 05/03/20 17:01 Last Admin: 04/03/20 17:36 Dose: 5 mg Documented by: Hydromorphone HCl (Dilaudid) 0.5 mg IV Q4H PRN PRN Reason: Pain or Pre PT Stop: 04/18/20 11:44 Magnesium Hydroxide (Milk Of Magnesia) 30 ml PO Q6H PRN PRN Reason: Constipation Stop: 05/04/20 11:44 Metoclopramide HCl (Reglan) 10 mg IV Q6H PRN PRN Reason: Nausea And Vomiting Stop: 05/04/20 11:44 Morphine Sulfate (Morphine Sulfate) 2 mg IV Q2H PRN PRN Reason: MODERATE Pain (Scale 4,5,6) Stop: 04/17/20 17:01 Last Admin: 04/06/20 20:22 Dose: 2 mg Documented by: Multivitamins (Multivitamin Tab) 1 tab PO QAM [facility] Stop: 05/05/20 08:59 Last Admin: 04/07/20 09:11 Dose: Not Given Documented by: Multivitamins/Minerals (Multivitamin W/ Minerals Tab) 1 tab PO QAM [facility] Stop: 05/03/20 17:29 Last Admin: 04/07/20 09:12 Dose: 1 tab Documented by: Naloxone HCl (Narcan) 0.1 mg IV UD PRN PRN Reason: Opiate Overdose Stop: 05/03/20 17:01 Naloxone HCl (Narcan) 0.1 mg IV Q5M PRN PRN Reason: Oversedation/Resp Depression Stop: 05/04/20 11:44 Emergen-C: Non- Formulary Patient's Own Med 1 ea PO DAILY [facility] Stop: 05/06/20 14:59 Last Admin: 04/07/20 09:09 Dose: 1 ea Documented by: Ondansetron HCl (Zofran) 4 mg IV Q6H PRN PRN Reason: Nausea And Vomiting Stop: 05/03/20 17:01 Oxycodone HCl (Roxicodone Immediate Rel) 5 mg PO Q4H PRN PRN Reason: MODERATE Pain (Scale 4,5,6) Stop: 04/17/20 17:01 Last Admin: 04/07/20 09:06 Dose: 5 mg Documented by: Senna/Docusate Sodium (Senokot S) 2 tab PO [facility] Stop: 05/03/20 20:59 Last Admin: 04/07/20 21:08 Dose: Not Given Documented by: Sennosides (Senokot) 17.2 mg PO [facility] Stop: 05/04/20 20:59 Last Admin: 04/07/20 21:08 Dose: Not Given Documented by: Tramadol HCl (Ultram) 100 mg PO Q8H PRN PRN Reason: pain Stop: 05/03/20 17:01 Valsartan (Diovan) 160 mg PO QAM [facility] Stop: 05/04/20 08:59 Last Admin: 04/07/20 09:11 Dose: 160 mg Documented by: Vitamin D (Vitamin D3) 5,000 units PO QAM [facility] Stop: 05/04/20 08:59 Last Admin: 04/07/20 09:13 Dose: 5,000 units Documented by: PG Care Time/CCT Total # of Minutes Spent Total Time Spent with Patient: Total time spent is greater than 50% in coordination of care (as documented) at patient's floor/unit and/or counseling patient: Coding Level of Care Code 08990 Subseq Hosp Care Lvl 3 Diagnoses 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 M84.452A Breast cancer C50.919 Bilateral lower extremity edema R60.0 Leukocytosis D72.829 Osteoporosis M81.0 Hypertension I10 Dyslipidemia E78.5 Chronic kidney disease N18.9 Macular degeneration H35.30 Spinal stenosis M48.00 Cystocele, midline N81.11 Sinus tachycardia R00.0 DVT prophylaxis Z29.9
[2020-04-08] MEDS: OXYCODONE HCL IR 5 MG TAB (IMMEDIATE RELEASE) PO PRN (06:40)
[2020-04-08] MEDS: CYANOCOBALAMIN 500 MCG TABLET (VITAMIN B-12) PO SCH (08:39)
[2020-04-08] MEDS: ACETAMINOPHEN 500 MG TAB PO SCH ×3 (08:39→20:37)
[2020-04-08] MEDS: DOCUSATE SODIUM 100 MG CAP PO SCH ×3 (08:39→20:39)
[2020-04-08] MEDS: CHOLECALCIFEROL 1,000 UNITS 25 MCG TAB PO SCH (08:42)
[2020-04-08] MEDS: CEROVITE ADV FORMULA TAB PO SCH (08:42)
[2020-04-08] MEDS: ASCORBIC ACID 500 MG TAB PO SCH ×2 (08:42→17:01)
[2020-04-08] MEDS: ATORVASTATIN 10 MG TAB PO SCH (08:43)
[2020-04-08] MEDS: AMLODIPINE BESYLATE 5 MG TAB PO SCH (08:44)
[2020-04-08] MEDS: FERROUS GLUCONATE 324 MG TAB PO SCH ×2 (08:44→17:01)
[2020-04-08] MEDS: EMERGEN C PO SCH (08:45)
[2020-04-08] MEDS: ASPIRIN 81 MG ECTAB PO SCH ×2 (08:45→20:36)
[2020-04-08] MEDS: VALSARTAN 80 MG TAB PO SCH (08:45)
[2020-04-08] MEDS: MULTIVITAMIN TAB PO SCH (08:48)
--- NOTE | 2020-04-08 08:57 | Progress Notes ---
DATE: 04/08/2020 SUBJECTIVE: An 89-year-old white female now postop day 4 from a left hybrid total hip replacement for femoral neck fracture. She is doing a little bit better this morning. It did not have a real good night sleep diane. Some moderate hip pain. No chest pain or shortness of breath. OBJECTIVE: VITAL SIGNS: Temperature is 36.6. Vital signs stable. GENERAL: Shows a pleasant elderly female. She is sitting up in her chair, looks reasonably comfortable. EXTREMITIES: Examination of left hip reveals the dressing to be clean, dry and intact. Thigh is soft and supple. Hip is located. She is neurologically intact. LABORATORY DATA: Her hemoglobin from yesterday is stable at 8.5 and a second recheck at 8.8. ASSESSMENT: An 89-year-old white female now 4 days out from a left hybrid total hip replacement done for fracture. The pathology on the fracture was negative for any underlying breast cancer or metastatic lesion which is as I suspected. PLAN: 1. DVT prophylaxis including thigh-high TEDs, SCDs, and aspirin twice a day for the next 6 weeks. 2. PT/OT. She will weightbear as tolerated. Needs to obey hip precautions. 3. Pain control, seems to be doing okay with current pain regimen. 4. Medical management as per the medicine service. 5. Disposition: She is orthopedically okay for discharge. She appears stable. I need to see her back 2 weeks out from surgery. Any orthopedic questions can be directed to me at [phone].
[2020-04-08] MEDS: FUROSEMIDE 20 MG TAB PO SCH (09:58)
[2020-04-08] MEDS ORDERED: TRAMADOL HCL 50 MG TABLET PO PRN (11:29)
[2020-04-08 12:01] LABS: Eosinophils # (auto) 0.03 K/uL (0-0.5); Eosinophils % (auto) 0.3 %; Hematocrit (blood only) 25.8 % (37-47); Hemoglobin 8.5 g/dL (12.0-16.0); Immature Granulocytes # (auto) 0.02 K/uL (0.00-0.02); Immature Granulocytes % (auto) 0.2 %; Lymphocytes # (auto) 0.63 K/uL (1.2-3.4); Mean Corpuscular Hgb Conc 32.9 g/dL (32-36); Mean Corpuscular Volume 84.9 fL (80-100); Mean Platelet Volume 9.1 fL (7.4-10.4); Monocytes # (auto) 0.55 K/uL (0.11-0.59); Monocytes % (auto) 5.2 %; Neutrophils # (auto) 9.28 K/uL (1.4-6.5); Neutrophils % (auto) 88.3 %; Platelet Count 274 K/uL (130-400); RDW Coefficient of Variation 15.3 % (11.5-14.5); RDW Standard Deviation 47.8 fL (36.4-46.3); Red Blood Count 3.04 M/uL (4.2-5.4); White Blood Count 10.51 K/uL (4.8-10.8)
[2020-04-08] MEDS: ESCITALOPRAM OXALATE 10 MG TAB PO SCH (12:01)
[2020-04-08 12:25] LABS: BUN Creatinine Ratio 41.7 (10-20); Calcium 9.2 mg/dl (8.5-10.1); Creatinine Clr Calc Pharmacy 48.7 ml/min; Est GFR (African American) 83.1; Est GFR (Non-African American) 71.7; Potassium 4.1 mmol/L (3.5-5.1)
[2020-04-08] MEDS: DOCUSATE SODIUM/SENNA 50/8.6MG TAB PO SCH ×2 (20:36→20:43)
[2020-04-08] MEDS: SENNA 8.6 MG TAB PO SCH ×2 (20:37→20:43)
--- NOTE | 2020-04-08 22:28 | Hospitalist Progress Note ---
Date of Service April 08, 2020 Assessment & Plan (1) 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: Presented with progressively worsening left hip pain over the last month to the point where she could no longer walk and had severe pain With region of hypermetabolic activity noted in the left hip on recent PET/CT scan on 03/31 performed due to new diagnosis of breast cancer Fracture may be related to stress fracture in the setting of osteoporosis versus pathologic fracture related to metastatic breast cancer s/p left hybrid ANDRES pathology of left hip shows stress fracture, no evidence of metastatic breast CA drop in Hb to 8.5 today, represents mild acute blood loss anemia, repeat in the AM continue aspirin 81 BID for DVT prophylaxis continue PT/OT planning on rehab, should be ready for [facility] tomorrow hopefully (2) Breast cancer: Recently diagnosed, in the right breast, with evidence of hypermetabolic activity in right-sided right axillary, subpectoral and internal mammary chain lymph node involvement, as well as a hypermetabolic mass in the right hepatic lobe of the liver, and also with uptake on PET/CT in the left femoral neck. She has already been seen by Dr. Horner on one occasion for consultation in his office and he was awaiting results of PET/CT scan. 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 Horner, plan for chemotherapy, likely hormone therapy (3) Bilateral lower extremity edema: Patient has a long history of lower extremity edema and takes Lasix as needed Venous Doppler of the left lower extremity is negative for DVT resume Lasix, responding well already (4) Leukocytosis: WBC count elevated at 15 with neutrophilia on admission She is afebrile and no evidence of infection anywhere Suspect this is a stress response due to significant pain. Also completed a recent course of prednisone which could be contributing. 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, baseline GFR in the 50s to 60s Currently at baseline creatinine of 0.75 -Avoid nephrotoxins -renally dose meds when appropriate -follow BMP (9) Macular degeneration: Continue eye vitamins (10) Spinal stenosis: Pain control as needed (11) Cystocele, midline: Has a pessary in place Padilla catheter currently inserted (12) Sinus tachycardia: CT chest negative for PE likely HR being driven by anemia, pain monitor (13) Reactive depression (situational): due to breast CA, hip fracture, missing her daughter, need to go to [facility] patient wants SSRI will start Lexapro 10mg daily (14) DVT prophylaxis: aspirin BID Disposition- continue medical floor plan for [facility] tomorrow Full code All care discussed with daughter at the bedside at length Admission and Anticipated Discharge Date Admission Date: April 03, 2020 Subjective patient laying in bed today, not having as good a day as the day prior she says she feels depressed about her breast CA, about her hip fracture, about having to go to rehab her daughter asked if she could go to [facility] instead, I advised against this as she would greatly benefit from [facility] explained that she could get stronger in a week at [facility] and then return to [facility] patient not eating as well her edema is improving after Lasix resumed reviewed labs, Hb is 8.5, Cr and electrolytes stable patient requests something for depression, explained that it was really just situational depression due to her circumstances will try some Lexapro, explained that we would not see results for a few weeks Review of Systems Review of Systems: All systems reviewed & are unremarkable except as noted in Subjective Constitutional: + fatigue and + weakness; no fever Respiratory: no cough and no dyspnea Cardiovascular: no chest pain Gastrointestinal: no abdominal pain, no nausea, no vomiting, no constipation and no diarrhea/loose stools Musculoskeletal: + joint pain (hip) Psychiatric: + depression and + abnormal sleep pattern; no suicidal ideation and no homicidal ideation Physical Exam Constitutional: WD/WN, vitals as above Eyes: PERRL, conjunctivae normal, anicteric sclerae ENMT: external ear and nose normal, oropharynx normal Neck: trachea midline, no thyromegaly Respiratory: normal respiratory effort; no respiratory distress and no cough Auscultation: lungs clear to auscultation bilaterally and + diminished lung sounds (bases) Cardiovascular: Rate/Rhythm: regular rate and regular rhythm Heart Sounds: normal S1 and normal S2; no murmur Vessels: no JVD Extremities: normal capillary refill and + edema (mild in hands) Gastrointestinal (Abdomen): Inspection/Auscultation: abdomen normal to inspection and normal bowel sounds Percussion/Palpation: abdomen soft and normal to percussion; abdomen nontender, no guarding and abdomen not rigid Musculoskeletal: Head/Neck/Chest: normocephalic, head atraumatic and neck sup ple Extremities: + limited ROM of extremities (hip due to pain) and strength 5/5 throughout; no cyanosis and no clubbing Skin: no rashes, warm and dry Neurologic: patellar DTR's 2+ bilat, sensation intact and PERRL, EOMI, accommodation nl, no face palsy, no dysarthria Psychiatric: Orientation: alert and oriented x 3 Affect: + depressed affect Mood: + depressed mood Lymphatic: no cervical or axillary lymphadenopathy Results & Data Results & Data ([facility]) Vital Signs (Past 12 Hours) Vital Signs Temp Pulse Pulse Pulse Resp BP BP 04/08/20 15:03 36.5 C 99 H 16 121/72 04/08/20 11:07 36.6 C 90 91 H 94 H 16 113/68 156/80 H Pulse Ox 04/08/20 15:03 92 04/08/20 11:07 95 Laboratory Results Laboratory Results - last 24 hr 04/08/20 04/08/20 11:45 11:45 WBC 10.51 RBC 3.04 L Hgb 8.5 L Hct 25.8 L MCV 84.9 MCH 28.0 MCHC 32.9 RDW Std Deviation 47.8 H RDW Coeff of Sukhwinder 15.3 H Plt Count 274 MPV 9.1 Immature Gran % (Auto) 0.2 Neut % (Auto) 88.3 Lymph % (Auto) 6.0 Irion % (Auto) 5.2 Eos % (Auto) 0.3 Baso % (Auto) 0.0 Neut # (Auto) 9.28 H Lymph # (Auto) 0.63 L Irion # (Auto) 0.55 Eos # (Auto) 0.03 Baso # (Auto) 0.00 Immature Gran # (Auto) 0.02 Sodium 140 Potassium 4.1 Chloride 107 Carbon Dioxide 28 Anion Gap 4.0 BUN 31 H Creatinine 0.75 Est Cr Clr Drug Dosing 48.7 Est GFR ( Amer) 83.1 Est GFR (Non-Af Amer) 71.7 BUN/Creatinine Ratio 41.7 H Glucose 94 Calcium 9.2 Medications Administered Current Inpatient Medications Acetaminophen (Tylenol) 1,000 mg PO TID [facility] Stop: 05/03/20 20:59 Last Admin: 04/08/20 20:37 Dose: 1,000 mg Documented by: Al Hydrox/Mg Hydrox/Simethicone (Maalox) 15 ml PO Q4H PRN PRN Reason: Heartburn Stop: 05/04/20 11:44 Amlodipine Besylate (Norvasc) 5 mg PO [facility] Stop: 05/04/20 08:59 Last Admin: 04/08/20 08:44 Dose: 5 mg Documented by: Ascorbic Acid (Vitamin C) 500 mg PO BIDM [facility] Stop: 05/04/20 16:59 Last Admin: 04/08/20 17:01 Dose: 500 mg Documented by: Aspirin (Ecotrin Ectab) 81 mg PO BID [facility] Stop: 05/04/20 20:59 Last Admin: 04/08/20 20:36 Dose: 81 mg Documented by: Atorvastatin Calcium (Lipitor) [facility] [place] Stop: 05/04/20 08:59 Last Admin: 04/08/20 08:43 Dose: 5 mg Documented by: Bisacodyl (Dulcolax) 10 mg [place] DAILY PRN PRN Reason: Constipation Stop: 05/04/20 11:44 Cyanocobalamin (Vitamin B-12) 500 mcg PO [facility] Stop: 05/04/20 08:59 Last Admin: 04/08/20 08:39 Dose: 500 mcg Documented by: Docusate Sodium (Colace) 100 mg PO BID [facility] Stop: 05/04/20 20:59 Last Admin: 04/08/20 20:39 Dose: Not Given Documented by: Escitalopram Oxalate (Lexapro Tab) 10 mg [facility] [place] Stop: 05/08/20 11:59 Last Admin: 04/08/20 12:01 Dose: 10 mg Documented by: Ferrous Gluconate (Ferrous Gluconate) 324 [facility] [place] Stop: 05/04/20 16:59 Last Admin: 04/08/20 17:01 Dose: 324 mg Documented by: Furosemide (Lasix) 20 mg PO QAM [facility] Stop: 05/08/20 08:59 Last Admin: 04/08/20 09:58 Dose: 20 mg Documented by: Hydralazine HCl (Hydralazine Hcl) 5 mg IV Q8H PRN PRN Reason: SBP>180 Stop: 05/03/20 17:01 Last Admin: 04/03/20 17:36 Dose: 5 mg Documented by: Hydromorphone HCl (Dilaudid) 0.5 mg IV Q4H PRN PRN Reason: Pain or Pre PT Stop: 04/18/20 11:44 Magnesium Hydroxide (Milk Of Magnesia) 30 ml PO Q6H PRN PRN Reason: Constipation Stop: 05/04/20 11:44 Metoclopramide HCl (Reglan) 10 mg IV Q6H PRN PRN Reason: Nausea And Vomiting Stop: 05/04/20 11:44 Multivitamins (Multivitamin Tab) 1 tab [facility] [place] Stop: 05/05/20 08:59 Last Admin: 04/08/20 08:48 Dose: 1 tab Documented by: Multivitamins/Minerals (Multivitamin W/ Minerals Tab) 1 tab PO QAM [facility] Stop: 05/03/20 17:29 Last Admin: 04/08/20 08:42 Dose: 1 tab Documented by: Naloxone HCl (Narcan) 0.1 mg IV UD PRN PRN Reason: Opiate Overdose Stop: 05/03/20 17:01 Naloxone HCl (Narcan) 0.1 mg IV Q5M PRN PRN Reason: Oversedation/Resp Depression Stop: 05/04/20 11:44 Emergen-C: Non- Formulary Patient's Own Med 1 ea PO DAILY [facility] Stop: 05/06/20 14:59 Last Admin: 04/08/20 08:45 Dose: 1 ea Documented by: Ondansetron HCl (Zofran) 4 mg IV Q6H PRN PRN Reason: Nausea And Vomiting Stop: 05/03/20 17:01 Senna/Docusate Sodium (Senokot S) 2 tab PO [facility] Stop: 05/03/20 20:59 Last Admin: 04/08/20 20:43 Dose: Not Given Documented by: Sennosides (Senokot) 17.2 mg PO [facility] Stop: 05/04/20 20:59 Last Admin: 04/08/20 20:43 Dose: Not Given Documented by: Tramadol HCl (Ultram) 50 mg PO Q4H PRN PRN Reason: Pain Stop: 05/08/20 11:28 Valsartan (Diovan) 160 mg PO QAM [facility] Stop: 05/04/20 08:59 Last Admin: 04/08/20 08:45 Dose: 160 mg Documented by: Vitamin D (Vitamin D3) 5,000 units PO QAM [facility] Stop: 05/04/20 08:59 Last Admin: 04/08/20 08:42 Dose: 5,000 units Documented by: PG Care Time/CCT Total # of Minutes Spent Total Time Spent: 35 Total Time Spent with Patient: Total time spent is greater than 50% in coordination of care (as documented) at patient's floor/unit and/or counseling patient: spent 25 minutes with patient and her daughter Coding Level of Care Code 63065 Subseq Hosp Care Lvl 3 Diagnoses 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 M84.452A Breast cancer C50.919 Bilateral lower extremity edema R60.0 Leukocytosis D72.829 Osteoporosis M81.0 Hypertension I10 Dyslipidemia E78.5 Chronic kidney disease N18.9 Macular degeneration H35.30 Spinal stenosis M48.00 Cystocele, midline N81.11 Sinus tachycardia R00.0 Reactive depression (situational) F32.9 DVT prophylaxis Z29.9
[2020-04-09] MEDS: ACETAMINOPHEN 500 MG TAB PO SCH (03:11)
[2020-04-09] MEDS ORDERED: Nursing to Pharmacy Communication SCH (03:15)
[2020-04-09] MEDS: CYANOCOBALAMIN 500 MCG TABLET (VITAMIN B-12) PO SCH (09:10)
[2020-04-09] MEDS: ASCORBIC ACID 500 MG TAB PO SCH (09:10)
[2020-04-09] MEDS: FERROUS GLUCONATE 324 MG TAB PO SCH (09:10)
[2020-04-09] MEDS: EMERGEN C PO SCH (09:10)
[2020-04-09] MEDS: ESCITALOPRAM OXALATE 10 MG TAB PO SCH (09:11)
[2020-04-09] MEDS: MULTIVITAMIN TAB PO SCH (09:12)
[2020-04-09] MEDS: FUROSEMIDE 20 MG TAB PO SCH (09:12)
[2020-04-09] MEDS: AMLODIPINE BESYLATE 5 MG TAB PO SCH (09:12)
[2020-04-09] MEDS: CEROVITE ADV FORMULA TAB PO SCH (09:12)
[2020-04-09] MEDS: VALSARTAN 80 MG TAB PO SCH (09:13)
[2020-04-09] MEDS: ATORVASTATIN 10 MG TAB PO SCH (09:13)
[2020-04-09] MEDS: DOCUSATE SODIUM 100 MG CAP PO SCH ×2 (09:13→09:17)
[2020-04-09] MEDS: CHOLECALCIFEROL 1,000 UNITS 25 MCG TAB PO SCH (09:14)
[2020-04-09] MEDS: ASPIRIN 81 MG ECTAB PO SCH (09:14)
[2020-04-09] MEDS ORDERED: ACETAMINOPHEN 500 MG TAB PO SCH (11:00)
--- NOTE | 2020-04-09 13:57 | Progress Notes ---
DATE: 04/09/2020 SUBJECTIVE: An 89-year-old white female now postop day 5 from a left cemented total hip replacement for fracture. She is doing pretty well. Still sore, but getting better. She is hoping to go to rehab today. No chest pain or shortness of breath. OBJECTIVE: VITAL SIGNS: Temperature 36.5. Vital signs stable. GENERAL: Shows a pleasant elderly female. She was walking from the bathroom to her bed with a walker and doing quite well when I visited her today. EXTREMITIES: Examination of left hip reveals the incision to be clean, dry and intact. She has a slight bit of serous drainage. Her hip is located. She is neurologically intact. ASSESSMENT: An 89-year-old white female, 5 days out from a left hybrid total hip replacement done for fracture with underlying arthritis. She is doing pretty well. Wound looks good. A little bit of serous drainage, which is not unusual. Pain seems to be controlled. PLAN: 1. DVT prophylaxis including thigh-high TEDs, SCDs, and aspirin twice a day for the next 6 weeks. 2. PT/OT. She can weightbear as tolerated. Needs to obey hip precautions. 3. Pain control, doing okay with current pain regimen. 4. Medical management as per the medicine service. 5. Disposition: She is hopefully going to [facility] today. She appears medically stable and ready to go as long as accepted.
--- NOTE | 2020-04-11 22:02 | Discharge Summary ---
Date of Service April 09, 2020 Admission HPI Per Admitting Provider This patient is an 89-year-old female with a history of HTN, hyperlipidemia, CKD stage II-III, lower extremity edema secondary to venous insufficiency, osteoporosis, spinal stenosis with chronic pain, cystocele, macular degeneration and history of gastric ulcer with recent diagnosis of likely metastatic breast cancer who presents to the ER with significantly worsening left hip pain. She has had left hip pain for the last month. An x-ray initially showed arthritis a month ago. 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 She was being treated with NSAIDs and a prednisone taper and then tramadol for left hip pain but the pain became worse to the point where she could not walk for the last few days. Here in the ER, she was found to have a slightly angled fracture of the base of the left femoral neck with slight superior migration of the left femoral shaft on a CT scan of the pelvis which was then confirmed also on plain films. Her WBC count was elevated at 15 K, but has been afebrile. No urinary symptoms, no cough or chest pain or shortness of breath. Denies nausea or vomiting, no abdominal pain. She will be admitted for left hip pathologic fracture for pain control and further evaluation with orthopedics. She has had no known COVID contacts and no risk factors for COVID. She lives alone and her daughter assists her. Principal Diagnosis Left hip fracture Discharge Exam Constitutional WD/WN, vitals as above Eyes PERRL, conjunctivae normal, anicteric sclerae ENMT external ear and nose normal, oropharynx normal Neck trachea midline, no thyromegaly Respiratory normal respiratory effort; no respiratory distress and no cough Auscultation: lungs clear to auscultation bilaterally and + diminished lung sounds (bases) Cardiovascular Rate/Rhythm: regular rate and regular rhythm Heart Sounds: normal S1 and normal S2; no murmur Vessels: no JVD Extremities: normal capillary refill and + edema (mild in hands) Gastrointestinal (Abdomen) Inspection/Auscultation: abdomen normal to inspection and normal bowel sounds Percussion/Palpation: abdomen soft and normal to percussion; abdomen nontender, no guarding and abdomen not rigid Musculoskeletal Head/Neck/Chest: normocephalic, head atraumatic and neck supple Extremities: + limited ROM of extremities (hip due to pain) and strength 5/5 throughout; no cyanosis and no clubbing Skin no rashes, warm and dry Neurologic patellar DTR's 2+ bilat, sensation intact and PERRL, EOMI, accommodation nl, no face palsy, no dysarthria Psychiatric A+Ox3, euthymic affect Orientation: alert and oriented x 3 Affect: + depressed affect Mood: + depressed mood Lymphatic no cervical or axillary lymphadenopathy Discharge Data Allergies Allergy/AdvReac Type Severity Reaction Status Date / Time povidone-iodine Allergy Mild Rash Verified 04/03/20 11:17 triamcinolone [From Kenalog] Allergy hoarseness Verified 04/03/20 11:17 chlorthalidone AdvReac Intermediate hypercalcem Verified 04/03/20 11:17 ia Consultations 04/03/20 13:29 ED Decision to Admit Stat 04/03/20 14:43 Consult Orthopedic Surgery Routine 04/03/20 14:47 Consult Health Information Management Routine 04/03/20 17:02 Consult Anesthesiology Routine Consult Case Management - Discharge Planning Routine 04/04/20 11:45 Consult Case Management - Discharge Planning Routine Procedures Performed Operation Date: 04/04/20 08:00 Actual Procedures p Total Hip Arthroplasty Cemented(Left) - [place] Pena Ordered Studies 04/03/20 11:06 CT pelvis wo con Stat 04/03/20 16:39 US venous doppler LE LT Stat 04/07/20 10:54 CT angio chest PE protocol Urgent Hospital Course (1) 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: Presented with progressively worsening left hip pain over the last month to the point where she could no longer walk and had severe pain With region of hypermetabolic activity noted in the left hip on recent PET/CT scan on 03/31 performed due to new diagnosis of breast cancer Fracture may be related to stress fracture in the setting of osteoporosis versus pathologic fracture related to metastatic breast cancer s/p left hybrid ANDRES pathology of left hip shows stress fracture, no evidence of metastatic breast CA drop in Hb to 8.5 represents mild acute blood loss anemia, blood pressure and HR stable no further signs of bleeding continue aspirin 81 BID for DVT prophylaxis continue PT/OT planning on rehab, discharge to [facility] (2) Breast cancer: Recently diagnosed, in the right breast, with evidence of hypermetabolic activity in right-sided right axillary, subpectoral and internal mammary chain lymph node involvement, as well as a hypermetabolic mass in the right hepatic lobe of the liver, and also with uptake on PET/CT in the left femoral neck. She has already been seen by Dr. Horner on one occasion for consultation in his office and he was awaiting results of PET/CT scan. 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 Horner, plan for chemotherapy, likely hormone therapy (3) Bilateral lower extremity edema: Patient has a long history of lower extremity edema and takes Lasix as needed Venous Doppler of the left lower extremity is negative for DVT resume Lasix, responding well already (4) Leukocytosis: WBC count elevated at 15 with neutrophilia on admission She is afebrile and no evidence of infection anywhere Suspect this is a stress response due to significant pain. Also completed a recent course of prednisone which could be contributing. WBC down to 10k day prior to discharge (5) Osteoporosis: -Continue home vitamin D -She is not currently on treatment otherwise for osteoporosis (6) Hypertension: Blood pressure significantly elevated upon admission which is likely secondary to pain -Continue home valsartan, amlodipine -Give IV hydralazine as needed SBP greater than 190 -Pain control BP normal today (7) Dyslipidemia: Continue home atorvastatin (8) Chronic kidney disease: CKD stage II-III, baseline GFR in the 50s to 60s Currently at baseline creatinine of 0.75 -Avoid nephrotoxins -renally dose meds when appropriate -follow BMP (9) Macular degeneration: Continue eye vitamins (10) Spinal stenosis: Pain control as needed (11) Cystocele, midline: Has a pessary in place Padilla catheter currently inserted (12) Sinus tachycardia: CT chest negative for PE likely HR being driven by anemia, pain monitor HR below 100 on day of discharge (13) Reactive depression (situational): due to breast CA, hip fracture, missing her daughter, need to go to [facility] patient wants SSRI will start Lexapro 10mg daily explained to her and her daughter that this is situational depression she still wants to try SSRI may be benefitial in long run as her breast cancer will continue to give her depression follow up with PCP (14) DVT prophylaxis: aspirin BID Disposition- continue medical floor plan for [facility] tomorrow Full code All care discussed with daughter at the bedside at length, 20 minutes at the bedside with daughter Total Time Total Time Spent Total Time Spent (In Minutes): 35 minutes Total Time Includes: Examination of the Patient, Discharge Planning, Medication Reconciliation and Other (20 minutes with daughter at the bedside) Discharge Plan Discharge Items Patient Disposition: Transfer Inpatient Rehab Fac Reason For Visit: L HIP FX Discharge Diagnosis: Left Hip Replacement done for fracture/ Activity: Per Instructions section Activity Comment: Follow/Obey hip precautions at all times. Non-emergency contact: Surgeon Call non-emergency contact if: you have any medication questions Follow-up/Referrals: Viktor Ayon DO [Primary Care Provider] - Diet: Regular Addtl Attending Provider Instructions: ACTIVITY RECOMMENDATIONS: Physical Therapy: * Aggressive physical therapy is not usually needed. You will learn to take care of yourself safely and walk. * Follow the "Hip Precautions Instructions." * In some cases, the case management social worker at the hospital will arrange to have a therapist come to your house for the first couple of weeks to help you learn these skills. * You need to practice on your own or with the help of a family member as needed. * When you learn these skills, most of the therapy can be done on your own. Home Exercise: * You were shown a series of exercises in the hospital. Do these exercises three to four times each day including the exercises you were shown in physical therapy. Walking: * Get up and walk several times each day. For the first four weeks, try not to stand or walk for more than one hour at a time. If you do stand or walk for more than one hour, you will not hurt anything, but your leg will likely swell. * As you feel comfortable, you may change from the walker or crutches to a cane and then to independent walking. MEDICATIONS: New Medicine: * You will likely be taking one or more of these medicines: 1. Oxycodone - Take, as directed, when you need it, every four to six hours to control your pain. 2. Iron Sulfate - Take two times each day for the month after surgery to help you replace the blood lost during surgery. 3. Aspirin - Thins your blood to lessen the chance of forming a blood clot. * The most common side effects of pain medicine and iron are nausea and constipation. If nausea or constipation is too much of a problem or if you have any questions about your new medicines or doses, call [facility] at [phone]. We will try to help you manage these issues. "VERY IMPORTANT TO READ AND REVIEW" Pain: * The immediate post-operative period after hip replacement surgery is often quite painful. * You are given a prescription for pain medicine. You should take it, as directed, when you need it, especially before physical therapy and before going to bed. Pain that interferes with sleep is very common and can last several months. * You will likely need pain medicine for the first two to four weeks. It will not stop all of the pain. The pain will lessen and as you feel better, you may change to milder pain medicine such as Tylenol. * The most common side effects of pain medicine are nausea and constipation, so don't take more than you need. SPECIAL CARE INSTRUCTIONS: TEDs/Elastic Stockings: * The white elastic stockings help limit swelling and prevent blood clots from forming in your legs. The more you wear them, the more they work. * Wear them for six weeks. Prevention of Infection: * Take antibiotics one hour before any dental cleaning, dental work, urological procedure, gastrointestinal procedure or any invasive surgery in order to prevent your new joint from getting infected. * You may get the antibiotics from the doctor performing the procedure or you may call our office at before and we will call in a prescription to the pharmacy of your choice. Things to Watch For: * Drainage from the incision site that occurs more than one week after your surgery. * Severely increased leg pain or swelling. * Increased redness at the incision site. * Fever above 102 degrees Fahrenheit. * Unusual chest pain or shortness of breath. * Unusual pain or burning with urination. Call [facility] at with any of the above problems or if you have any questions about your medicines or recovery. FOLLOW UP VISIT: Make an appointment to see your doctor for approximately two weeks after surgery for a progress check and staple removal by calling the office at . Addtl [facility] Provider Instructions: Medicine consult Situational depression: patient interested in taking SSRI explained that symptoms will take a few weeks to respond to Lexapro explained that she has reasons for depression with new breast CA diagnosis, hip surgery, being away from home and family she is trying to stay positive will try to eat more, she is sleeping well motivated to get through rehab to get back home Breast cancer, triple positive on biopsy, PET scan with lesion in right lobe of liver no plans for surgery since it is metastatic will follow up with Dr. Horner for possible hormone mediated therapy Acute blood loss anemia: Hb dropped to 8.5, BP stable, no further signs of blood loss Tachycardia: CTA chest negative for PE, HR is now better Hip and knee pain: try to use Ultram as first line for pain control, she admits that her hip pain was actually worse prior to surgery as she was dealing with stress fracture Pending Studies at Discharge: No Stand-Alone Forms: My [facility] Skilled Items Patient informed of condition?: Yes DNR: No Discharge Level of Care: Acute rehab Communicable Disease: No Discharge Prognosis: Improving Lines: None Urinary Catheter: No Medications and DC Order Prescriptions: New ferrous gluconate 324 mg (38 mg iron) Tablet 324 mg PO BIDM 30 Days Qty: 60 RF: 0 acetaminophen 500 mg Tablet 1,000 mg PO TID 30 Days Qty: 180 RF: 0 aspirin 81 mg Tablet,Delayed Release (Dr/Ec) 81 mg PO BID 45 Days Qty: 90 RF: 0 oxycodone 5 mg Tablet 5 mg PO Q4H PRN (Reason: pain) Qty: 30 RF: 0 escitalopram oxalate 10 mg Tablet 10 mg PO QAM 30 Days Qty: 30 RF: 1 Continued tramadol 50 mg tablet 50 - 100 mg PO Q8H PRN (Reason: pain) Qty: 90 RF: 0 valsartan 160 mg tablet 160 mg PO QAM Qty: 90 RF: 3 meloxicam 15 mg tablet 15 mg PO DAILY Qty: 30 RF: 0 cyanocobalamin (vitamin B-12) 500 mcg tablet 500 mcg PO QAM RF: 0 biotin 10 mg tablet 10 mg PO Q2D RF: 0 cholecalciferol (vitamin D3) 5,000 unit tablet 5,000 unit PO QAM RF: 0 furosemide 20 mg tablet 20 mg PO DAILY PRN (Reason: Fluid Retention) Qty: 30 RF: 0 atorvastatin 10 mg tablet 5 mg PO QAM Qty: 45 RF: 0 amlodipine 5 mg tablet 5 mg PO QAM Qty: 90 RF: 3 estradiol 0.01 % (0.1 mg/gram) cream 2 gm PV WK RF: 0 ascorbic acid (vitamin C) 500 mg capsule 500 mg PO QAM RF: 0 PreserVision Lutein 226 mg-200 unit -5 mg-0.8 mg Capsule 1 cap PO BID RF: 0 Immune Support 250-12.5 mg Tablet,Chewable 12.5 mg PO QAM RF: 0 Discontinued ferrous sulfate 325 mg (65 mg iron) tablet 325 mg PO 3XWK RF: 0 acetaminophen 500 mg capsule 500 mg PO TID RF: 0 Discharge Orders: Discharge Order (Routine); Ordered 04/09/20 Ordered By: Corey Silva/Other Patient Handouts: Hip Precautions, Total Hip Replacement Admission Data Admit Date/Time: 04/03/20 14:05 Attending Provider: Abdirashid Peña Admit Provider: Augusta Bradshaw Primary Care Provider: Viktor Ayon Other Providers: Abdirashid Peña ; Martha Galaviz ; Corey Hankins ; [facility] Other Interventions: Discharge Summary Assessment (RN) Last Done: 04/09/20 14:47 Coding Level of Care Code D/C Day Management >30 mins Diagnoses 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 M84.452A Breast cancer C50.919 Bilateral lower extremity edema R60.0 Leukocytosis D72.829 Osteoporosis M81.0 Hypertension I10 Dyslipidemia E78.5 Chronic kidney disease N18.9 Macular degeneration H35.30 Spinal stenosis M48.00 Cystocele, midline N81.11 Sinus tachycardia R00.0 Reactive depression (situational) F32.9 DVT prophylaxis Z29.9
== END 2020-04-09 16:09 | DRG 470 ==
LOC: ED 10:26 → 3N 14:05 → SUATTDRO 14:05 → 3N 16:01